=== PATIENT | male | born 1935 | race Caucasian/White ===

== ENCOUNTER 2022-10-24 09:28 | Outpatient (CLI) | payer MEDICARE, BC, SELFPAY | END 2022-10-24 09:29 | disposition home or self-care (01) | PROVIDERS: Visit Provider Family Medicine | DX: I10 Essential (primary) hypertension (principal); I48.91 Unspecified atrial fibrillation | CPT/HCPCS: 80053; 85651 ==

== ENCOUNTER 2023-06-25 10:58 | Outpatient (CLI) | payer MEDICARE, BC, SELFPAY | END 2023-06-25 10:59 | disposition home or self-care (01) | PROVIDERS: PCP Family Medicine; Visit Provider Family Medicine | DX: Z01.818 Encounter for other preprocedural examination (principal); I10 Essential (primary) hypertension | CPT/HCPCS: 80048; 85025 ==

== ENCOUNTER 2023-07-11 11:22 | Inpatient (IN) | payer MEDICARE, BC, SELFPAY ==
[2023-07-10] VITALS (25 sets, daily range): BP systolic 86–116; BP diastolic 55–78; PULSE 84–121; RESP 14–18; TEMP 35.6–36.9; O2SAT 90–100; BMI 31.1
[2023-07-10] MEDS: fentaNYL 100 MCG/2 ML inj IVP (06:32)
[2023-07-10] MEDS: OXYCODONE (CR) 10 MG TAB.ER.12H PO (06:32)
[2023-07-10] MEDS: MIDAZOLAM HCL 1 MG/ML inj IVP (06:32)
[2023-07-10] MEDS: ACETAMINOPHEN 500 MG TABLET 1000 MG PO ×3 (06:32→20:22)
[2023-07-10] MEDS: LACTATED RINGERS 1000 ML 1,000 ML 100 ML IV (06:35)
--- OUTSIDE RECORDS SUMMARY | 2023-07-10 06:47 | XMS_ITS | Encounter Summary ---
Author Name [facility] Organization [facility] Address [address] [place] [address] Support Name Relationship Address Phone DANIEL CUEVAS Next of Kin [phone] [place] [address] DANIEL CUEVAS Emergency Contact [address], [place] [address] Insurance Providers: All historical and current Section Date Range: From patient's date of to the date document was created. This section includes the names of all active insurance providers for the patient. Insurance Provider Type of Coverage Plan Name Start of Policy Coverage End of Policy Coverage Group Number Member ID Insurance Provider's Telephone Number Policy Mathur's Name Patient's Relationship to Policy Mathur BCBS FERCHO VENTURA (WNR) MEDICARE ADVANTAGE DEBBIE REED IDU Apr 02, 2016 [id number] [phone] SARA CUEVAS PATIENT Selected Encounter This section includes the information on record at [place] for the Encounter. Date/Time Encounter Type Encounter Description Reason Pro vider Source IHE Encounter Template Text not used by [place]
--- OUTSIDE RECORDS SUMMARY | 2023-07-10 06:47 | XMS_ITS | Clinical Summary ---
Author Name Unknown Organization [place] Address [facility] [place] [address] Care Team Providers Care Varnish Mixer Name Role Phone Tony Ramos Primary Care Provider Sin Jones MD Unavailable [phone] Allergies Active Allergy Reactions Criticality Noted Date Comments Furosemide Rash Low 11/14/2022 Rash, Itching Ibuprofen Swelling Medium 03/07/2016 Swelling of Lips and numbness Medications Medication Sig Dispensed Refills Start Date End Date Status dutasteride (AVODART) 0.5 MG capsule Take 0.5 mg by mouth daily 0 Active amLODIPine (NORVASC) 5 MG tabletIndications:Hyp ertension Take 5 mg by mouth daily 0 Active apixaban ANTICOAGULANT (ELIQUIS) 5 MG tablet Take 5 mg by mouth 2 times daily 0 Active Calcium Carbonate-Vitamin D 500-5 MG-MCG TABS Take 0.5 tablets by mouth every other day 0 Active diltiazem (CARDIZEM) 120 MG tablet Take 120 mg by mouth 4 times daily 0 Active furosemide (LASIX) 40 MG tablet Take 40 mg by mouth daily 0 Active hydrOXYzine (ATARAX) 10 MG tablet Take 10-20 mg by mouth every 6 hours as needed for itching 0 Active multivitamin w/minerals (THERA-VIT-M) tablet Take 1 tablet by mouth daily 0 Active spironolactone (ALDACTONE) 25 MG tablet Take 25 mg by mouth daily 0 Active Multiple Vitamins-Minerals (PRESERVISION AREDS PO) Take 1 tablet by mouth daily 0 Active pyridOXINE (VITAMIN B-6) 50 MG tablet Take 50 mg by mouth daily 0 Active tamsulosin (FLOMAX) 0.4 MG capsuleIndications:Ri ght inguinal hernia Take 1 capsule (0.4 mg) by mouth daily Begin 4 days before surgery, including morning of surgery. 7 capsule 0 11/14/2022 Active Social History Tobacco Use Types Packs/Day Years Used Date Smoking Tobacco: Former Alcohol Use Standard Drinks/Week Comments No 0 (1 standard drink = 0.6 oz pur e alcohol) 1Xweek Adolescent Education Answer Date Record ed Getting School Help Needed Not on file 12/23 Sex and Gender Information Value Date Recorded Sex Assigned at Not on file Gender Identity Not on file Sexual Orientation Not on file Last Filed Vital Signs Vital Sign Reading Time Taken Comments Blood Pressure 121/69 11/14/2022 12:30 PM CDT Pulse 79 11/14/2022 12:30 PM CDT Temperature - - Respiratory Rate 14 03/07/2016 10:2 0 AM CLOUD DEVELOPER Oxygen Saturation 97% 11/14/2022 12: 30 PM CDT Inhaled Oxygen Concentration - - Weight 93 kg (205 lb 2 oz) 11/14/2022 1 2:30 PM CDT patient reported Height 171.5 cm (5' 7.5) 11/14/2022 12 :30 PM CDT patient reported Body Mass Index 31.65 11/14/2022 12:30 PM CDT Plan of Treatment Health Maintenance Due Date Last Done Comments ADVANCE CARE PLANNING 1935 ANNUAL REVIEW OF HM ORDERS 1935 ZOSTER IMMUNIZATION (1 of 2) 1985 RSV VACCINE ( & 60+) (1 - 1-dose 60+ series) 1995 FALL RISK ASSESSMENT 01/18/2000 MEDICARE ANNUAL WELLNESS VISIT 01/18/2000 Pneumococcal Vaccine: 65+ Years (2 of 2 - PPSV23 or PCV20) 01/12/2015 01/12/2014 COVID-19 Vaccine ( season) 2022 03/18/2021, 03/18/2021, 06/03/2020, Additional history exists INFLUENZA VACCINE (#1) 2022 02/03/2021, 2016 PHQ-2 (once per calendar year) 2023 DTAP/TDAP/TD IMMUNIZATION (3 - Td or Tdap) 08/05/2029 08/06/2019, 04/24/2015 HPV IMMUNIZATION Aged Out No longer e ligible based on patient's age to complete this topic IPV IMMUNIZATION Aged Out No longer e ligible based on patient's age to complete this topic MENINGITIS IMMUNIZATION Aged Out No l onger eligible based on patient's age to complete this topic RSV MONOCLONAL ANTIBODY Aged Out No l onger eligible based on patient's age to complete this topic Care Teams Varnish Mixer Relationship Specialty Start Date End Date Tony Ramos [facility] [address] [place] [address] PCP - General Family Practice 03/06/16 Sin Jones MD [address] [facility] [address] [place] [address] Assigned Surgical Provider 11/18/22
--- OUTSIDE RECORDS SUMMARY | 2023-07-10 06:47 | XMS_ITS ---
Author Name Unknown Organization [facility] Address [address] [place] [address] Care Team Providers Care Firing Pin Gauger Name Role Phone Unavailable Unavailable Unavailable Surgery Details Not on file Complications Check Surgery Details section. Procedure Estimated Blood Loss Check Surgery Details section. Procedure Findings Check Surgery Details section. Procedure Specimens Taken Check Surgery Details section.
--- OUTSIDE RECORDS SUMMARY | 2023-07-10 06:47 | XMS_ITS | Referral Summary ---
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
--- OUTSIDE RECORDS SUMMARY | 2023-07-10 06:47 | XMS_ITS | Encounter Summary ---
Author Name [facility] Organization [facility] Address [address] [place] [address] Support Name Relationship Address Phone FAITH DANIEL Asher Next of Kin [address] [place] [address] IFEOMA CUEVASAARON Asher Emergency Contact [phone] [place] [address] Insurance Providers: All historical and current [...] Mathur's Name Patient's Relationship to Policy Mathur BC FERCHO VENTURA (WNR) MEDICARE ADVANTAGE DEBBIE REED IDU Apr 02, 2016 [id number] [phone] SARA CUEVAS PATIENT Selected Encounter This section includes the information on record at [place] for the Encounter. Date/Time Encounter Type Encounter Description Reason Pro vider Source August 14, 2022 03:32 PM Outpatient Encounter COMMUNITY CARE CONSULT IHE Encounter Template Text not used by [place] Plan of Treatment: Future Appointments (+ 6 months) and Future Tests (+/- 45 days) The Plan of Treatment section includes future care activities for the patient from all [place] treatmentfacilities. This section includes future appointments and future orders which are active, pending or scheduled. Future Appointments This section includes appointments that were scheduled to occur 6 months from the date of the Encounter, up to a maximum of 20 appointments. The data comes from all [place] treatment facilities. Appointment Date/Time Appointment Type Appointme nt Facility Name Sep 20, 2022 10:00 AM [facility] Oct 11, 2022 09:00 AM AMBULATORY - MEDICINE [facility] Nov 22, 2022 08:00 AM AMBULATORY - MEDICINE [facility] Encounter Notes: All associated encounter notes This section contains the clinical notes associated to the Encounter. Date/Time Encounter Note(s) Provider Source August 14, 2022 03:33 PM PHARMACY NOTE: LOCAL TITLE: PHARMACY NON [facility] CARE MEDICATIONS STANDARD TITLE: PHARMACY NOTE DATE OF NOTE: AUGUST 14, 2022@15:33 ENTRY DATE: AUGUST 14, 2022@15:33:15 AUTHOR: JESSICA WATTERS COSIGNER: URGENCY: STATUS: COMPLETED [facility] RECEIVED electronic prescription(s) (eRX(s)) from NON-VA Provider: Date eRX received: July not eligible to receive non-VA prescription(s) at this time. Prescription(s) REDIRECTED via FAX to [facility] (Dual[facility] eRx Reference #: [id number] eRx Prescription Information: eRx Drug: apixaban 5 mg tablet (ELIQUIS) eRx Qty: 28 eRx Refills: 0 eRx Days Supply: eRx Written Date: AUGUST 14, 2022 eRx Issue Date: Prohibit Renewals: No eRx Sig: Take 1 tablet (5 mg total) by mouth 2 (two) times a day for 14 days. /cheko/ MIRANDA YORK Pharmacist Signed: 08/14/2022 15:[address] [facility]
--- OUTSIDE RECORDS SUMMARY | 2023-07-10 06:47 | XMS_ITS | Referral Summary ---
Author Name Unknown Organization [facility] Address [address] [place] [address] Care Team Providers Care Tow Mate Name Role Phone Elsewhere, Pcp Primary Care Provider Unavailabl e Source Comments Patient records contain information from all sites at [facility]. For routine questions regarding patient records, call [phone] during business hours, M-F 8:00 AM - 5:00 PM Central Time. Record requests for emergency care only can be directed to [phone] at any time.[facility] Allergies Active Allergy Reactions Criticality Noted Date Comments Ibuprofen Angioedema (Reselect Reaction) 01/07 Medications Medication Sig Dispensed Refills Start Date End Date Status amLODIPine (NORVASC) 5 mg tablet Take 1 tablet by mouth daily. 0 02/22/2022 Active aspirin 325 mg tablet Take 1 tablet by mouth daily. 0 02/22/2022 Active cyanocobalamin (VITAMIN B12) 100 mcg tablet Take 1 tablet by mouth daily. 0 02/22/2022 Active pyridoxine, vitamin B6, (VITAMIN B6) 50 mg tablet Take 1 tablet by mouth daily. 0 02/22/2022 Active MULTIVITAMIN ORAL Take 1 tablet by mouth daily. 0 02/22/2022 Active calcium carbonate/vitamin D3 (CALCIUM 500 + D ORAL) Take by mouth. 0.5 a capsul every other day 0 Active vitamins A,C,U-gtmd-ifkdxi (PRESERVISION AREDS) 7,160 Units-113 mg-100 Units per tablet Take 1 tablet by mouth daily. 0 Active dilTIAZem CD (CARDIZEM CD/CARTIA XT) 120 mg 24 hr capsule Take 1 capsule (120 mg total) by mouth daily. 30 capsule 1 07/25/2022 Active Eliquis 5 mg tablet TAKE 1 TABLET (5 MG TOTAL) BY MOUTH 2 (TWO) TIMES A DAY FOR 14 DAYS. 60 tablet 11 08/25/2022 Active furosemide (LASIX) 40 mg tablet Take 1 tablet (40 mg total) by mouth daily. 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 10/20/2017 Resolved Problems Problem Noted Date Diagnosed Date Resolved Date Fracture Hip Closed Initial Left 10/21/2017 07/25/2022 Fracture Hip Closed Initial Left 10/20/2017 10/20/2017 Fracture Femur Intertrochant alex Displaced Closed Subsequent With Routine Healing Left 10/20/2017 07/25/2022 Immunizations Name Administration Dates Next Due Influenza high dose QV(65 years or older) (PF) 1 04/05/2020 PCV13 01/12/2014 SARS-COV-2 (COVID-19) - PFIZ ER (Discontinued)(12 years or older) 06/03/2020,04/30/2020 SARS-COV-2 (COVID-19) - PFIZ ER TS(Discontinued)(12 years or older) 03/18/2021 Tdap 08/06/2019,04/24/2015 influenza high dose (65 years or older) (PF) Social History Tobacco Use Types Packs/Day Years Used Date Smoking Tobacco: Former Cigars Passive Smoke Exposure: Never Smokeless Tobacco: Former Tobacco Cessation:Counseling Given: Not Answered Alcohol Use Standard Drinks/Week Comments No 0 (1 standard drink = 0.6 oz pur e alcohol) PHQ-2 Answer Date Recorded PHQ-2 Score 0 08/10/2022 Nutrition Answer Date Recorded Nutrition: EVOO Fat Source Unknown 06/04 Nutrition: Servings of Fruits/Vegetables per Day Not on file 06/04/2020 Dental Answer Date Recorded Dental: Regular Dentist Unknown 06/05/19 Sex and Gender Information Value Date Recorded Sex Assigned at Male 11/09/2017 9:35 AM CDT Gender Identity Male 11/09/2017 9:35 AM CDT Sexual Orientation Straight 11/09/2017 9: 35 AM CDT Last Filed Vital Signs Vital Sign Reading Time Taken Comments Blood Pressure 120/70 09/14/2022 11:20 AM CDT Pulse 112 09/14/2022 11:20 AM CDT Temperature 36.2 ??C (97.2 ??F) 09/14/2022 11:20 AM C DT Respiratory Rate 16 09/14/2022 11:20 AM CDT Oxygen Saturation 98% 08/15/2022 1:42 PM CDT Inhaled Oxygen Concentration - - Weight 90.7 kg (200 lb) 09/14/2022 11:20 AM CDT Height 172.7 cm (5' 7.99) 08/10/2022 1:56 PM CD T Body Mass Index 30.42 08/10/2022 1:56 PM CDT Plan of Treatment Not on file Medical Devices Implanted Type Area Commercial Roofer Device Identifier Shelf Expiration Date Model / Serial / Lot 125 Left Trigen Intertan 10s Nail Tl-6al-4v Implanted:Qty : 1 on 10/21/2017 at [facility] Other Left: Hip [employer] [id number] 04/02/2023 [id number] / / [id number] Trigen Intertan Subtroch Lag Screw Tl-6al-4v Implanted:Qty : 1 on 10/21/2017 at [facility] Other Left: Hip [employer] 08/29/2025 [id number] / / [id number] Advance Directives For more information, please contact: [phone] * Full Code (Latest Code Status on File) Date Activated Date Inactivated Comments 10/25/2017 12:02 AM 11/02/2017 3:56 PM Question Answer Comments Full Code: Not Discussed Due to: Not medically appropriate * Full Code Date Activated Date Inactivated Comments 10/21/2017 12:22 AM 10/24/2017 11:59 PM Question Answer Comments Full Code: Not Discussed Due to: Not medically appropriate Care Teams Tow Mate Relationship Specialty Start Date End Date Elsewhere, Pcp PCP - General Petrophysical Engineer 04/11/19
--- OUTSIDE RECORDS SUMMARY | 2023-07-10 06:47 | XMS_ITS | Encounter Summary ---
Author Name Department of [facility] Organization [facility] of [facility] Address [address] [place] [address] Support Name Relationship Address Phone DANIEL CUEVAS Next of Kin [address] [place] [address] FAITHDANIEL Emergency Contact [phone] [place] [address] Insurance Providers: All historical and current [...] Mathur's Name Patient's Relationship to Policy Mathur [facility] (WNR) MEDICARE ADVANTAGE DEBBIE SOTOU Apr 02, 2016 [id number] [phone] SARA CUEVAS PATIENT Selected Encounter This section includes the information on record at [place] for the Encounter. Date/Time Encounter Type Encounter Description Reason Provider Source August 18, 2022 10:37 AM QNHP OL DIG ASSMT&MGMT 21+ CLINICAL PHARMACY ICD-10-CM Z79.01 jail (current) use of anticoagulants JAKE MCKEON [facility] Encounter Template Text not used by [place] Assessments - Encounter Diagnoses This section includes the primary and secondary diagnoses documented for the Encounter. 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 This section includes future appointments and future orders which are active, pending or scheduled. Future Appointments This section includes appointments that were scheduled to occur 6 months from the date of the Encounter, up to a maximum of 20 appointments. The data comes from all [place] treatment facilities. Appointment Date/Time Appointment Type Appointme nt Facility Name Sep 20, 2022 10:00 AM AMBULATORY - MEDICINE GANESH ORELL[facility] Oct 11, 2022 09:00 AM AMBULATORY - MEDICINE KATHY ROSARIO [facility] Nov 22, 2022 08:00 AM AMBULATORY - MEDICINE GANESH ORELLANA [facility] Encounter Notes: All associated encounter notes This section contains the clinical notes associated to the Encounter. Date/Time Encounter Note(s) Provider Source August 18, 2022 10:37 AM MEDICATION MGT CON SULT: LOCAL TITLE: ANTICOAGULATION CLINIC CONSULT STANDARD TITLE: MEDICATION MGT CONSULT DATE OF NOTE: AUGUST 18, 2022@10:37 ENTRY DATE: AUGUST 18, 2022@10:37:17 AUTHOR: JAKE MCKEON EXP COSIGNER: URGENCY: STATUS: COMPLETED ANTICOAGULATION CLINIC CONSULT Has ADDENDA DOAC INITIATION - Anticoagulant: Apixaban 5mg q12h Indication(s): Afib - Relevant PMH: -CKD3 - Prior major bleeds: -Prone to epistaxis, rt nostril only; nothing major thus far. Uses vaseline prn. - Prior anticoagulants: Pt was on apixaban 2.5mg q12h in 2018; perhaps DVT ppx post-ROBSON/fall - Start date: 07/12/22 per [place] records - Anticipated duration: Indefinite - CHADS2-VASC = age+2, htn = 3: Low risk - HAS-BLED = age =1: Moderate risk Care Coordination: [facility] [place] [facility] SUBJECTIVE/OBJECTIVE Obtained from chart review, [facility]/outside records, and patient. No Active bleeding/increased bleeding risk: - Occ nosebleed, rt nostril, since starting OAC; gently putting vaseline in nostril. No Active endocarditis: No Falls risk: Nothing recent, but did sustain hip fx after a fall. Now legs are not same length, has special shoes. No Abnormal mental status\compliance concerns: YES Significant drug interactions: - Pt self d/c ASA d/t epistaxis - Diltiazem: Minor DDI unless other meds that are inhibitors of both CY and P-glycoprotein are added. - Denied aspirin/NSAID use; counseled to avoid d/t bleed risk o He is aware to use APAP YES Alcohol use: Occ beer, never more than one - Advised etoh intake >2/24hrs and/or >= 8/week increases bleed risk Yes Renal or hepatic dysfunction: CKD3 No Valvular disease (mitral stenosis) or mechanical valve replacement: -ECHO, Pending 08/29 at [facility] No Active cancer/hypercoagulability: No History of bariatric or bowel resection surgery: No Weight >150kg/BMI >50. - Comanaged patients YES Agrees to management by our AC clinic; comanagement is not allowed. YES Agrees to contact us if DOAC stopped/dose changed by other providers. YES Agreeable to routine [facility] labs when requested. YES Agreeable to contacting us with major changes(health/medications) at OSH. - ELEN or already been on 2-4weeks No Recent health changes: No Upcoming procedures requiring interruption: No Bleeding or thromboembolic complications: -Occ nosebleed, rt nostril, since starting OAC No Falls or injuries: Identified by dashboard to review the following: Dosing Issue: Choice of anticoagulant and dose were evaluated for appropriateness Details: Other: tx as Afib Active and Recently Outpatient Medications (excluding Supplies): Active Outpatient Medications Status 1) AMLODIPINE BESYLATE 5MG TAB TAKE ONE TABLET BY MOUTH ACTIVE EVERY DAY FOR BLOOD PRESSURE 2) APIXABAN 5MG TAB TAKE ONE TABLET BY MOUTH EVERY 12 ACTIVE HOURS TO PREVENT STROKES 3) MULTIVIT/OPHTH AREDS2/LUTE/ZEAX CAP/TAB TAKE 1 TABLET ACTIVE BY MOUTH TWICE A DAY Active Non-VA Medications Status 1) Non-VA ASPIRIN 325MG TAB 325MG MOUTH EVERY DAY ACTIVE D/C 2) Non-VA CYANOCOBALAMIN 100MCG TAB 100MCG MOUTH EVERY DAY 3) Non-VA MULTIVITAMIN CAP/TAB 1 TABLET MOUTH EVERY DAY ACTIVE 4) Non-VA PYRIDOXINE HCL 50MG TAB 50MG MOUTH EVERY DAY ACTIVE 5) Non-VA SAW PALMETTO 1 CAPSULE MOUTH EVERY DAY ACTIVE DILTIAZEM CD 120MG Q24HR 8 Total Medications Labs ---- Age: 87 Height: 69.75 in [177.2 cm] (02/22/2022 14:39) Weight: 203.6 lb [92.35 kg] (02/22/2022 14:39) BMI: 29.5 Collection DT Specimen Test Name Result Units Ref Range 08/15/22 [place] Creat 1.5 08/10/22 [place] Creat 1.4 07/12/22 [place] Creat 1.3 02/22/2022 15:44 PLASMA CREATININE 1.6 H mg/dL 0.7 - 1.2 Cockcroft & Gault (Actual body weight) = ~45 mL/min Outside hemoglobin Lab result: 11.9 L Date: July 12, 2022 Location: [facility] Outside platelet count Lab result: 288 Date: July 12, 2022 Collection DT Spec WBC HGB HCT PLT MCV 02/22/2022 15:44 BLOOD 8.12 13.0 L 38.7 L 209 96.0 Collection DT Specimen Test Name Result Units Ref Range 02/22/2022 15:44 PLASMA BILIRUBIN, TOTAL 0.8 mg/dL 0.2 - 1.2 02/22/2022 15:44 PLASMA ALKALINE PHOSPHAT 64 U/L 40 - 150 02/22/2022 15:44 PLASMA AST/SGOT 72 H U/L Ref: <=34 02/22/2022 15:44 PLASMA ALT/SGPT 47 U/L Ref: <=55 ASSESSMENT/PLAN - Appropriate for DOAC use. - Baseline labs within the past ~30 days: o partially missing -LFTs, updated remaining labs will be checked with a creat f/u lab as below - MEETS/Does NOT meet 2 out of 3 criteria (age >/= 80 years, creatinine >/= 1.5,weight </= 60 kg) for apixaban dose reduction in A.fib. - Difficult to tell at this point if dose reduction is actually needed. Recent diuretic changes; unclear if Creat runs 1.5 or greater or not. Monitor- upward trend. 09/20/22 @1000 LCP Creat CC: 09/21 for creat results and check [facility] for ECHO results [08/29]. Pt is willing to cut tabs if his apixaban dose does need a decrease. - Approve DOAC use: Apixaban 5mg q12h - jail use of anticoagulants added to problem list. - Education attempt(s) below. Will mail DOAC/Rx education materials. - Appropriate review planned: periodic - Lab monitoring frequency defined by dashboard or as clinically indicated. - Monitor dashboard for labs, drug interactions, and compliance. Time spent: 50 minutes Anticoagulation Educational Assessment Part One Barriers/Special Needs No barriers identified Part Two Readiness to learn No barriers identified PARTICIPANTS: Patient TEACHING STRATEGY: 1:1, Written/print materials Apixaban Content Reviewed: o Recognize medication by names (apixaban (Eliquis)) & proper tablet identification (on prescription bottle) o Indication, expected duration for therapy o Daily dosage, importance of medication adherence, management of missed/extra doses o Monitoring requirements, importance of compliance with follow-up lab monitoring requirements o Risks and benefits of therapy to include possible adverse reactions or medication failure and what to do if these occur; fall-associated risks & importance of seeking urgent care if falls occur o Interactions (drug, alcohol, and disease states) o Importance of informing your anticoagulation provider as soon as possible when major changes in medications/health occur, upcoming procedures are expected that require interruption, or for evidence of new bleeds or thromboses Patient received a written, detailed copy of the educational handout to include contact information for anticoagulation clinic and instructions for how to obtain supply of medication. PATIENT/FAMILY RESPONSE (OUTCOME): Verbalizes critical information and understanding about the topic FOLLOW-UP RECOMMENDED: None needed /cheko/ JAKE MCKEON [facility] Clinical Data Processing Systems Project Planner Signed: 08/18/2022 15:55 08/18/2022 ADDENDUM STATUS: COMPLETED PCP- - [facility]: DILTIAZEM CD 120MG Q24HR -[place] provider aware pt also on amlodipine -Not sure why this RX was not sent with DOAC RX, but this was added when Afib diagnosed. Thanks /cheko/ JAKE MCKEON [facility] Clinical Data Processing Systems Project Planner Signed: 08/18/2022 15:58 Receipt Acknowledged By: 08/18/2022 16:31 /cheko/ KINGSTON TOSCANO CNP NP [place] 08/21/2022 09:23 /cheko/ DARELL [facility] 08/31/2022 ADDENDUM STATUS: COMPLETED Incorrect Darell Wayne tagged on addendum. This sign writer hand is [facility] care management coordinator and has reviewed above information. /cheko/ DARELL WAYNE Signed: 08/31/2022 10:24 JAKE MCKEON [facility]
--- OUTSIDE RECORDS SUMMARY | 2023-07-10 06:47 | XMS_ITS | Encounter Summary ---
Author Name [facility] Organization Department of [facility] Address [address] [place] [address] Support Name Relationship Address Phone FAITH DANIEL Asher Next of Kin [address] [place] [address] IFEOMA CUEVASAARON Asher Emergency Contact [phone] [place] [address] Insurance Providers: All historical and current [...] Mathur's Name Patient's Relationship to Policy Mathur [facility] (WNR) MEDICARE ADVANTAGE DEBBIE REED IDU Apr 02, 2016 [id number] [phone] SARA CUEVAS PATIENT Selected Encounter This section includes the information on record at [place] for the Encounter. Date/Time Encounter Type Encounter Description Reason Provider Source May 07, 2023 12:04 PM MTMS BY SIRENA SCOTT 15 MIN TELEPHONE/ELIO HALE ICD-10-CM Z79.01 [facility] (current) use of anticoagulants JUMANA DE LA CRUZ Encounter Template Text not used by [place] Assessments - Encounter Diagnoses This section includes the primary and secondary diagnoses documented for the Encounter. Date/Time Primary/Secondary Diagnosis Diagnosis Name Provider Source May 07, 2023 12:04 PM PRIMARY [facility] (current) use of anticoagulants [facility] May 07, 2023 12:04 PM SECONDARY Encounter for therapeutic drug level monitoring [facility] May 07, 2023 12:04 PM SECONDARY Unspecified atrial fibrillation [facility] Encounter Notes: All associated encounter notes This section contains the clinical notes associated to the Encounter. Date/Time Encounter Note(s) Provider Source May 07, 2023 12:04 PM PHARMACY OUTPATIEN T MEDICATION MGT NOTE: LOCAL TITLE: PHARMACY ANTICOAGULATION CLINIC F/U STANDARD TITLE: PHARMACY OUTPATIENT MEDICATION MGT NOTE DATE OF NOTE: MAY 07, 2023@12:04 ENTRY DATE: MAY 07, 2023@12:04:14 AUTHOR: VINOD RODRIGUEZ COSIGNER: URGENCY: STATUS: COMPLETED INITIAL DOAC FOLLOW-UP - Anticoagulant: Rivaroxaban 15mg tab with breakfast Indication(s): Afib - Relevant PMH: - CKD3 - Prior major bleeds: o Prone to epistaxis (R nostril only), uses Vaseline PRN - Prior anticoagulants: o Apixaban 2.5mg q12h (2017, perhaps DVT ppx post-ROBSON/fall); 07/2022-03/2023 (unclear why LMD recommended change, pcp notes indicate itching, do not have local records to review) - Start date: switched to [place] 03/2023 - Anticipated duration: Indefinite - CHADS2-VASC = age +2, HTN = 3: low risk - HAS-BLED = age = 1: moderate risk Care Coordination: - [facility] notes in [facility] - Son (Chad) assists with medical care. His cell number is listed as home phone ([phone]). SUBJECTIVE/OBJECTIVE: Left Voice message for patient's son Chad at [phone] History obtained from chart review and patient at [phone] . No Recent health changes: No Upcoming procedures requiring interruption: No Bleeding or thromboembolic complications: No Falls or injuries: - No falls but uses a cane when he goes outside. Yes Significant medication changes/new DDIs: - Continues: - Diltiazem: Minor DDI unless other meds that are inhibitors of both CY and P-glycoprotein are added. - Denies aspirin/NSAID use; counseled to avoid d/t bleed risk Yes Aalcohol use: - Baseline: Just a occasional half can beer with his son. No Compliance concerns/frequently missed doses: - PT stated the correct dose and DOAC as prescribed. YES Taking rivaroxaban 15/20mg tablets with food: breakfast. YES Stopped prior anticoagulant upon starting new agent: Dashboard flags: none Lab: ---- Age: 88 Weight: 203.6 lb [92.35 kg] (03/29/2023 11:30) Height: 69.75 in [177.2 cm] (03/29/2023 11:30) CREATININE 1.4 H PLASMA (03/29/23 12:26) 1.8 H PLASMA (11/22/22 07:44) 1.5 H PLASMA (09/20/22 09:31) Cockcroft & Gault (Actual body weight) = 47.6 mL/min Collection DT Spec WBC HGB HCT PLT MCV 03/29/2023 12:26 BLOOD 8.11 12.3 L 38.6 L 216 93.7 09/20/2022 09:31 BLOOD 7.11 12.1 L 37.5 L 237 94.9 Collection DT Specimen Test Name Result Units Ref Range 03/29/2023 12:26 PLASMA BILIRUBIN, TOTAL 0.4 mg/dL 0.2 - 1.2 03/29/2023 12:26 PLASMA ALKALINE PHOSPHAT 99 U/L 40 - 150 03/29/2023 12:26 PLASMA AST/SGOT 42 H U/L Ref: <=34 03/29/2023 12:26 PLASMA ALT/SGPT 16 U/L Ref: <=55 ASSESSMENT/PLAN: - Taking DOAC correctly, with compliance, and without adverse effects attributable to the use of the drug. - Continue anticoagulation at current dose. - No questions about written education previously sent. - Monitor dashboard for labs, drug interactions, and compliance. - Lab monitoring frequency defined by dashboard or as clinically indicated. - 90-day supply Rx needed by pharmacist; Flagged pharmacist. Time spent: 20 minutes Patient education of treatment plan: Patient indicates readiness to learn, verbalizes understanding, agreement and satisfaction with the treatment plan. Denies further questions. /cheko/ Cert. Reuben Home Theatre Technician Cert. Home Theatre Technician Signed: 05/07/2023 12:13 Receipt Acknowledged By: 05/07/2023 12:23 /es/ Steff De La Cruz, SirenaD Clinical Pharmacist - [facility] VINOD RODRIGUEZ [facility]
--- OUTSIDE RECORDS SUMMARY | 2023-07-10 06:47 | XMS_ITS | Continuity of Care Document ---
Author Name [facility] Organization [facility] Care Team Providers Care Steam Meter Reader Name Role Phone [facility] Unavailable Unavailable Problems Combined list of problems from [facility] and [facility] facilities. It does not include entries that were removed or entered in error. Problem Status Onset Date Problem Type Date of Resolution Comments Source Atrial fibrillation Active Condition [facility] Bilateral hearing loss Active Condition [facility] Hypertension Active Condition [facility] Inguinal hernia Active Condition Mar 29, 2023 Entered By: GILSON TOSCANO Comment: right [facility] Joint pain Active Condition [facility] Long-term current use of anticoagulant Active Condition [facility] Pain of left hip joint Active Condition [facility] Diagnosis: ICD-10-CM Z79.01 [facility] (current) use of anticoagulants Active Diagnosis [facility] Diagnosis: ICD-10-CM I48.91 Unspecified atrial fibrillation Active Diagnosis [facility] Diagnosis: ICD-10-CM Z51.81 Encounter for therapeutic drug level monitoring Active Diagnosis [facility] Diagnosis: ICD-10-CM I10 Essential (primary) hypertension Active Diagnosis [facility] Medications Combined list of outpatient medications from [facility] and [facility] facilities.Medications provided include 1) outpatient medications from the last 15 months, and 2) patient-reported medications. Medication Details Route Status Patient Instructions Prescription Expires Prescription Number Last Dispense Date Ordering Provider Order Date Source AMLODIPINE BESYLATE 5MG TAB TAKE ONE TABLET BY MOUTH EVERY DAY FOR BLOOD PRESSURE ORALLY ACTIVE 03/27/2024 [id number] Tanna TOSCANOISTINE N 2022 [facility] AMLODIPINE BESYLATE 5MG TAB TAKE ONE TABLET BY MOUTH EVERY DAY FOR BLOOD PRESSURE ORALLY DISCONT INUED 02/23/2023 [id number] Tanna TOSCANOISTINE N 2021 [facility] APIXABAN 2.5MG TAB TAKE ONE TABLET BY MOUTH EVERY 12 HOURS ORALLY DISCONT INUED 11/24/2023 [id number] CONSTANCE RUIZ 2022 [facility] APIXABAN 5MG TAB TAKE ONE TABLET BY MOUTH EVERY 12 HOURS TO PREVENT STROKES ORALLY DISCONT INUED (EDIT) 08/19/2023 [id number] Ghazala MCKEON INAH 2022 [facility] APIXABAN 5MG TAB TAKE ONE TABLET BY MOUTH EVERY 12 HOURS TO PREVENT STROKES ORALLY DISCONT INUED 09/15/2022 [id number] Tanna TOSCANO HRISTINE N 2022 [facility] CALCIUM 250MG/VITAM IN D 125UNT TAB TAKE ONE TABLET BY MOUTH EVERY DAY ORALLY ACTIVE Tanna TOSCANO HRISTINE N 2022 [facility] CYANOCOBALA MIN 500MCG TAB TAKE ONE TABLET BY MOUTH EVERY DAY ORALLY ACTIVE Tanna TOSCANO HRISTINE N 2022 [facility] DILTIAZEM (EQV-TIAZAC AB4) 120MG 24HR CAP TAKE ONE CAPSULE BY MOUTH EVERY DAY FOR HEART RHYTHM ORALLY ACTIVE 08/19/2023 [id number] 4 Tanna TOSCANO HRISTINE N 2022 [facility] MULTIVIT/OP HTH AREDS2/LUTE IN/ZEAXANTH IN CAP/TAB TAKE 1 TABLET BY MOUTH TWICE A DAY ORALLY 06/07/2023 [id number] ZAIRA CHAPMAN 2022 [facility] MULTIVITAMI NS CAP/TAB TAKE ONE TABLET BY MOUTH EVERY DAY ORALLY ACTIVE NSTanna TREJO HRISTINE N 2021 [facility] PYRIDOXINE HCL 50MG TAB TAKE TWO TABLETS BY MOUTH EVERY DAY ORALLY ACTIVE [facility] HRISTINE N 2022 [facility] RIVAROXABAN 15MG TAB TAKE ONE TABLET BY MOUTH EVERY DAY TO PREVENT STROKES WITH LARGEST MEAL OF THE DAY ORALLY ACTIVE 05/07/2024 [id number] LEONOR DE LA CRUZ 2023 [facility] RIVAROXABAN 15MG TAB TAKE ONE TABLET BY MOUTH EVERY DAY TO PREVENT STROKES WITH LARGEST MEAL OF THE DAY ORALLY DISCONT INUED (EDIT) 03/30/2024 [id number] 4 ERIKA LAMBERT 2022 [facility] SAW [place] CAP/TAB TAKE 1 CAPSULE BY MOUTH EVERY DAY ORALLY ACTIVE Tanna TOSCANO 2021 [facility] Allergies, Adverse Reactions, Alerts Combined list of allergies from [facility] [place] [facility] facilities. It does not include entries that were removed or entered in error. Substance Category Reaction Severity Reaction type Status Date Reported Comments Source IBUPROFEN Propensity to adverse reactions to drug (finding) Pharyngeal swelling active [facility] Immunizations Combined list of available immunizations from the Department of [facility] and [facility] facilities. 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 Comments Source INFLUENZA, HIGH-DOSE, QUADRIVALENT 2022 JACQUES ULLOA RIGHT DELTO ID [id number] 197 complet ed [facility] COVID-19 (MODERNA), MRNA, LNP-S, PF, 100 MCG/0.5ML DOSE OR 50 MCG/0.25ML DOSE 2020 207 complet ed [facility] COVID-19 (PFIZER), MRNA, LNP-S, PF, 30 MCG/0.3 ML DOSE, ARASH-SUCROSE (AGES 12+ YEARS) 3 2020 217 complet ed [facility] INFLUENZA, HIGH-DOSE, QUADRIVALENT 2020 197 complet ed [facility] COVID-19 (MODERNA), MRNA, LNP-S, PF, 100 MCG/0.5ML DOSE OR 50 MCG/0.25ML DOSE 2020 207 complet ed [facility] COVID-19 (PFIZER), MRNA, LNP-S, PF, 30 MCG/0.3 ML DOSE 2 2020 208 complet ed [facility] COVID-19 (MODERNA), MRNA, LNP-S, PF, 100 MCG/0.5ML DOSE OR 50 MCG/0.25ML DOSE 2020 207 complet ed [facility] COVID-19 (PFIZER), MRNA, LNP-S, PF, 30 MCG/0.3 ML DOSE 1 2020 208 complet ed [facility] TDAP 2019 115 complet ed [facility] INFLUENZA, HIGH DOSE SEASONAL 2016 135 complet ed [facility] TDAP 2015 115 complet ed [facility] PNEUMOCOCCAL CONJUGATE PCV 13 2013 133 complet ed [facility] Results Combined list of recent chemistry, hematology and other laboratory results from [facility] of Defense and [facility], ranging from 15 months to all on record, depending upon the facility. Order Name Results Value Reference Range Date Interpretation Specimen Comments Source COMPREHE NSIVE METABOLI C PANEL+MG CREATININE [MASS/VOLU ME] IN SERUM OR PLASMA 1.4 0.7 - 1.2 03/29 H Specimen Type: PLASMA No comment entered. Ordering Provider: GILSON TOSCANO Report Released Date/Time: Mar 29, 2023 11:34 AM Reporting Lab: [facility] [place] [address] Performing Lab: [facility] [place] [address] [facility] COMPREHE NSIVE METABOLI C PANEL+MG UREA NITROGEN [MASS/VOLU ME] IN SERUM OR PLASMA 31 8 - 26 03/29 H Specimen Type: PLASMA No comment entered. Ordering Provider: GILSON TOSCANO Report Released Date/Time: Mar 29, 2023 11:34 AM Reporting Lab: [facility] [place] [address] Performing Lab: [facility] [place] [address] [facility] COMPREHE NSIVE METABOLI C PANEL+MG GLUCOSE [MASS/VOLU ME] IN SERUM OR PLASMA 94 70 - 100 03/29 Specimen Type: PLASMA No comment entered. Ordering Provider: GILSON TOSCANO Report Released Date/Time: Mar 29, 2023 11:34 AM Reporting Lab: [facility] [place] [address] Performing Lab: [facility] [place] [address] [facility] COMPREHE NSIVE METABOLI C PANEL+MG SODIUM [MOLES/VOL UME] IN SERUM OR PLASMA 138 136 - 145 03/29 Specimen Type: PLASMA No comment entered. Ordering Provider: GILSON TOSCANO Report Released Date/Time: Mar 29, 2023 11:34 AM Reporting Lab: [facility] [place] [address] Performing Lab: [facility] [place] [address] [facility] COMPREHE NSIVE METABOLI C PANEL+MG POTASSIUM [MOLES/VOL UME] IN SERUM OR PLASMA 4.3 3.5 - 5.1 03/29 Specimen Type: PLASMA No comment entered. Ordering Provider: GILSON TOSCANO Report Released Date/Time: Mar 29, 2023 11:34 AM Reporting Lab: [facility] [place] [address] Performing Lab: [facility] [place] [address] [facility] COMPREHE NSIVE METABOLI C PANEL+MG CHLORIDE [MOLES/VOL UME] IN SERUM OR PLASMA 105 98 - 107 03/29 Specimen Type: PLASMA No comment entered. Ordering Provider: GILSON TOSCANO Report Released Date/Time: Mar 29, 2023 11:34 AM Reporting Lab: [facility] [place] [address] Performing Lab: [facility] [place] [address] [facility] COMPREHE NSIVE METABOLI C PANEL+MG CARBON DIOXIDE, TOTAL [MOLES/VOL UME] IN SERUM OR PLASMA 23 - 29 03/29 Specimen Type: PLASMA No comment entered. Ordering Provider: GILSON TOSCANO Report Released Date/Time: Mar 29, 2023 11:34 AM Reporting Lab: [facility] [place] [address] Performing Lab: [facility] [place] [address] [facility] COMPREHE NSIVE METABOLI C PANEL+MG CALCIUM [MASS/VOLU ME] IN SERUM OR PLASMA 9.3 8.4 - 10.2 03/29 Specimen Type: PLASMA No comment entered. Ordering Provider: GILSON TOSCANO Report Released Date/Time: Mar 29, 2023 11:34 AM Reporting Lab: [facility] [place] [address] Performing Lab: [facility] [place] [address] [facility] COMPREHE NSIVE METABOLI C PANEL+MG PROTEIN [MASS/VOLU ME] IN SERUM OR PLASMA 7.1 6.0 - 8.3 03/29 Specimen Type: PLASMA No comment entered. Ordering Provider: GILSON TOSCANO Report Released Date/Time: Mar 29, 2023 11:34 AM Reporting Lab: [facility] [place] [address] Performing Lab: [facility] [place] [address] [facility] COMPREHE NSIVE METABOLI C PANEL+MG ALBUMIN [MASS/VOLU ME] IN SERUM OR PLASMA 3.9 3.5 - 5.2 03/29 Specimen Type: PLASMA No comment entered. Ordering Provider: GILSON TOSCANO Report Released Date/Time: Mar 29, 2023 11:34 AM Reporting Lab: [facility] [place] [address] Performing Lab: [facility] [place] [address] [facility] COMPREHE NSIVE METABOLI C PANEL+MG BILIRUBIN. TOTAL [MASS/VOLU ME] IN SERUM OR PLASMA 0.4 0.2 - 1.2 03/29 Specimen Type: PLASMA No comment entered. Ordering Provider: GILSON TOSCANO Report Released Date/Time: Mar 29, 2023 11:34 AM Reporting Lab: [facility] [place] [address] Performing Lab: [facility] [place] [address] [facility] COMPREHE NSIVE METABOLI C PANEL+MG MAGNESIUM [MASS/VOLU ME] IN SERUM OR PLASMA 2.1 1.6 - 2.6 03/29 Specimen Type: PLASMA No comment entered. Ordering Provider: GILSON TOSCANO Report Released Date/Time: Mar 29, 2023 11:34 AM Reporting Lab: [facility] [place] [address] Performing Lab: [facility] [place] [address] [facility] COMPREHE NSIVE METABOLI C PANEL+MG ANION GAP IN SERUM OR PLASMA 10 5 - 15 03/29 Specimen Type: PLASMA No comment entered. Ordering Provider: GILSON TOSCANO Report Released Date/Time: Mar 29, 2023 11:34 AM Reporting Lab: [facility] [place] [address] Performing Lab: [facility] [place] [address] [facility] COMPREHE NSIVE METABOLI C PANEL+MG ALKALINE PHOSPHATAS E [ENZYMATIC ACTIVITY/V OLUME] IN SERUM OR PLASMA 99 40 - 150 03/29 Specimen Type: PLASMA No comment entered. Ordering Provider: GILSON TOSCANO Report Released Date/Time: Mar 29, 2023 11:34 AM Reporting Lab: [facility] [place] [address] Performing Lab: [facility] [place] [address] [facility] COMPREHE NSIVE METABOLI C PANEL+MG ALANINE AMINOTRANS FERASE [ENZYMATIC ACTIVITY/V OLUME] IN SERUM OR PLASMA 16 <55 - 55 03/29 Specimen Type: PLASMA No comment entered. Ordering Provider: GILSON TOSCANO Report Released Date/Time: Mar 29, 2023 11:34 AM Reporting Lab: [facility] [place] [address] Performing Lab: [facility] [place] [address] [facility] COMPREHE NSIVE METABOLI C PANEL+MG ASPARTATE AMINOTRANS FERASE [ENZYMATIC ACTIVITY/V OLUME] IN SERUM OR PLASMA 42 <34 - 34 03/29 H Specimen Type: PLASMA No comment entered. Ordering Provider: GILSON TOSCANO N Report Released Date/Time: Mar 29, 2023 11:34 AM Reporting Lab: [facility] [place] [address] Performing Lab: [facility] [place] [address] [facility] COMPREHE NSIVE METABOLI C PANEL+MG GLOMERULAR FILTRATION RATE/1.73 SQ M.PREDICTE D [VOLUME RATE/AREA] IN SERUM, PLASMA OR BLOOD BY CREATININE -BASED FORMULA (CKD-EPI 2020) 48 60 03/29 L Specimen Type: PLASMA No comment entered. Ordering Provider: GILSON TOSCANO Report Released Date/Time: Mar 29, 2023 11:34 AM Reporting Lab: [facility] [place] [address] Performing Lab: [facility] [place] [address] [facility] CBC LEUKOCYTES [#/VOLUME] IN BLOOD BY AUTOMATED COUNT 8.11 4.0 - 11.0 03/29 Specimen Type: BLOOD No comment entered. Ordering Provider: GILSON TOSCANO Report Released Date/Time: Mar 29, 2023 11:34 AM Reporting Lab: [facility] [place] [address] Performing Lab: [facility] [place] [address] [facility] CBC ERYTHROCYT ES [#/VOLUME] IN BLOOD BY AUTOMATED COUNT 4.12 4.6 - 6.2 03/29 L Specimen Type: BLOOD No comment entered. Ordering Provider: GILSON TOSCANO Report Released Date/Time: Mar 29, 2023 11:34 AM Reporting Lab: [facility] [place] [address] Performing Lab: [facility] [place] [address] [facility] CBC HEMOGLOBIN [MASS/VOLU ME] IN BLOOD 12.3 13.5 - 17.9 03/29 L Specimen Type: BLOOD No comment entered. Ordering Provider: GILSON TOSCANO Report Released Date/Time: Mar 29, 2023 11:34 AM Reporting Lab: [facility] [place] [address] Performing Lab: [facility] [place] [address] [facility] CBC HEMATOCRIT [VOLUME FRACTION] OF BLOOD BY AUTOMATED COUNT 38.6 41 - 54 03/29 L Specimen Type: BLOOD No comment entered. Ordering Provider: GILSON TOSCANO Report Released Date/Time: Mar 29, 2023 11:34 AM Reporting Lab: [facility] [place] [address] Performing Lab: [facility] [place] [address] [facility] CBC MCV [ENTITIC VOLUME] BY AUTOMATED COUNT 93.7 80 - 100 03/29 Specimen Type: BLOOD No comment entered. Ordering Provider: GILSON TOSCANO Report Released Date/Time: Mar 29, 2023 11:34 AM Reporting Lab: [facility] [place] [address] Performing Lab: [facility] [place] [address] [facility] CBC MCH [ENTITIC MASS] BY AUTOMATED COUNT 29.9 27 - 33 03/29 Specimen Type: BLOOD No comment entered. Ordering Provider: GILSON TOSCANO Report Released Date/Time: Mar 29, 2023 11:34 AM Reporting Lab: [facility] [place] [address] Performing Lab: [facility] [place] [address] [facility] CBC MCHC [MASS/VOLU ME] BY AUTOMATED COUNT 31.9 32.0 - 37.5 03/29 L Specimen Type: BLOOD No comment entered. Ordering Provider: GILSON TOSCANO Report Released Date/Time: Mar 29, 2023 11:34 AM Reporting Lab: [facility] [place] [address] Performing Lab: [facility] [place] [address] [facility] CBC PLATELETS [#/VOLUME] IN BLOOD BY AUTOMATED COUNT 216 150 - 400 03/29 Specimen Type: BLOOD No comment entered. Ordering Provider: GILSON TOSCANO Report Released Date/Time: Mar 29, 2023 11:34 AM Reporting Lab: [facility] [place] [address] Performing Lab: [facility] [place] [address] [facility] CBC PLATELET MEAN VOLUME [ENTITIC VOLUME] IN BLOOD BY AUTOMATED COUNT 10.1 7.4 - 10.4 03/29 Specimen Type: BLOOD No comment entered. Ordering Provider: GILSON TOSCANO Report Released Date/Time: Mar 29, 2023 11:34 AM Reporting Lab: [facility] [place] [address] Performing Lab: [facility] [place] [address] [facility] CBC ERYTHROCYT E DISTRIBUTI ON WIDTH [RATIO] BY AUTOMATED COUNT 14.6 11.5 - 14.5 03/29 H Specimen Type: BLOOD No comment entered. Ordering Provider: GILSON TOSCNAO Report Released Date/Time: Mar 29, 2023 11:34 AM Reporting Lab: [facility] [place] [address] Performing Lab: [facility] [place] [address] [facility] HEMOGLOB IN A1C HEMOGLOBIN A1C/HEMOGL OBIN.TOTAL IN BLOOD 6.1 4.0 - 6.0 03/29 H Specimen Type: BLOOD Comment: Values obtained from A1C measurement s can vary. For typical A1C assays, a reported value of 7.0 could actually be between 6.7 and 7.3 if measured by a reference method. A reported value of 9.0 could actually be between 8.7 and 9.3. Ref: http://www. ngsp.org/[place] Pdata.asp Ordering Provider: GILSON TOSCANO Report Released Date/Time: Mar 29, 2023 11:58 AM Reporting Lab: [facility] [place] [address] Performing Lab: [facility] [place] [address] [facility] CREATINI NE(INCLU PETAR EGFR) CREATININE [MASS/VOLU ME] IN SERUM OR PLASMA 1.8 0.7 - 1.2 11/22 H Specimen Type: PLASMA No comment entered. Ordering Provider: ISAAK GUZMAN Report Released Date/Time: Sep 27, 2022 10:47 AM Reporting Lab: [facility] [place] [address] Performing Lab: [facility] [place] [address] [facility] CREATINI NE(INCLU PETAR EGFR) GLOMERULAR FILTRATION RATE/1.73 SQ M.PREDICTE D [VOLUME RATE/AREA] IN SERUM, PLASMA OR BLOOD BY CREATININE -BASED FORMULA (CKD-EPI 2020) 36 60 11/22 L Specimen Type: PLASMA No comment entered. Ordering Provider: ISAAK GUZMAN Report Released Date/Time: Sep 27, 2022 10:47 AM Reporting Lab: [facility] [place] [address] Performing Lab: [facility] [place] [address] [facility] CBC LEUKOCYTES [#/VOLUME] IN BLOOD BY AUTOMATED COUNT 7.11 4.0 - 11.0 09/20 Specimen Type: BLOOD No comment entered. Ordering Provider: DEMETRIO MCKEON Report Released Date/Time: August 18, 2022 03:57 PM Reporting Lab: [facility] [place] [address] Performing Lab: [facility] [place] [address] [place] [facility] CBC ERYTHROCYT ES [#/VOLUME] IN BLOOD BY AUTOMATED COUNT 3.95 4.6 - 6.2 09/20 L Specimen Type: BLOOD No comment entered. Ordering Provider: DEMETRIO MCKEON Report Released Date/Time: August 18, 2022 03:57 PM Reporting Lab: [facility] [place] [address] Performing Lab: [facility] [place] [address] [place] [facility] CBC HEMOGLOBIN [MASS/VOLU ME] IN BLOOD 12.1 13.5 - 17.9 09/20 L Specimen Type: BLOOD No comment entered. Ordering Provider: DEMETRIO MCKEON Report Released Date/Time: August 18, 2022 03:57 PM Reporting Lab: [facility] [place] [address] Performing Lab: [facility] [place] [address] [place] [facility] CBC HEMATOCRIT [VOLUME FRACTION] OF BLOOD BY AUTOMATED COUNT 37.5 41 - 54 09/20 L Specimen Type: BLOOD No comment entered. Ordering Provider: DEMETRIO MCKEON Report Released Date/Time: August 18, 2022 03:57 PM Reporting Lab: [facility] [place] [address] Performing Lab: [facility] [place] [address] [place] [facility] CBC MCV [ENTITIC VOLUME] BY AUTOMATED COUNT 94.9 80 - 100 09/20 Specimen Type: BLOOD No comment entered. Ordering Provider: DEMETRIO MCKEON Report Released Date/Time: August 18, 2022 03:57 PM Reporting Lab: [facility] [place] [address] Performing Lab: [facility] [place] [address] [place] [facility] CBC MCH [ENTITIC MASS] BY AUTOMATED COUNT 30.6 27 - 33 09/20 Specimen Type: BLOOD No comment entered. Ordering Provider: DEMETRIO MCKEON Report Released Date/Time: August 18, 2022 03:57 PM Reporting Lab: [facility] [place] [address] Performing Lab: [facility] [place] [address] [place] [facility] CBC MCHC [MASS/VOLU ME] BY AUTOMATED COUNT 32.3 32.0 - 37.5 09/20 Specimen Type: BLOOD No comment entered. Ordering Provider: DEMETRIO MCKEON Report Released Date/Time: August 18, 2022 03:57 PM Reporting Lab: [facility] [place] [address] Performing Lab: [facility] [place] [address] [facility] CBC PLATELETS [#/VOLUME] IN BLOOD BY AUTOMATED COUNT 237 150 - 400 09/20 Specimen Type: BLOOD No comment entered. Ordering Provider: DEMETRIO MCKEON Report Released Date/Time: August 18, 2022 03:57 PM Reporting Lab: [facility] [place] [address] Performing Lab: [facility] [place] [address] [place] [facility] CBC PLATELET MEAN VOLUME [ENTITIC VOLUME] IN BLOOD BY AUTOMATED COUNT 9.4 7.4 - 10.4 09/20 Specimen Type: BLOOD No comment entered. Ordering Provider: DEMETRIO MCKEON Report Released Date/Time: August 18, 2022 03:57 PM Reporting Lab: [facility] [place] [address] Performing Lab: [facility] [place] [address] [place] [facility] CBC ERYTHROCYT E DISTRIBUTI ON WIDTH [RATIO] BY AUTOMATED COUNT 13.9 11.5 - 14.5 09/20 Specimen Type: BLOOD No comment entered. Ordering Provider: DEMETRIO MCKEON Report Released Date/Time: August 18, 2022 03:57 PM Reporting Lab: [facility] [place] [address] Performing Lab: [facility] [place] [address] [place] [facility] CREATINI NE(INCLU PETAR EGFR) CREATININE [MASS/VOLU ME] IN SERUM OR PLASMA 1.5 0.7 - 1.2 09/20 H Specimen Type: PLASMA No comment entered. Ordering Provider: DEMETRIO MCKEON Report Released Date/Time: August 18, 2022 03:57 PM Reporting Lab: [facility] [place] [address] Performing Lab: [facility] [place] [address] [place] [facility] CREATINI NE(INCLU PETAR EGFR) GLOMERULAR FILTRATION RATE/1.73 SQ M.PREDICTE D [VOLUME RATE/AREA] IN SERUM, PLASMA OR BLOOD BY CREATININE -BASED FORMULA (CKD-EPI 2020) 45 09/20 L Specimen Type: PLASMA No comment entered. Ordering Provider: DEMETRIO MCKEON Report Released Date/Time: August 18, 2022 03:57 PM Reporting Lab: [facility] [place] [address] Performing Lab: [facility] [place] [address] [place] [facility] AST/SGOT ASPARTATE AMINOTRANS FERASE [ENZYMATIC ACTIVITY/V OLUME] IN SERUM OR PLASMA 48 09/20 H Specimen Type: PLASMA No comment entered. Ordering Provider: DEMETRIO MCKEON Report Released Date/Time: August 18, 2022 03:57 PM Reporting Lab: [facility] [place] [address] Performing Lab: [facility] [place] [address] [place] [facility] ALT/SGPT ALANINE AMINOTRANS FERASE [ENZYMATIC ACTIVITY/V OLUME] IN SERUM OR PLASMA 24 09/20 Specimen Type: PLASMA No comment entered. Ordering Provider: DEMETRIO MCKEON Report Released Date/Time: August 18, 2022 03:57 PM Reporting Lab: [facility] [place] [address] Performing Lab: [facility] [place] [address] [place] [facility] URINALYS IS COLOR OF URINE LIGHT-YE LLOW 02/22 Specimen Type: URINE No comment entered. Ordering Provider: GILSON TOSCANO Report Released Date/Time: Feb 22, 2022 03:18 PM Reporting Lab: [facility] [place] [address] Performing Lab: [facility] [place] [address] [facility] URINALYS IS SPECIFIC GRAVITY OF URINE 1.025 1.003 - 1.035 02/22 Specimen Type: URINE No comment entered. Ordering Provider: GILSON TOSCANO Report Released Date/Time: Feb 22, 2022 03:18 PM Reporting Lab: [facility] [place] [address] Performing Lab: [facility] [place] [address] [facility] URINALYS IS BILIRUBIN. TOTAL [PRESENCE] IN URINE BY TEST STRIP NEGATIVE 02/22 Specimen Type: URINE No comment entered. Ordering Provider: GILSON TOSCANO Report Released Date/Time: Feb 22, 2022 03:18 PM Reporting Lab: [facility] [place] [address] Performing Lab: [facility] [place] [id number] [facility] URINALYS IS KETONES [MASS/VOLU ME] IN URINE BY TEST STRIP NEGATIVE 02/22 Specimen Type: URINE No comment entered. Ordering Provider: GILSON TOSCANO Report Released Date/Time: Feb 22, 2022 03:18 PM Reporting Lab: [facility] [place] [id number] Performing Lab: [facility] [place] [id number] [facility] URINALYS IS GLUCOSE [MASS/VOLU ME] IN URINE BY TEST STRIP NEGATIVE 02/22 Specimen Type: URINE No comment entered. Ordering Provider: GILSON TOSCANO Report Released Date/Time: Feb 22, 2022 03:18 PM Reporting Lab: [facility] [place] [address] Performing Lab: [facility] [place] [address] [facility] URINALYS IS PROTEIN [MASS/VOLU ME] IN URINE BY TEST STRIP 50 02/22 Specimen Type: URINE No comment entered. Ordering Provider: GILSON TOSCANO Report Released Date/Time: Feb 22, 2022 03:18 PM Reporting Lab: [facility] [place] [address] Performing Lab: [facility] [place] [address] [facility] URINALYS IS PH OF URINE BY TEST STRIP 6.5 5.0 - 8.0 11/23 /2022 Specimen Type: URINE No comment entered. Ordering Provider: GILSON TOSCANO Report Released Date/Time: Feb 22, 2022 03:18 PM Reporting Lab: [facility] [place] [address] Performing Lab: [facility] [place] [address] [facility] URINALYS IS LEUKOCYTES [#/AREA] IN URINE SEDIMENT BY MICROSCOPY HIGH POWER FIELD NONE SEEN 0 - 7 02/22 Specimen Type: URINE No comment entered. Ordering Provider: GILSON TOSCANO Report Released Date/Time: Feb 22, 2022 03:18 PM Reporting Lab: [facility] [place] [address] Performing Lab: [facility] [place] [address] [facility] URINALYS IS BACTERIA [PRESENCE] IN URINE SEDIMENT BY LIGHT MICROSCOPY NONE SEEN 02/22 Specimen Type: URINE No comment entered. Ordering Provider: GILSON TOSCANO Report Released Date/Time: Feb 22, 2022 03:18 PM Reporting Lab: [facility] [place] [address] Performing Lab: [facility] [place] [address] [facility] URINALYS IS ERYTHROCYT ES [#/AREA] IN URINE SEDIMENT BY MICROSCOPY HIGH POWER FIELD 2 0 - 3 02/22 Specimen Type: URINE No comment entered. Ordering Provider: GILSON TOSCANO Report Released Date/Time: Feb 22, 2022 03:18 PM Reporting Lab: [facility] [place] [address] Performing Lab: [facility] [place] [address] [facility] URINALYS IS APPEARANCE OF URINE CLEAR 02/22 Specimen Type: URINE No comment entered. Ordering Provider: GILSON TOSCANO Report Released Date/Time: Feb 22, 2022 03:18 PM Reporting Lab: [facility] [place] [address] Performing Lab: [facility] [place] [address] [facility] URINALYS IS EPITHELIAL CELLS.SQUA MOUS [#/AREA] IN URINE SEDIMENT BY MICROSCOPY HIGH POWER FIELD NONE SEEN 02/22 Specimen Type: URINE No comment entered. Ordering Provider: GILSON TOSCANO Report Released Date/Time: Feb 22, 2022 03:18 PM Reporting Lab: [facility] [place] [address] Performing Lab: [facility] [place] [address] [facility] URINALYS IS HEMOGLOBIN [PRESENCE] IN URINE BY TEST STRIP NEGATIVE 02/22 Specimen Type: URINE No comment entered. Ordering Provider: GILSON TOSCANO Report Released Date/Time: Feb 22, 2022 03:18 PM Reporting Lab: [facility] [place] [address] Performing Lab: [facility] [place] [address] [facility] URINALYS IS NITRITE [PRESENCE] IN URINE BY TEST STRIP NEGATIVE 02/22 Specimen Type: URINE No comment entered. Ordering Provider: GILSON TOSCANO Report Released Date/Time: Feb 22, 2022 03:18 PM Reporting Lab: [facility] [place] [address] Performing Lab: [facility] [place] [address] [facility] URINALYS IS LEUKOCYTE ESTERASE [PRESENCE] IN URINE BY TEST STRIP NEGATIVE 02/22 Specimen Type: URINE No comment entered. Ordering Provider: GILSON TOSCANO Report Released Date/Time: Feb 22, 2022 03:18 PM Reporting Lab: [facility] [place] [address] Performing Lab: [facility] [place] [address] [facility] TSH W/REFLEX TO FREE T4 THYROTROPI N [UNITS/VOL UME] IN SERUM OR PLASMA 2.64 0.35 - 4.94 02/22 Specimen Type: PLASMA No comment entered. Ordering Provider: GILSON TOSCANO Report Released Date/Time: Feb 22, 2022 03:18 PM Reporting Lab: [facility] [place] [address] Performing Lab: [facility] [place] [address] [facility] Vital Signs Combined list of inpatient and outpatient Vital Signs from Department of Defense and Veterans Affairs, ranging from 12 months to all on record, depending upon the facility. Vital Sign Value Date Comments Source SYSTOLIC BLOOD PRESSURE 108 03/29/2023 11:30:00 [facility] DIASTOLIC BLOOD PRESSURE 62 03/29/2023 11:30:00 [facility] PULSE OXIMETRY 98% 03/29/2023 11:30:00 L EDNAKatherine Tanna [facility] WEIGHT 203.6 03/29/2023 11:30:00 [facility] BMI 29kg/m2 03/29/2023 11:30:00 [facility] PAIN 0 03/29/2023 11:30:00 [facility] HEIGHT 69.75 03/29/2023 11:30:00 [facility] TEMPERATURE 96.7 03/29/2023 11:30:00 [facility] PULSE 95 03/29/2023 11:30:00 [facility] RESPIRATION 20 03/29/2023 11:30:00 [facility] Encounters Combined list of: 1) [facility] Encounters from the Department of [facility] facilities going back up to 280 months. Location Location Details Encounter Type Encounter Number Reason For Visit Attending Provider ADM Date DC Date Status Disposition Source [facility] Outpatient Encounter [id number] Diagnos is: ICD-10- CM I10 Essenti al (primar y) hyperte nsion<b r/> NSUBUGA,CH RISTINE N 02/22 [facility] [place] [facility] Outpatient Encounter [id number] 02[facility]22 [facility] [place] [facility] Outpatient Encounter [id number] 02/22 [place] [facility] [place] [facility] Out[place] Encounter [id number] 04/06 [place] [facility] [place] [facility] Outpatient Encounter [id number] 06/02 [place] [facility] Outpatient Encounter [id number] 07/12 [facility] [place] [facility] Outpatient Encounter [id number] 07/12 [place] [facility] [place] [facility] Out[place] Encounter [id number] 08/11 [place] [place] [facility] Out[place] Encounter [id number] 08/14 [place] [facility] [place] [facility] Out[place] Encounter [id number] 08/15 [place] [facility] [place] [facility] Out[place] Encounter [id number] 08/16 [place] [facility] [place] [facility] QNHP OL DIG ASSMT&MGMT 21+ [id number] Diagnos is: ICD-10- 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
JAC MCKEON 08[facility]18 [facility] PRO PHONE CALL 11-20 MIN [id number] Diagnos is: ICD-10- CM Z51.81 Encount er for therape utic drug level monitor ing<br/ > JOSH GUZMAN 09/27 [facility] TTE W/DOPPLER COMPLETE [id number] Diagnos is: ICD-10- CM I48.91 Unspeci fied atrial fibrill ation<b r/> DENIZ HUGHES 10/11 [place] [facility] [place] [facility] Outpatient Encounter [id number] ANÍBAL HALL 10/23 [place] [facility] [place] [facility] HC PRO PHONE CALL 11-20 MIN [id number] Diagnos is: ICD-10- CM Z79.01 [facility] (curren t) use of anticoa gulants
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
Lizzie DE LA CRUZ 05/07 [facility] Social History Combined list of available smoking, tobacco, and other social history from Department of Defense and Veterans Affairs facilities. Social History Type Response Date Comment Sourc e Tobacco smoking status NHIS [place]-[facility] FORMER USER 03/29/2023 [facility] History of tobacco use [place]-TOBACCO QUIT 1 5 YRS OR MORE 03/29/2023 [facility] History of tobacco use [place]-TO[place]ACCO FORMER USER 02/22/2022 [facility]
--- OUTSIDE RECORDS SUMMARY | 2023-07-10 06:47 | XMS_ITS | Encounter Summary ---
Author Name [facility] Organization [facility] Address [address] [place] [address] Support Name Relationship Address Phone DANIEL CUEVAS Next of Kin [address] [place] [address] DANIEL CUEVAS Emergency Contact [phone] [address] [address] Insurance Providers: All historical and [...] ADVANTAGE DEBBIE REED IDU Apr 02, 2016 [id number] [phone] SARA CUEVAS PATIENT Selected Encounter This section includes the information on record at [place] for the Encounter. Date/Time Encounter Type Encounter Description Reason Pro vider Source IHE Encounter Template Text not used by [place]
--- OUTSIDE RECORDS SUMMARY | 2023-07-10 06:47 | XMS_ITS | Encounter Summary ---
Author Name [facility] Organization [facility] Address [address] [place] [address] Support Name Relationship Address Phone IFEOMA CUEVASAARON Asher Next of Kin [id number] [place] [address] IFEOMA CUEVASAARON Asher Emergency Contact [phone] [address] Insurance Providers: All historical and [...] Mathur's Name Patient's Relationship to Policy Mathur BCDONNIE VENTURA (WNR) MEDICARE ADVANTAGE ALEXIKIEL Licona LISA REED IDU Apr 02, 2016 [id number] [phone] SARA CUEVAS PATIENT Selected Encounter This section includes the information on record at [place] for the Encounter. Date/Time Encounter Type Encounter Description Reason Provider Source Mar 29, 2023 11:30 AM OFFICE O/P EST HI 40-54 MIN PRIMARY CARE/MEDICINE ICD-10-CM I48.91 Unspecified atrial fibrillation MARY TOSCANO IHE Encounter Template Text not used by [facility] Assessments - Encounter Diagnoses This section includes the primary and secondary diagnoses documented for the Encounter. Date/Time Primary/Secondary Diagnosis Diagnosis Name Provider Source Mar 29, 2023 12:03 PM PRIMARY Unspecified atrial fibrillation [facility] Mar 29, 2023 12:03 PM SECONDARY Encounter for immunization [facility] Mar 29, 2023 12:03 PM SECONDARY Essential (primary) hypertension RUKHSANA TOSCANOLE C [facility] Mar 29, 2023 12:03 PM SECONDARY senior living (current) use of anticoagulants RUKHSANA TOSCANO GANESH Cisse [facility] Mar 29, 2023 12:03 PM SECONDARY Other specified hearing loss, bilateral RUKHSANA TOSCANO GANESH [facility] Mar 29, 2023 12:03 PM SECONDARY Unil inguinal hernia, w/o obst or gangr, not spcf as recur RUKHSANA TOSCANO TAO [facility] Lab Results: +/- 30 days of the encounter This section includes the Chemistry and Hematology Lab Results on record with [place] for the patient. Radiology Reports and Pathology Reports are provided separately, in subsequent sections. Lab Results This section contains the Chemistry/Hematology Results that were resulted 30 days before or 30 daysafter the date of the Encounter. Date/Time Source Result Type Result - Unit Interpretation Reference Range Comment Mar 29, 2023 12:26 PM GANESH [facility] COMPREHENSIVE METABOLIC PANEL+MG Specimen Type: PLASMA No comment entered. Ordering Provider: RUKHSANA TOSCANO Report Released Date/Time: Mar 29, 2023 11:34 AM Reporting Lab: [facility] [id number] Performing Lab: [facility] [id number] CREATININE 1.4 H 0.7-1.2 UREA NITROGEN 31 H 8-26 GLUCOSE 94 70-100 SODIUM 138 136-145 POTASSIUM 4.3 3.5-5.1 CHLORIDE 105 98-107 CO2 23 22-29 CALCIUM 9.3 8.4-10.2 PROTEIN,TOTAL 7.1 6.0-8.3 ALBUMIN 3.9 3.5-5.2 BILIRUBIN, TOTAL 0.4 0.2-1.2 MAGNESIUM 2.1 1.6-2.6 ANION GAP 10 5-15 ALKALINE PHOSPHATASE 99 40-150 ALT/SGPT 16 <55 AST/SGOT 42 H <34 .CREAT EGFR(CKD-EPI) 48 L >60 Mar 29, 2023 12:26 PM GANESH [facility] CBC Specimen Type: BLOOD No comment entered. Ordering Provider: RUKHSANA TOSCANO Report Released Date/Time: Mar 29, 2023 11:34 AM Reporting Lab: [facility] [id number] Performing Lab: [facility] [id number] WBC 8.11 4.0-11.0 RBC 4.12 L 4.6-6.2 HGB 12.3 L 13.5-17.9 HCT 38.6 L 41-54 MCV 93.7 80-100 MCH 29.9 27-33 MCHC 31.9 L 32.0-37.5 PLT 216 150-400 MPV 10.1 7.4-10.4 RDW 14.6 H 11.5-14.5 Mar 29, 2023 12:26 PM [facility] HEMOGLOBIN A1C Specimen Type: BLOOD Comment: Values obtained from A1C measurements can vary. For typical A1C assays, a reported value of 7.0 could actually be between 6.7 and 7.3 if measured by a reference method. A reported value of 9.0 could actually be between 8.7 and 9.3. Ref: http://www.ngs p.org/CAPdata. asp Ordering Provider: RUKHSANA TOSCANO Report Released Date/Time: Mar 29, 2023 11:58 AM Reporting Lab: [facility] [id number] Performing Lab: [facility] [id number] HEMOGLOBIN A1C 6.1 H 4.0-6.0 Vital Signs: All taken on the encounter date This section contains inpatient and outpatient Vital Signs collected on the date of the Encounter. Date/Time Temperature Pulse Blood Pressure Respiratory Rate SP02 Pain Height Weight Body Mass Index Source Mar 29, 2023 11:30 AM 96.7 F 95 /min 108/62 mm[Hg] 20 /min 98 % 0 69.75 in 203.6 lb 29 [facility] Immunizations: All administered on the encounter date This section contains immunizations associated to the Encounter. Immunization Series Date Issued Reaction Comments INFLUENZA, HIGH-DOSE, QUADRIVALENT Mar 29, 2023 Social History: Smoking Status (Most current) and Tobacco Use (All prior to encounter date) This section includes the most current, and the historical, smoking and tobacco- related health factors from the [place] facility where the Encounter took place. Current Smoking Status This section includes the most current smoking, or tobacco-related health factor, from the [place] facility where the Encounter took place. Date/Time Current Smoking Status Comment Dora vora Mar 29, 2023 11:30 AM VA-TOBACCO FORMER USER G[facility]ESH C [facility] ROJAS Tobacco Use History This section includes a history of the smoking, or tobacco-related health factors, that were collected on or before the date of the Encounter. The data comes from the [place] facility where the Encounter took place. Date/Time Smoking Status/Tobacco Use Comment F acility Mar 29, 2023 11:30 AM VA-TOBACCO QUIT 15 YRS OR MORE G[facility]ESH [facility] Feb 22, 2022 02:30 PM VA-TOBACCO FORMER USER [facility] Feb 22, 2022 02:30 PM VA-TOBACCO QUIT 15 YRS OR MORE GANESH Tanna [facility] Encounter Notes: All associated encounter notes This section contains the clinical notes associated to the Encounter. Date/Time Encounter Note(s) Provider Source Mar 29, 2023 12:06 PM ADMINISTRATIVE NOT E: LOCAL TITLE: AFTER VISIT SUMMARY NOTE STANDARD TITLE: ADMINISTRATIVE NOTE DICT DATE: MAR 29, 2023@12:06:30 ENTRY DATE: MAR 29, 2023@12:06:30 DICTATED BY: KINGSTON TOSCANO EXP COSIGNER: URGENCY: STATUS: COMPLETED The patient was provided with a copy of an after-visit summary at the conclusion of the visit. A copy of the after-visit summary provided to the patient is available in [employer]. SCANNED DOCUMENT SIGNATURE NOT REQUIRED Electronically Filed: 03/29/2023 by: KINGSTON TOSCANO CNP [facility] KINGSTON TOSCANO [facility] Mar 29, 2023 12:00 PM PRIMARY CARE NURSI NG NOTE: LOCAL TITLE: [facility] NURSING PROGRESS NOTE STANDARD TITLE: PRIMARY CARE NURSING NOTE DATE OF NOTE: MAR 29, 2023@12:00 ENTRY DATE: MAR 29, 2023@12:01 AUTHOR: JACQUES SALAZAR EXP COSIGNER: URGENCY: STATUS: COMPLETED TYPE OF VISIT: Appointment Check In Type of appointment: In-person appointment REASON FOR VISIT: Rtc 12 months ALLERGIES: IBUPROFEN (Feb 22, 2022) VITAL SIGNS: Blood Pressure: 108/62 (03/29/2023 11:30) Pulse: 95 (03/29/2023 11:30) Respiration: 20 (03/29/2023 11:30) Temperature: 96.7 F [35.9 C] (03/29/2023 11:30) Weight: 203.6 lb [92.35 kg] (03/29/2023 11:30) Height: 69.75 in [177.2 cm] (03/29/2023 11:30) BMI: 29.5 O2 Sat: 98% (03/29/2023 11:30) Pain: 0 (03/29/2023 11:30) PAIN SCREEN: Patient is not having significant pain that they wish to discuss with their provider today. Toxic Exposure Screening: The Mayer/caregiver was asked if they believe the Mayer experienced any toxic exposure(s), such as Airborne Hazards and [place], [place] War related exposures, Agent [place], Radiation, contaminated water at [place] or other such exposures, while serving in the [employer]. Mayer has no concerns about toxic exposure(s) while serving in the [employer]. The Mayer/caregiver was informed that we will continue to ask this screening question every 5 years. They can contact their provider/healthcare team if they have concerns about exposures and would like to be screened sooner. Printed information was offered and provided if desired. COVID-19 Immunization: Refused Pfizer Monovalent COVID-19 vaccine Immunization: COVID-19 (PFIZER), MRNA, LNP-S, PF, ARASH-SUCROSE, 30 MCG/0.3 ML (AGES 12+ YEARS) Refusal Reason: PATIENT DECISION Patient refuses all immunization(s) in the COVID-19 group Date Documented: 03/29/23 12:01 Suicide Screen: C-SSRS Screening [place] Suicide Severity Rating Scale (C-SSRS) screener 1. Over the past month, have you wished you were or wished you could go to sleep and not wake up? No 2. Over the past month, have you had any actual thoughts of killing yourself? No 3. Over the past month, have you been thinking about how you might do this? Response not required due to responses to other questions. 4. Over the past month, have you had these thoughts and had some intention of acting on them? Response not required due to responses to other questions. 5. Over the past month, have you started to work out or worked out the details of how to kill yourself? Response not required due to responses to other questions. 6. If yes, at any time in the past month did you intend to carry out this plan? Response not required due to responses to other questions. 7. In your lifetime, have you ever done anything, started to do anything, or prepared to do anything to end your life (for example, collected pills, obtained a gun, gave away valuables, went to the roof but didn't jump)? No 8. If YES, was this within the past 3 months? Response not required due to responses to other questions. Influenza Immunization: The patient was given the influenza VIS which lists the benefits and side effects of the vaccine and which reviews the risks of not receiving the flu vaccine. The VIS was reviewed with the patient and they were given an opportunity to ask questions. The patient was provided education on how to decrease the risk of influenza infection including social distancing and use of good hand hygiene. The patient denied any prior severe reaction to the flu vaccine or its components. The patient gave verbal consent to receive the vaccine. Influenza, High Dose, Quadrivalent (Fluzone - syringe) Administered: INFLUENZA, HIGH-DOSE, QUADRIVALENT Date Administered: Mar 29, 2023 11:30 Home Day Care Provider: [employer] PASTEUR Lot: [id number] Exp Date: Sep 30, 2023 [facility]: [phone] Admin Route/Site: INTRAMUSCULAR/RIGHT DELTOID Dosage: 0.7mL Vaccine Information Statement(s): INFLUENZA(FLU) VACC(INACTIVATED OR RECOMBINANT)VIS Nov 05, 2020 ([place]) Order By: Policy Administered By: Jacques Salazar Depression Screening: Perform PHQ-2 A PHQ-2 screen was performed. The score was 0 which is a negative screen for depression. Over the past two weeks, how often have you been bothered by the following problems? 1. Little interest or pleasure in doing things Not at all 2. Feeling down, depressed, or hopeless Not at all Alcohol Use Screen (AUDIT-C): Alcohol Screen: SCREEN FOR ALCOHOL (AUDIT-C) An alcohol screening test (AUDIT-C) was negative (score=2). 1. How often did you have a drink containing alcohol in the past year? Two to four times a month 2. How many drinks containing alcohol did you have on a typical day when you were drinking in the past year? One or two drinks 3. How often did you have six or more drinks on one occasion in the past year? Never Nursing Annual Screening: Fall History Screen During the past 12 months, have you had any falls? Patient does not report any falls in the past 12 months. MEDICATIONS: Patient does not have an active prescription for one of the following medications: Antihypertensives, Antidepressants, Antipsychotics, Diuretics, or Opioid Analgesics (Contolled Substance medications used for pain). FALL RISK ADVICE: Fall Risk Advice provided. Handout entitled Fall Prevention At Home reviewed and given to patient and/or significant other. Script Talk Screen Are you able to read your prescription bottles with your glasses, magnifiers or other aids? Yes or patient not taking any prescriptions. Skin Screen Patient reports any current pressure ulcers, a history of pressure ulcers, or a wound from a medical recruiter or Patient is bed-confined or a wheelchair-user or Patient requires assistance to transfer/change position No, Skin Screen is Negative Home Abuse/Violence Screen Is your home free of abuse and violence? Yes MOVE! Program Screen Body Mass Index (BMI)= 29.5 [place]: No data available [place] Hgb A1C: No data available [place] Hgb A1C: No data available Point of Care Hgb A1C: POC HGB A1C____ Outpatient Nutrition Screen Body Mass Index (BMI)= 29.5 [place]: No data available [place] Hgb A1C: No data available [place] Hgb A1C: No data available Point of Care Hgb A1C: POC HGB A1C____ Is patient's BMI less than 18.5? No Does patient have swallowing, coughing, or chewing problems affecting oral intake? No Has patient experienced unplanned weight loss or gain greater than 10 pounds over the last 2 months? No Is patient's Hgb A1C (Glycosylated Hemoglobin) greater than 9.5? Information not available Is patient receiving Total Parenteral Nutrition (TPN) or Tube Feedings? No Patient Health Education Screen BARRIERS/SPECIAL NEEDS: No barriers identified PREFERRED STYLE OF LEARNING: No preference stated Client Assistive Service (PARISA) Screen Does the patient require assistance with outpatient visit? No Tobacco Use Screening: The patient is a former tobacco user. The patient quit fifteen or more years ago. Herpes Zoster (Shingles) Vaccine: The patient declines to receive the recommended dose of zoster (shingles) vaccine. Immunization: ZOSTER RECOMBINANT Refusal Reason: PATIENT DECISION Patient refuses all immunization(s) in the ZOSTER group Date Documented: 03/29/23 12:04 Pneumococcal PPSV23 (Pneumovax): The patient declines to receive the recommended dose of PPSV23 vaccine. Immunization: PNEUMOCOCCAL POLYSACCHARIDE PPV23 Refusal Reason: PATIENT DECISION Patient refuses all immunization(s) in the PneumoPPV group Date Documented: 03/29/23 12:04 Homelessness/Food Insecurity Screen: In the past 2 months, have you been living in stable housing that you own, rent, or stay in as part of a household? Yes - Living in stable housing. Are you worried or concerned that in the next 2 months you may NOT have stable housing that you own, rent, or stay in as part of a household? No - Not worried about housing near future The reports the following: Within the past 12 months, you worried whether your food would run out before you got money to buy more. Never true Within the past 12 months, the food you bought just didn't last and you didn't have money to get more. Never true Food Insecurity Resources /es/ Jacques Salazar LPN Signed: 03/29/2023 12:04 [facility] Mar 29, 2023 11:30 AM PRIMARY CARE NOTE: LOCAL TITLE: [facility]OC PROGRESS NOTE-[facility] STANDARD TITLE: PRIMARY CARE NOTE DATE OF NOTE: MAR 29, 2023@11:30 ENTRY DATE: MAR 29, 2023@11:30:13 AUTHOR: KINGSTON TOSCANO COSIGNER: URGENCY: STATUS: COMPLETED Today's Nurse check-in note reviewed. Chief complaint: Preventive care Co-managed by: PCP in [place]; Dr Dru Cuevas History of Present Illness: The patient is a 88 year old MALE, here for a comprehensive wellness visit He is a who lives with his son. Hx significant for CKD, states he stopped taking Eliquis due to itching(JLV shows other symptoms including med being expensive). Vet states his non VA PCP recommended aspirin 325mg which vet is now taking (pending records). PCP (03/15/2023- non [facility] ) wondering if Xarelto would be a substitute for Eliquis Eliquis was started July 12 ED visit after diagnosis for atrial fibrillation. He was discharged home with Eliquis and Cardizem. He reported feeling dizzy with Eliquis next day, so he cut the Eliquis into daily (JLV notes). States he was seen at the [facility] for an eye exam but has failed to get hold of eye clinic [facility] the [facility] [place] [facility] ROS is negative, pertinent positive are listed above in HPI. Past medical history (list previous surgeries/illnesses/dates) : Hypertension ([facility] [id number]) Joint pain ([facility] [id number]) Bilateral hearing loss ([facility] [id number]) Allergies: IBUPROFEN (Feb 22, 2022) Medication Reconciliation: Education Evaluations *Was medication education provided for NEW medications or CHANGES to medications? (including medication name, dose, route, reason for use, and potential side effects). No new medications or medication changes during this encounter. ======= MEDICATION RECONCILIATION ======= Review Done: The medication list shown below was verified for accuracy and it includes all pending medications/active medications/all medications or discontinued within the last 90 days/all remote medications and non-VA medications. If a given category (i.e. remote meds) is not shown, that means that a patient doesn't have a medication(s) in that category. Allergies listed below were also reviewed/updated for accuracy. Allergies/ADR from [facility] may not display in CPRS. Use JLV MRT5 - Allergies/ADRs FACILITY ALLERGY/ADR -------- No Remote Allergy/ADR Data available for this patient [facility] IBUPROFEN Active and Recently Outpatient Medications (including Supplies): Issue Date Status Last Fill Active Outpatient Medications Refills Expiration 1) AMLODIPINE BESYLATE 5MG TAB Qty: 90 for ACTIVE Issu:03-27-23 90 days Sig: TAKE ONE TABLET BY MOUTH Refills: 3 Last:03-27-23 EVERY DAY FOR BLOOD PRESSURE Expr:03-27-24 2) APIXABAN 2.5MG TAB Qty: 180 for 90 days not taking Issu:11-23-22 Sig: TAKE ONE TABLET BY MOUTH EVERY 12 Refills: 3 Last:11-23-22 HOURS Expr:11-24-23 3) DILTIAZEM (EQV-TIAZAC) 120MG 24HR CAP ACTIVE Issu:08-18-22 Qty: 90 for 90 days Sig: TAKE ONE Refills: 1 Last:03-27-23 CAPSULE BY MOUTH EVERY DAY FOR HEART Expr:08-19-23 RHYTHM 4) MULTIVIT/OPHTH AREDS2/LUTE/ZEAX CAP/TAB ACTIVE Issu:06-06-22 Qty: 240 for 90 days Sig: TAKE 1 Refills: 2 Last:12-27-22 TABLET BY MOUTH TWICE A DAY Expr:06-07-23 Issue Date Status Last Fill Inactive Outpatient Medications Refills Expiration 1) AMLODIPINE BESYLATE 5MG TAB Qty: 90 for DISCONTINUED Issu:02-22-22 90 days Sig: TAKE ONE TABLET BY MOUTH Refills: 0 Last:12-23-22 EVERY DAY FOR BLOOD PRESSURE Expr:02-23-23 2) APIXABAN 5MG TAB Qty: 180 for 90 days DISCONTINUED Issu:08-18-22 Sig: TAKE ONE TABLET BY MOUTH EVERY 12 (EDIT) Last:09-01-22 HOURS TO PREVENT STROKES Refills: 3 Expr:08-19-23 Start Date Active Non-VA Medications Refills Expiration 1) Non-VA CYANOCOBALAMIN 100MCG TAB Sig: ACTIVE 100MCG MOUTH EVERY DAY 2) Non-VA MULTIVITAMIN CAP/TAB Si ACTIVE TABLET MOUTH EVERY DAY 3) Non-VA PYRIDOXINE HCL 50MG TAB Sig: ACTIVE 50MG MOUTH EVERY DAY 4) Non-VA SAW PALMETTO Si CAPSULE ACTIVE MOUTH EVERY DAY 10 Total Medications Physical Exam: Vitals: 03/29/23 11:30 T: 96.7 F (35.9 C) P: 95 R: 20 B/P: 108/62 Hit: 69.75 in (177.17 cm) Wt.: 203.60 lb. (92.35 kg) Body Mass Index: 29* Pulse Oximetry: 98% Pain: 0 - No pain Constitutional: Alert, in no distress & healthy appearing Eyes: The sclera & conjunctiva were normal Ears: Tympanic membranes normal bilaterally Neck/Thyroid: Thyroid not enlarged, posterior and cervical nodes normal, no mass was observed Heart: Heart rate & rhythm irregular Pulmonary: No respiratory distress, clear bilateral breath sounds Abdominal: Normal bowel sounds Musculoskeletal: Gait and station normal Neurological: Alert and oriented x3 Assessment/Plan: 1. Encounter for health maintenance # Chart review- JLV 2. Atrial fibrillation: 3. Hypertension: 4. CKD: States he stopped taking Eliquis due to itching(JLV shows other symptoms including med being expensive). Vet states his non VA PCP recommended aspirin 325mg which vet is now taking (pending records). PCP (03/15/2023- non [facility] ) wondering if Xarelto would be a substitute for Eliquis. (Vet seeking for [place] cardiology care) Eliquis was started July 12 ED visit after diagnosis for atrial fibrillation. He was discharged home with Eliquis and Cardizem. He reported feeling dizzy with Eliquis next day, so he cut the Eliquis into daily (JLV notes). BP well controlled, current regimen is amlodipine & Diltiazem - Refer to [facility] cardiology thea to eval for possible Xarelto as alternative suggested by Dr Christiano Billingsley (PCP) 5. Hearing loss/tinnitus: - Uses hearing aids 6. Arthritis: Tolerable 7. Vision change: States he was seen at the [facility] for an eye exam but has failed to get hold of eye clinic at the [facility] for new glasses - Recommend vet to call [facility], have the staff contact [facility] about his eye glasses - [facility]OC RN to pls F/U in 1 week to reval if vet has received glasses/ prob resolved 8. Hearing loss: bilateral - ongoing Active problems are stable unless otherwise noted At this visit I have reviewed the medication list, updated, and discussed relevant medications with the . verbalizes understanding and agrees with the treatment plan. Denies further questions. RTC with PCP in 1 year /cheko/ KINGSTON TOSCANO CNP NP [facility] Signed: 03/29/2023 15:53 KINGSTON TOSCANO
--- OUTSIDE RECORDS SUMMARY | 2023-07-10 06:47 | XMS_ITS | Encounter Summary ---
Author Name Department of [facility] Organization Department of [facility] Address [address] [place] [address] Support Name Relationship Address Phone FAITHIFEOMAAARON Asher Next of Kin [id number] [place] [address] DANIEL CUEVAS [facility] [address] [place] [id number] Insurance Providers: All historical and current [...] Mathur's Name Patient's Relationship to Policy Mathur [facility] (WNR) MEDICARE ADVANTAGE DEBBIE REED IDU Apr 02, 2016 [id number] [phone] SARA CUEVAS PATIENT Selected Encounter This section includes the information on record at [place] for the Encounter. Date/Time Encounter Type Encounter Description Reason Provider Source Mar 30, 2023 02:15 PM QNHP OL DIG ASSMT&MGMT 21+ CLINICAL PHARMACY ICD-10-CM Z79.01 half-way (current) use of anticoagulants THERESA LAMBERT [facility] Encounter Template Text not used by [place] Assessments - Encounter Diagnoses This section includes the primary and secondary diagnoses documented for the Encounter. Date/Time Primary/Secondary Diagnosis Diagnosis Name Provider Source Mar 30, 2023 02:30 PM PRIMARY half-way (current) use of anticoagulants THERESA LAMBERT [facility] Mar 30, 2023 02:30 PM SECONDARY Unspecified atrial fibrillation THERESA LAMBERT [facility] Lab Results: +/- 30 days of the encounter This section includes the Chemistry and Hematology Lab Results on record with [place] for the patient. Radiology Reports and Pathology [...] Mar 29, 2023 11:34 AM Reporting Lab: [facility] [id number] Performing Lab: [facility] [id number] CREATININE 1.4 H 0.7-1.2 UREA NITROGEN 31 [...] Mar 29, 2023 11:34 AM Reporting Lab: [facility] [id number] Performing Lab: [facility] [id number] WBC 8.11 4.0-11.0 RBC 4.12 L 4.6-6.2 HGB 12.3 L 13.5-17.9 HCT 38.6 L 41-54 MCV 93.7 80-100 MCH 29.9 27-33 MCHC 31.9 L 32.0-37.5 PLT 216 150-400 MPV 10.1 7.4-10.4 RDW 14.6 H 11.5-14.5 Mar 29, 2023 12:26 PM GANESH LUGO HEMOGLOBIN A1C Specimen Type: BLOOD Comment: Values [...] Mar 29, 2023 11:58 AM Reporting Lab: [facility] [id number] Performing Lab: [facility] [id number] HEMOGLOBIN A1C 6.1 H 4.0-6.0 Encounter Notes: All associated encounter notes This section contains the clinical notes associated to the Encounter. Date/Time Encounter Note(s) Provider Source Mar 30, 2023 02:15 PM MEDICATION MGT CON SULT: LOCAL TITLE: ANTICOAGULATION CLINIC CONSULT STANDARD TITLE: MEDICATION MGT CONSULT DATE OF NOTE: MAR 30, 2023@14:15 ENTRY DATE: MAR 30, 2023@14:16:05 AUTHOR: DANNA LAMBERT EXP COSIGNER: URGENCY: STATUS: COMPLETED DOAC INITIATION - Anticoagulant: Apixaban 2.5mg Q12H switching to Rivaroxaban Indication(s): Afib - Relevant PMH: - CKD3 - Prior major bleeds: o Prone to epistaxis (R nostril only), uses Vaseline PRN - Prior anticoagulants: o Apixaban 2.5mg q12h (2018, perhaps DVT ppx post-ROBSON/fall); 07/2022-03/2023 (unclear why LMD recommended change, pcp notes indicate itching, do not have local records to review) - Start date: switched to [place] 03/2023 - Anticipated duration: Indefinite - CHADS2-VASC = age +2, HTN = 3: low risk - HAS-BLED = age = 1: moderate risk Care Coordination: - [facility] [place] [facility] - Son (Chad) assists with medical care. His cell number is listed as home phone ([phone]). SUBJECTIVE/OBJECTIVE Obtained from chart review & pt's son Chad. - Patient has been on apixaban since 07/2022. Received consult requesting possible change to Rivaroxaban. LMD at [facility] recommended switch. Son is not clear on details and records are not available in [facility] for review. Dashboard flags: dosing issue, currently not meeting 2 of 3 criteria for low dose apixaban in afib. Most recent SCr was <1.5. IBUPROFEN (Feb 22, 2022) Active and Recently Outpatient Medications (excluding Supplies): Active Outpatient Medications Status 1) AMLODIPINE BESYLATE 5MG TAB TAKE ONE TABLET BY MOUTH ACTIVE EVERY DAY FOR BLOOD PRESSURE 2) APIXABAN 2.5MG TAB TAKE ONE TABLET BY MOUTH EVERY 12 ACTIVE HOURS 3) DILTIAZEM (EQV-TIAZAC) 120MG 24HR CAP TAKE ONE ACTIVE CAPSULE BY MOUTH EVERY DAY FOR HEART RHYTHM 4) MULTIVIT/OPHTH AREDS2/LUTE/ZEAX CAP/TAB TAKE 1 TABLET ACTIVE BY MOUTH TWICE A DAY Active Non-VA Medications Status 1) Non-VA CALCIUM 250MG/VITAMIN D 125 UNT TAB 1 TABLET ACTIVE MOUTH EVERY DAY 2) Non-VA CYANOCOBALAMIN 500MCG TAB 500MCG MOUTH EVERY ACTIVE DAY 3) Non-VA MULTIVITAMIN CAP/TAB 1 TABLET MOUTH EVERY DAY ACTIVE 4) Non-VA PYRIDOXINE HCL 50MG TAB 100MG MOUTH EVERY DAY ACTIVE 5) Non-VA SAW PALMETTO 1 CAPSULE MOUTH EVERY DAY ACTIVE 9 Total Medications Labs ---- Age: 88 Weight: 203.6 lb [92.35 kg] (03/29/2023 11:30) Height: 69.75 in [177.2 cm] (03/29/2023 11:30) BMI: 29.5 CREATININE 1.4 H PLASMA (03/29/23 12:26) 1.8 [...] 12:26 PLASMA ALT/SGPT 16 U/L Ref: <=55 ASSESSMENT/PLAN - Possibly not tolerating apixaban (itching?). Not getting clear history from son and no local records in [facility] to review but apparently LMD requested change from apixaban to rivaroxaban. Pt meets criteria for rivaroxaban. - Does meet renal criteria (CrCl 30-50ml/min) for rivaroxaban dose reduction in A. fib. - New start baseline labs within the past ~30 days available & acceptable. - Approve DOAC use: Rivaroxaban 15mg qday w/meal - will take with breakfast per son - Education attempt(s) below. Will mail DOAC/Rx education materials. - Appropriate review planned: periodic, initial - Lab monitoring frequency defined by dashboard or as clinically indicated. - Monitor dashboard for labs, drug interactions, and compliance. Time spent: 21 minutes Patient Education of Treatment Plan: Indicates readiness to learn, verbalizes understanding, agreement and satisfaction with the treatment plan. Denies further questions. Anticoagulation Educational Assessment Part One Barriers/Special Needs No barriers identified Part Two Readiness to learn No barriers identified PARTICIPANTS: Family/significant other TEACHING STRATEGY: Written/print materials, Verbal Rivaroxaban Content Reviewed: o Recognize medication by names (rivaroxaban (Xarelto)) & proper tablet identification (on prescription bottle) o Indication, expected duration for therapy o Daily dosage, importance of medication adherence, management of missed/extra doses o Monitoring requirements, importance of compliance with follow-up/lab monitoring requirements o Risks and benefits of [...] anticoagulation clinic and instructions for how to continuous pickling line pickler helper/obtain supply of medication. PATIENT/FAMILY RESPONSE (OUTCOME): Verbalizes critical information and understanding about the topic FOLLOW-UP RECOMMENDED: None needed Time spent on education: 15minutes /es/ Danna Lambert, Pharm.D. Clinical Inclusion Specialist Signed: 03/30/2023 14:30 DANNA LAMBERT [facility]
--- OUTSIDE RECORDS SUMMARY | 2023-07-10 06:47 | XMS_ITS | Clinical Summary ---
Author Name Unknown Organization [facility] Address [address] [place] [address] Care Team Providers Care Youth Agent Name Role Phone Elsewhere, Pcp Primary Care Provider Unavailabl e Source Comments Patient records contain information from all sites at [facility]. For routine questions regarding patient records, call [phone] during business hours, M-F 8:00 AM - 5:00 PM Central Time. Record requests for emergency care only can be directed to [phone] at any time.[facility] Allergies Active Allergy Reactions Criticality Noted Date [...] capsul every other day 0 Active vitamins A,C,Y-bcks-qsktsl (PRESERVISION AREDS) 7,160 Units-113 mg-100 Units per [...] high dose (65 years or older) (PF) Family History Medical History Relation Name Comments Heart attack Mother Anesthesia problems Neg Hx Bleeding Disorder Neg Hx Blood clot Neg Hx Relation Name Status Comments Mother Social History Tobacco Use Types Packs/Day Years [...] 08/10/2022 1:56 PM CDT Plan of Treatment Health Maintenance Due Date Last Done Comments Zoster Vaccines (1 of 2) 1985 COVID-19 Vaccine ( season) 2022 03/18/2021, 06/03/2020, 06/03/2020, Additional history exists Depression Screening (Annual PHQ-2) 04/02/2023 Fall Risk Screen (Annual) 04/02/2023 Pneumococcal vaccine (65+ years) (2 of 2 - PPSV23 or PCV20) 08/11/2023 01/12/2014 Postponed from 01/12/2015 (Patient Refused) Creatinine Level (Kidney Function Test) 08/16/2023 08/15/2022, 08/10/2022, 07/12/2022, Additional history exists Potassium Level 08/16/2023 08/15/2022, 07/31, 07/12/2022, Additional history exists Sodium Level 08/16/2023 08/15/2022, 07/31, 07/12/2022, Additional history exists DTaP,Tdap,and Td Vaccines (3 - Td or Tdap) 08/05/2029 08/06/2019, 04/24/2015 Influenza Vaccine Completed 03/29/2023, , 01/29/2017 Medical Devices Implanted Type Area Teacher Lip Reading Device Identifier Shelf Expiration Date Model / Serial / Lot 125 Left Trigen Intertan 10s Nail Tl-6al-4v Implanted:Qty : 1 on 10/21/2017 at [facility] Other Left: Hip Delaney [employer] Nephew [id number] 04/02/2023 [id number] / / [id number] Trigen Intertan Subtroch Lag Screw Tl-6al-4v Implanted:Qty : 1 on 10/21/2017 at [facility] Other Left: Hip [employer]aney [employer] Nephew 08/29/2025 [id number] / / [id number] Advance Directives For more information, please contact: [phone] * Full Code (Latest Code Status on File) Date Activated Date Inactivated Comments 10/25/2017 12:02 AM 11/02/2017 3:56 PM Question Answer Comments Full Code: Not Discussed Due to: Not medically appropriate * Full Code Date Activated Date Inactivated Comments 10/21/2017 12:22 AM 10/24/2017 11:59 PM Question Answer Comments Full Code: Not Discussed Due to: Not medically appropriate Care Teams Youth Agent Relationship Specialty Start Date End Date Elsewhere, Pcp PCP - General Medical Administrator 04/11/19
[2023-07-10] MEDS: SODIUM CHLORIDE 0.9 % (FLUSH) 10 ML SYRINGE IVF (07:54)
--- NOTE | 2023-07-10 08:15 | XR_ITS ---
Patient: CLIVE CUEVAS Facility:?[facility] Patient ID:?[id number] Site Patient ID:?[id number]. Site :?[id number] Study:?XRay-Hip Right TOTAL HIP, AA-07/10/2023 11:10:34 AM Ordering Physician:NANDO Final Report: Indication: Hip replacement surgery Technique: AP hip fluoroscopic image. Fluoroscopy time 77 seconds. Findings/Impression: Hardware from a right total hip arthroplasty is in satisfactory position. Dictated by Braulio Olsen MD @ 07/12/2023 9:00:03 AM Signed by:?Braulio Olsen MD @07/12/2023 9:00:03 AM (Electronic Signature)
--- NOTE | 2023-07-10 08:24 | SUR.PREOP ---
TIME?OUT:?0820 PT/RN/MDA?VERIFICATION?OF?SURGICAL?SITE,?PROCEDURE,?AND?CONSENT OBTAINED?PRIOR?TO?INVASIVE?PROCEDURE.right hip lisa oneal rn
[2023-07-10] MEDS: CEFAZOLIN 2 GM INJ IVP (08:50)
--- NOTE | 2023-07-10 09:19 | P.NB_ITS ---
Nerve Block Nerve Block Time Seen by Provider: 08:23 Date Seen: 07/10/23 Type of block requested by surgeon for post-operative analgesia: GHAZAL/LFCN Side: right Time out performed: Yes Verification of patient name: Yes Verification of date of : Yes Site marking: site marked Name of person performing procedure: Fadi Continuous monitoring Was continuous monitoring of O2 sat, B/P, net solutions architect, recorded every 15 minutes?: Yes Procedure Checklist: sterile prep, needles and gloves Ultrasound guided. Images saved: Yes Medications given in 5ml increments after negative aspiration: Ropivicaine %: 0.5 mL: 30 Needle gauge: 20 Decadron (mg): 10 Precedex (mcg): 25 Patient tolerated procedure well: Yes Additional comments: Needle noted below psoas tendon needle noted adjacent to LFCN Block Charges Block Charge (with Pro Fee): Other Periph Nerve Block Use of Ultrasound Machine for Block: Yes- US Guidance/pain block
--- NOTE | 2023-07-10 09:20 | W.ANESCHARGE ---
Anesthesia Charges Start Date/Time Anesthesia Start Date: 07/10/23 Anesthesia Start Time: 08:35 Stop Date/Time Anesthesia Stop Date: 07/10/23 Anesthesia Stop Time: 11:45 Summary Extremes of Age - Over 70 or under 1: MDA
--- NOTE | 2023-07-10 09:27 | SUR.PREOP ---
noting scratches and scabs redness and swelling on pts lower right leg Pt stated he had a allergic reation, had itching and scratched site Dr. Ford notified and came and took a a look at the right lower extremity decided it would be ok to continue with surgery
--- NOTE | 2023-07-10 10:54 | XR_ITS ---
Patient: CLIVE CUEVAS Facility:?[facility] Patient ID:?[id number] Site Patient ID:?[id number]. Site :?[id number] Study:?XRay-Hip Right Post op-07/10/2023 12:22:31 PM Ordering Physician:?Remington Ford Final Report: Indication: Postop Technique: AP hip centered pelvis and lateral view right hip Findings/Impression: Hardware from a right total hip arthroplasty is in satisfactory position. Bone alignment is normal. No sign of acute fracture. Postop changes are within normal limits. Dictated by Braulio Olsen MD @ 07/12/2023 9:04:49 AM Signed by:?Braulio Olsen MD @07/12/2023 9:04:49 AM (Electronic Signature)
--- NOTE | 2023-07-10 10:56 | PM.ORPRC ---
Procedure Note Date of procedure: 07/10/23 Procedure: PREOPERATIVE DIAGNOSIS: Right hip osteoarthritis POSTOPERATIVE DIAGNOSIS: Right hip osteoarthritis NAME OF OPERATION: Right total hip arthroplasty SURGEON: Remington Ford MD FILLER SHREDDER: Erin Barth PA-C, FAISAL Saez IMPLANTS: 1. [employer] Paradis # 58 sector ingrowth cup 2. 36 x 58 +4 neutral polyethylene 3. [place] # 8 standard collared cemented stem 4. 36 + 1.5 cobalt chrome femoral head ANESTHESIA: General ESTIMATED BLOOD LOSS: 800 cc COMPLICATIONS: None SPECIMENS: None DRAINS: None PREOPERATIVE ANTIBIOTICS: Ancef 2 grams, antibiotic impregnated cement INDICATIONS: The patient is a 88-year-old with a longstanding history of severe, unrelenting right hip pain secondary to end-stage right hip osteoarthritis. Despite appropriate nonoperative management, including activity modification, use of an assist device, anti-inflammatories, geko-dgb-oosruwe pain medication, physical therapy and injections, they continue to have pain and disability. Operative intervention was offered. The risks, benefits and expected outcomes were discussed in detail. These included but were not limited to: Infection, bleeding, injury to blood vessel or nerve, venous thromboembolism. All questions were answered to their satisfaction. Use of an client account assistant was necessary throughout the case for patient positioning and safety, soft tissue retraction and closure. PROCEDURE: The patient was placed supine on the [place] table. General anesthesia was administered. The client account assistant made sure the patient was properly positioned. The right hip was prepped and draped in the usual sterile fashion. The image intensifier was brought in for a perfect AP pelvis and a perfect double tear drop AP view of each hip which were used for intraoperative templating with our fluoroscopic guide. An oblique incision was made 3 cm distal and 3 cm lateral to the anterior superior iliac spine. The client account assistant retracted the soft tissues to protect them. Subcutaneous dissection was taken with electrocautery to the superficial fascia. The fascia was divided in line with the incision. Blunt dissection was carried medially to the tensor fascia jack and sartorius interval. Deep dissection was carried with electrocautery. The circumflex vessels were cauterized and divided. The capsule was exposed and then divided in a T-fashion, tagged with #1 Ethibond sutures. Retractors were placed in the joint, held by the client account assistant. The corkscrew was placed in the femoral head. The neck cut was made in the subcapital region. We made a second neck cut more distal. The napkin ring of bone was removed. The femoral head was removed intact. Acetabular retractors were placed, held by the client account assistant. The labrum was sharply debrided. The capsule was released. The 43 mm reamer was used to the true medial wall. We then enlarged in 2 mm increments using the image intensifier for our reamer placement. We impacted the cup which had excellent purchase. We placed the polyethylene. Attention was then turned to the proximal femur. The limb was placed in 140 degrees of external rotation, maximum extension and adduction. A significant amount of time was spent releasing the capsule to allow us to deliver the femur into the wound and complete the femoral side safely. Retractors were held by the client account assistant throughout the femoral preparation. The box spring maker and canal finder were used. Broaches were used to a stable size. The calcar reamer was used. Trial components were placed. The hip was reduced and was found to be stable with appropriate soft tissue tension. Length and offset had been nicely restored using the image intensifier and our fluoroscopic guide. Trial components were removed. The cement restrictor was placed. The canal was irrigated with pulse lavage and thoroughly dried. Cement was placed with the gun and then hand pressurized. The stem was placed in the cement mantle with appropriate version. It was held in place while the cement hardened. We placed the femoral head. Again, the hip was reduced and was found to be stable with appropriate soft tissue tension. Length and offset had been nicely restored. The client account assistant did a three minute dilute Betadine solution soak. The client account assistant irrigated the wound with 3 liters of normal saline via pulse lavage. The client account assistant repaired the anterior capsule with a #1 Vicryl and our previously placed Ethibond sutures. The client account assistant closed the fascia over the tensor fascia jack with a #1 PDO Stratafix, subcutaneous tissues with 2-0 Vicryl, skin with a running 3-0 Stratafix and glue. A dry dressing was applied by the client account assistant. Sponge and needle counts were correct x 2. The patient tolerated the procedure well; there were no apparent complications. They were awakened and extubated in the operating room, sent to the Post-Anesthesia Care Unit in satisfactory condition. PLAN: 1. The patient will be mobilized with physical therapy, weight-bearing as tolerates 2. His usual dose of Xarelto can be restarted tomorrow 3. The patient will be discharged once medically appropriate
[2023-07-10] MEDS: fentaNYL 100 MCG/2 ML inj 50 MCG IVP ×2 (11:56→12:16)
[2023-07-10] MEDS: HYDROmorphone 0.5 mg/0.5 ml inj IVP ×2 (12:03→13:58)
[2023-07-10] MEDS: hydrOXYzine pamoate 25 MG CAPSULE PO (12:34)
--- NOTE | 2023-07-10 14:48 | P.IMCN_ITS ---
Date of Consult Consult date: 07/10/23 Primary Care Provider: Braulio Gonsales MD Consult Narrative Narrative: HOSPITALIST CONSULT Procedure: NAME OF OPERATION: Right total hip arthroplasty SURGEON: Remington Ford MD ANESTHESIA: General ESTIMATED BLOOD LOSS: 800 cc COMPLICATIONS: None The hospital medicine team was asked by the orthopedic surgery team to manage the patient's hypertension, atrial fibrillation There have been no perioperative complications. Updated and reviewed the active medical problems, past medical history, past surgical history, social history, allergies and medications in our electronic EMR. Sleep apnea: No Prior surgical complications/problem: No Bleeding problems: No Anesthesia complications/problems: No History of MRSA/VRE: No History of PE/DVT: No Family history of surgical problems/complications: No Family history of anesthesia problems/complications: No PHYSICAL EXAM: CODE STATUS: FULL CODE CONSTITUTIONAL: Conversive, good historian. A/O. Knows setting and context. VITAL SIGNS: see record. HEENT: Normocephalic, atraumatic. PERRL, EOMI, conjunctivae pink, no scleral icterus. Ears and nose externally normal. Pharynx normal. NECK: No JVD. No carotid bruit, no thyromegaly, no adenopathy. CHEST: Clear to auscultation bilaterally HEART: S1 and S2 normal. ABDOMEN: Flat, soft, nontender. Normal bowel sounds. Moderately obese. EXTREMITIES: No edema. MUSCULOSKELETAL: NEURO: Cranial nerves intact. Mentation normal. Normal affect. SKIN: No rashes, petechiae, concerning changes PSYCHIATRIC: Mentation normal. INVESTIGATIONS: EMR Reviewed; Pre-OP Reviewed DISPOSITION: DVT: Recommend restarting Xarelto, 15 mg (home dose) if hemoglobin is stable, consider 10 mg for 4 days as an alternative GI: PO intake PFSH PFS Medical History (Updated 07/10/23 @ 15:21 by Ale Contreras MD) BPH (benign prostatic hyperplasia) ?N40.0 - Benign prostatic hyperplasia without lower urinary tract symptoms (ICD-10) Primary hypertension ?I10 - Essential (primary) hypertension (ICD-10) Lichen simplex chronicus ?L28.0 - Lichen simplex chronicus (ICD-10) Osteoarthritis of right hip ?M16.11 - Unilateral primary osteoarthritis, right hip (ICD-10) History of temporal arteritis ?Z87.39 - Personal history of other diseases of the musculoskeletal system and connective tissue (ICD-10) Atrial fibrillation ?I48.91 - Unspecified atrial fibrillation (ICD-10) Right inguinal hernia ?K40.90 - Unilateral inguinal hernia, without obstruction or gangrene, not specified as recurrent (ICD-10) Surgical History (Updated 07/10/23 @ 15:21 by Ale Contreras MD) Status post cataract extraction ?Z98.49 - Cataract extraction status, unspecified eye (ICD-10) Status post left inguinal hernia repair ?Z98.890 - Other specified postprocedural states (ICD-10) ?Z87.19 - Personal history of other diseases of the digestive system (ICD-10) Status post open reduction and internal fixation (ORIF) of fracture ?Z98.890 - Other specified postprocedural states (ICD-10) ?Z87.81 - Personal history of (healed) traumatic fracture (ICD-10) Status post shoulder surgery ?Z98.890 - Other specified postprocedural states (ICD-10) Social History (Updated 06/25/23 @ 20:46 by Braulio Gonsales MD) Narrative: Lives alone, nonsmoker, retired What is your current living situation?: I presently have a place to live Problems where you live: no known problems In the past 12 months, utilities in danger of being shut off: no In past 12 months, lack of transportation kept you from medical appts, meetings, work, or getting things needed for daily living: no In the past 12 mos, have been you worried that your food would run out before you had money to buy more?: never true In the past 12 mos, the food you bought just didn't last and you didn't have money to buy more?: never true Highest level of school completed/degree received: 12th grade, no diploma Smoking Status: Former smoker What tobacco products do you use: cigarettes Smoking quit date/years: >15 years ago Do you use any of these nicotine containing products: None Second hand tobacco smoke exposure: No How often do you have a drink containing alcohol: monthly or less Alcohol type: beer How many standard drinks containing alcohol do you have on a typical day: 1 or 2 How often do you have six or more drinks on one occasion: Never AUDIT-C Alcohol total score: 1 Non-prescribed substance use: denies use Caffeine: Yes (coffee) How often does anyone, including family, friends and others, physically hurt you : never How often does anyone, including family, friends and others, insult or talk down to you: never How often does anyone, including family, friends and others, threaten you with harm: never How often does anyone, including family, friends and others, scream or curse at you: never Little interest or pleasure in doing things: not at all Feeling down, depressed, or hopeless: not at all service: Yes Meds Home Medications and Allergies Home Medications Medication Instructions Recorded Confirmed Type amlodipine 5 mg tablet 5 mg PO DAILY 10/24/22 07/10/23 History calcium carbonate 500 mg-vitamin 0.5 tab PO DAILY 10/24/22 07/10/23 History D3 10 mcg (400 unit) tablet (Calcium 500 + D) diltiazem HCl 120 mg 120 mg PO DAILY 10/24/22 07/10/23 History capsule,extended release 24 hr vit C 250 mg-vit E 90 mg-zinc 40 1 tab PO BID 10/24/22 07/10/23 History mg-copper 1 [id number] capsule (PreserVision AREDS-2) pyridoxine (vitamin B6) 500 mg 500 mg PO DAILY 06/25/23 07/10/23 History tablet cyanocobalamin (vitamin B-12) 500 500 mcg PO DAILY 07/10/23 07/10/23 History mcg tablet rivaroxaban 15 mg tablet (Xarelto) 15 mg PO DAILY 07/10/23 07/10/23 History spironolactone 25 mg tablet 25 mg PO DAILY 07/10/23 07/10/23 History tamsulosin 0.4 mg capsule 0.4 mg PO DAILY 07/10/23 07/10/23 History Allergies Allergy/AdvReac Type Severity Reaction Status Date / Time ibuprofen Allergy Severe lip Verified 07/10/23 07:55 swelling, numbness Exam Const: Vital Signs, click to edit/add: Vital Signs - 24 hr 07/10/23 07:41 07/10/23 08:30 07/10/23 11:41 Temperature 97.7 F 97.4 F L Pulse Rate 104 H 84 109 H Respiratory Rate 18 18 14 Blood Pressure 111/73 116/69 107/75 Pulse Oximetry 99 96 96 Oxygen Delivery Me thod Room Air Nasal Cannula Nasal Cannula Oxygen Flow Rate 3 4 07/10/23 11:46 07/10/23 11:51 07/10/23 11:56 Temperature Pulse Rate 100 100 100 Respiratory Rate 14 14 14 Blood Pressure 104/76 114/74 104/73 Pulse Oximetry 96 96 96 Oxygen Delivery Me thod Nasal Cannula Nasal Cannula Nasal Cannula Oxygen Flow Rate 4 4 4 07/10/23 12:03 07/10/23 12:08 07/10/23 12:13 Temperature Pulse Rate 100 100 100 Respiratory Rate 14 14 14 Blood Pressure 99/69 107/59 L 112/72 Pulse Oximetry 100 100 100 Oxygen Delivery Me thod Nasal Cannula Nasal Cannula Nasal Cannula Oxygen Flow Rate 4 4 2 07/10/23 12:18 07/10/23 12:23 07/10/23 12:28 Temperature Pulse Rate 100 100 100 Respiratory Rate 14 14 14 Blood Pressure 110/78 99/70 102/62 Pulse Oximetry 100 97 97 Oxygen Delivery Me thod Nasal Cannula Nasal Cannula Nasal Cannula Oxygen Flow Rate 2 2 2 07/10/23 12:34 07/10/23 12:39 07/10/23 13:00 Temperature 97.2 F L 96.0 F L Pulse Rate 100 100 100 Respiratory Rate 14 14 14 Blood Pressure 106/63 109/73 100/58 L Pulse Oximetry 97 97 91 Oxygen Delivery Me thod Room Air Room Air Nasal Cannula Oxygen Flow Rate 3 07/10/23 13:30 07/10/23 13:46 07/10/23 14:00 Temperature 96.5 F L 96.0 F L 96.5 F L Pulse Rate 100 110 H 111 H Respiratory Rate 14 14 14 Blood Pressure 108/69 100/63 101/75 Pulse Oximetry 95 91 95 Oxygen Delivery Me thod Nasal Cannula Nasal Cannula Nasal Cannula Oxygen Flow Rate 2 3 2 Assessment and Plan Assessment and plan (1) Status post right hip replacement: Problem comment: 07/09 [facility]. [facility] medicine team is happy to follow this patient through to discharge. I note tachycardia and soft blood pressures upon arrival to the floor. I am ordering EKG, cardiac monitoring and a stat hemoglobin. He palpates as AFib and has not had his diltiazem this morning. -we can treat this AFib RVR with IV Dilt or IV Lopressor depending on his blood pressure - could consider digoxin as well if MAP is too low for continued rate control with dilt or lopressor -we can restart his oral anticoagulation, in the a.m., presuming stability from a bleeding standpoint Status: Acute (2) Atrial fibrillation: Problem comment: Rate controlled (maybe suboptimal? clinic visit was 104-120 bpm), anticoagulated at baseline -continue diltiazem 120 mg q.a.m. Maybe he needs dig? -p.r.n. IV Lopressor for heart rate greater than 110 -restart anticoagulation - patient currently takes 15 mg of Xarelto. we will schedule 10 mg for 07/10, pending hemoglobin (given reported 800 mL blood loss) Status: Acute (3) Primary hypertension: Status: Acute (4) CKD (chronic kidney disease) stage 3, GFR 30-59 ml/min: Status: Acute
[2023-07-10] MEDS: CEFAZOLIN 2 GM in 0.9 % SODIUM CHLORIDE Mini-bag 100 ML IVPB ×2 (15:12→23:39)
[2023-07-10] MEDS: METOPROLOL TARTRATE 1 MG/ML inj 5 MG IVP (15:36)
[2023-07-10] MEDS: ERYTHROMYCIN OPHTH OINT 3.5 GM 1 APPLIC EYE-RIGHT ×2 (15:37→20:54)
[2023-07-10 15:41] LABS: Hemoglobin* 9.8 gm/dL (13.5-17.5)
--- NOTE | 2023-07-10 15:52 | PC.NURSE ---
The patient arrived to the unit @ 1245 drowsy and tired. The patient was noted to have 800cc of Blood loss. Pressures are soft around 100/60's. HR was noted to be tachycardic.... MD aware order for tele and EKG were obtained. IV 5mg of metoprolol was given per parameters. Audible upper wheeze noted upon assessment R hip dressing is CDI.. pedal pulse present 3+ edema noted in bilateral feet. Ice pack to R hip. Tolerating fluids. The patient intermittently falls asleep in between cares. Call light within reach. The patients son Chad would like to be called with any updates. Tracy WILSON BSN
[2023-07-10] MEDS: OXYCODONE 5 MG TABLET PO (20:21)
[2023-07-10] MEDS: SENNOSIDES 1 TAB TABLET 2 TAB PO (20:22)
[2023-07-11] VITALS (13 sets, daily range): BP systolic 90–112; BP diastolic 62–71; PULSE 78–116; RESP 16–20; TEMP 36.5–36.9; O2SAT 90–99
[2023-07-11] MEDS: 0.9 % SODIUM CHLORIDE 500 ML 500 ML IV (00:15)
[2023-07-11] MEDS: ACETAMINOPHEN 500 MG TABLET 1000 MG PO ×4 (02:10→20:24)
[2023-07-11] MEDS: LACTATED RINGERS 1000 ML 1,000 ML 75 ML IV (02:11)
[2023-07-11] MEDS: ERYTHROMYCIN OPHTH OINT 3.5 GM 1 APPLIC EYE-RIGHT (05:50)
[2023-07-11 06:59] LABS: Basophils Percent Auto 0.1 % (0.0-3.0); Hematocrit 27.7 % (37.0-53.0); Hemoglobin* 8.7 gm/dL (13.5-17.5); Immature Granulocytes Pct Auto 0.2 %; Lymphocytes Percent Auto 5.3 % (20-44); Mean Corpuscular HGB Conc 31 gm/dL (32-36); Mean Corpuscular Hemoglobin 31 pg (26-34); Mean Corpuscular Volume 98 fL (80-100); Monocytes Percent Auto 8.8 % (0.0-11.0); Neutrophils Percent Auto 85.6 % (42.0-72.0); Platelet Count* 207 K/uL (140-440); RDW Coefficient of Variation % 15.4 % (11.5-15.5); Red Blood Count 2.83 m/uL (4.30-5.90); White Blood Count* 12.82 K/uL (4.50-11.00)
[2023-07-11 07:17] LABS: Slide Review Reflex No
[2023-07-11 07:27] LABS: Potassium* 5.5 mmol/L (3.6-5.1); Sodium* 138 mmol/L (135-149)
[2023-07-11 07:29] LABS: Creatinine* 2.1 mg/dL (0.5-1.5); Est. Creatinine Clearance* 22.73; Estimated Glomerular Filt Rate 30 ml/min
[2023-07-11 07:30] LABS: Blood Urea Nitrogen* 42 mg/dL (7-30)
[2023-07-11] MEDS: DIGOXIN 250 MCG TABLET 500 MCG PO (07:59)
--- NOTE | 2023-07-11 08:47 | PC.NURSE ---
Pt alert and oriented x3. Afebrile. Pt reports 2/10 pain in right hip, managed with ice pack and scheduled Tylenol. Pt had low blood pressures and tachycardia, MD Gan updated, 500 cc bolus of normal saline ordered. Pt is up SBA to bathroom, voiding, and tolerating regular diet. Pt was on 1L of O2 via nasal cannula overnight to maintain O2 stats of 90% or higher. Pt was encouraged to use IS, cough and deep breath. Pt slept throughout most of night.
--- NOTE | 2023-07-11 08:48 | PM.ORPN ---
Subjective Subjective Time Seen by Provider: 07:15 Date Seen: 07/11/23 Principal diagnosis: Status post right hip replacement Interval history: Shade is comfortable at rest in the recliner this morning. He will be staying another day or 2. He will be getting blood. His atrial fib is not controlled. Ortho Exam Narrative Exam Narrative: Alert. Patient is in no acute distress. Converses without labored breathing. Hearing is grossly intact. Ambulates with a walker. Examination of the right hip shows no erythema or warmth or sign of infection. Edema is present. CMS intact right lower extremity. Bilatera lower extremity edema with excoriation. Calves are soft and nontender. Dressing is intact. Const Vital Signs, click to edit/add: Vital Signs - 24 hr 07/10/23 11:41 07/10/23 11:46 07/10/23 11:51 Temperature 97.4 F L Pulse Rate 109 H 100 100 Pulse Rate [Left Pulse Oximeter] Respiratory Rate 14 14 14 Blood Pressure 107/75 104/76 114/74 Blood Pressure [Right Arm] Pulse Oximetry 96 96 96 Oxygen Delivery Method Nasal Cannula Nasal Cannula Nasal Cannula Oxygen Flow Rate 4 4 4 07/10/23 11:56 07/10/23 12:03 07/10/23 12:08 Temperature Pulse Rate 100 100 100 Pulse Rate [Left Pulse Oximeter] Respiratory Rate 14 14 14 Blood Pressure 104/73 99/69 107/59 L Blood Pressure [Right Arm] Pulse Oximetry 96 100 100 Oxygen Delivery Method Nasal Cannula Nasal Cannula Nasal Cannula Oxygen Flow Rate 4 4 4 07/10/23 12:13 07/10/23 12:18 07/10/23 12:23 Temperature Pulse Rate 100 100 100 Pulse Rate [Left Pulse Oximeter] Respiratory Rate 14 14 14 Blood Pressure 112/72 110/78 99/70 Blood Pressure [Right Arm] Pulse Oximetry 100 100 97 Oxygen Delivery Method Nasal Cannula Nasal Cannula Nasal Cannula Oxygen Flow Rate 2 2 2 07/10/23 12:28 07/10/23 12:34 07/10/23 12:39 Temperature 97.2 F L Pulse Rate 100 100 100 Pulse Rate [Left Pulse Oximeter] Respiratory Rate 14 14 14 Blood Pressure 102/62 106/63 109/73 Blood Pressure [Right Arm] Pulse Oximetry 97 97 97 Oxygen Delivery Method Nasal Cannula Room Air Room Air Oxygen Flow Rate 2 07/10/23 13:00 07/10/23 13:30 07/10/23 13:46 Temperature 96.0 F L 96.5 F L 96.0 F L Pulse Rate 100 100 110 H Pulse Rate [Left Pulse Oximeter] Respiratory Rate 14 14 14 Blood Pressure 100/58 L 108/69 100/63 Blood Pressure [Right Arm] Pulse Oximetry 91 95 91 Oxygen Delivery Method Nasal Cannula Nasal Cannula Nasal Cannula Oxygen Flow Rate 3 2 3 07/10/23 14:00 07/10/23 14:00 07/10/23 14:30 Temperature 96.5 F L 96.5 F L Pulse Rate 111 H 109 H Pulse Rate [Left Pulse Oximeter] Respiratory Rate 14 14 Blood Pressure 101/75 108/60 Blood Pressure [Right Arm] Pulse Oximetry 95 91 95 Oxygen Delivery Method Nasal Cannula Nasal Cannula Nasal Cannula Oxygen Flow Rate 2 2 2 07/10/23 15:00 07/10/23 15:00 07/10/23 15:00 Temperature 97.2 F L Pulse Rate 121 H Pulse Rate [Left Pulse Oximeter] 121 H Respiratory Rate 16 16 16 Blood Pressure 104/69 Blood Pressure [Right Arm] Pulse Oximetry 96 96 Oxygen Delivery Method Nasal Cannula Nasal Cannula Oxygen Flow Rate 1 1 07/10/23 15:30 07/10/23 16:30 07/10/23 17:30 Temperature 97.4 F L 97.9 F Pulse Rate 121 H 112 H 111 H Pulse Rate [Left Pulse Oximeter] Respiratory Rate 16 16 16 Blood Pressure 113/72 106/66 106/66 Blood Pressure [Right Arm] Pulse Oximetry 98 96 97 Oxygen Delivery Method Nasal Cannula Nasal Cannula Room Air Oxygen Flow Rate 1 1 07/10/23 18:30 07/10/23 23:00 07/10/23 23:00 Temperature 98.4 F Pulse Rate 100 101 H Pulse Rate [Left Pulse Oximeter] 104 H Respiratory Rate 16 16 Blood Pressure 111/75 Blood Pressure [Right Arm] 86/55 L Pulse Oximetry 95 90 Oxygen Delivery Method Nasal Cannula Room Air Oxygen Flow Rate 1 07/10/23 23:00 07/10/23 23:00 07/11/23 02:13 Temperature 98.4 F Pulse Rate Pulse Rate [Left Pulse Oximeter] 102 H Respiratory Rate 16 16 16 Blood Pressure Blood Pressure [Right Arm] 92/71 Pulse Oximetry 92 94 Oxygen Delivery Method Nasal Cannula Room Air Oxygen Flow Rate 1 07/11/23 07:59 Temperature Pulse Rate 106 H Pulse Rate [Left Pulse Oximeter] Respiratory Rate Blood Pressure Blood Pressure [Right Arm] Pulse Oximetry Oxygen Delivery Method Oxygen Flow Rate Assessment and Plan Assessment and plan (1) Status post right hip replacement: Problem details: 07/10/2023Liliana Status: Acute Assessment and Plan: Plan for discharge is in a day or 2 when he meets discharge criteria. He will get blood today. DVT prophylaxis upon discharge. Planning Xarelto 15 mg daily. Remove dressing 1 week. Observe wound and phone Orthopedics with any questions or concerns Use Ice on operative hip unrestricted. Return to clinic in 1 week with PA for a wound check Return to clinic in 6 weeks with surgeon Minimize narcotic use. Wean off and discontinue soon as possible. Activities as tolerated. No strenuous activity. Attend outpt PT
[2023-07-11] MEDS: TAMSULOSIN HCL 0.4 MG CAPSULE PO (10:00)
[2023-07-11] MEDS: SPIRONOLACTONE 25 MG TABLET PO (10:00)
[2023-07-11] MEDS: SENNOSIDES 1 TAB TABLET 2 TAB PO ×2 (10:01→20:26)
--- NOTE | 2023-07-11 10:47 | P.ANES_ITS ---
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
--- NOTE | 2023-07-11 11:14 | PM.IMPN1 ---
Progress Note: A&P Assessment and plan (1) Status post right hip replacement: Problem details: 07/10/2023Liliana Status: Acute (2) CKD (chronic kidney disease) stage 3, GFR 30-59 ml/min: Problem details: bump in creat overnight, likely from hypotension. fluid bolus, control rate, support blood pressure Status: Acute (3) BPH (benign prostatic hyperplasia): Status: Acute (4) Atrial fibrillation: Problem details: Rate controlled (maybe suboptimal? clinic visit was 104-120 bpm), anticoagulated at baseline - holding for now b/c of concern of blood loss -hold dilt. start dig, with 500mcg load am of 07/10 -p.r.n. IV Lopressor for heart rate greater than 110 -restart anticoagulation on 07/11 - patient currently takes 15 mg of Xarelto (renal dosed with hx of AFIB) Status: Acute (5) Primary hypertension: Status: Acute (6) ABLA (acute blood loss anemia): Problem details: 12.1-->8.7 hypotensive, tachycardia AFIB poorly controlled 1 unit PRBCS hold dilt, start dig fluid bolus Status: Acute Subjective Date Seen: 07/11/23 Interval history: Procedure: NAME OF OPERATION: Right total hip arthroplasty SURGEON: Remington Ford MD ANESTHESIA: General ESTIMATED BLOOD LOSS: 800 cc COMPLICATIONS: None Exam Const: Vital Signs, click to edit/add: Vital Signs - 24 hr 07/10/23 11:41 07/10/23 11:46 07/10/23 11:51 Temperature 97.4 F L Pulse Rate 109 H 100 100 Pulse Rate [Left P ulse Oximeter] Respiratory Rate 14 14 14 Blood Pressure 107/75 104/76 114/74 Blood Pressure [Ri ght Arm] Pulse Oximetry 96 96 96 Oxygen Delivery Me thod Nasal Cannula Nasal Cannula Nasal Cannula Oxygen Flow Rate 4 4 4 07/10/23 11:56 07/10/23 12:03 07/10/23 12:08 Temperature Pulse Rate 100 100 100 Pulse Rate [Left P ulse Oximeter] Respiratory Rate 14 14 14 Blood Pressure 104/73 99/69 107/59 L Blood Pressure [Ri ght Arm] Pulse Oximetry 96 100 100 Oxygen Delivery Me thod Nasal Cannula Nasal Cannula Nasal Cannula Oxygen Flow Rate 4 4 4 07/10/23 12:13 07/10/23 12:18 07/10/23 12:23 Temperature Pulse Rate 100 100 100 Pulse Rate [Left P ulse Oximeter] Respiratory Rate 14 14 14 Blood Pressure 112/72 110/78 99/70 Blood Pressure [Ri ght Arm] Pulse Oximetry 100 100 97 Oxygen Delivery Me thod Nasal Cannula Nasal Cannula Nasal Cannula Oxygen Flow Rate 2 2 2 07/10/23 12:28 07/10/23 12:34 07/10/23 12:39 Temperature 97.2 F L Pulse Rate 100 100 100 Pulse Rate [Left P ulse Oximeter] Respiratory Rate 14 14 14 Blood Pressure 102/62 106/63 109/73 Blood Pressure [Ri ght Arm] Pulse Oximetry 97 97 97 Oxygen Delivery Me thod Nasal Cannula Room Air Room Air Oxygen Flow Rate 2 07/10/23 13:00 07/10/23 13:30 07/10/23 13:46 Temperature 96.0 F L 96.5 F L 96.0 F L Pulse Rate 100 100 110 H Pulse Rate [Left P ulse Oximeter] Respiratory Rate 14 14 14 Blood Pressure 100/58 L 108/69 100/63 Blood Pressure [Ri ght Arm] Pulse Oximetry 91 95 91 Oxygen Delivery Me thod Nasal Cannula Nasal Cannula Nasal Cannula Oxygen Flow Rate 3 2 3 07/10/23 14:00 07/10/23 14:00 07/10/23 14:30 Temperature 96.5 F L 96.5 F L Pulse Rate 111 H 109 H Pulse Rate [Left P ulse Oximeter] Respiratory Rate 14 14 Blood Pressure 101/75 108/60 Blood Pressure [Ri ght Arm] Pulse Oximetry 95 91 95 Oxygen Delivery Me thod Nasal Cannula Nasal Cannula Nasal Cannula Oxygen Flow Rate 2 2 2 07/10/23 15:00 07/10/23 15:00 07/10/23 15:00 Temperature 97.2 F L Pulse Rate 121 H Pulse Rate [Left P ulse Oximeter] 121 H Respiratory Rate 16 16 16 Blood Pressure 104/69 Blood Pressure [Ri ght Arm] Pulse Oximetry 96 96 Oxygen Delivery Me thod Nasal Cannula Nasal Cannula Oxygen Flow Rate 1 1 07/10/23 15:30 07/10/23 16:30 07/10/23 17:30 Temperature 97.4 F L 97.9 F Pulse Rate 121 H 112 H 111 H Pulse Rate [Left P ulse Oximeter] Respiratory Rate 16 16 16 Blood Pressure 113/72 106/66 106/66 Blood Pressure [Ri ght Arm] Pulse Oximetry 98 96 97 Oxygen Delivery Me thod Nasal Cannula Nasal Cannula Room Air Oxygen Flow Rate 1 1 07/10/23 18:30 07/10/23 23:00 07/10/23 23:00 Temperature 98.4 F Pulse Rate 100 101 H Pulse Rate [Left P ulse Oximeter] 104 H Respiratory Rate 16 16 Blood Pressure 111/75 Blood Pressure [Ri ght Arm] 86/55 L Pulse Oximetry 95 90 Oxygen Delivery Me thod Nasal Cannula Room Air Oxygen Flow Rate 1 07/10/23 23:00 07/10/23 23:00 07/11/23 02:13 Temperature 98.4 F Pulse Rate Pulse Rate [Left P ulse Oximeter] 102 H Respiratory Rate 16 16 16 Blood Pressure Blood Pressure [Ri ght Arm] 92/71 Pulse Oximetry 92 94 Oxygen Delivery Me thod Nasal Cannula Room Air Oxygen Flow Rate 1 07/11/23 07:00 07/11/23 07:59 07/11/23 09:41 Temperature 98.1 F 98.1 F Pulse Rate 106 H 116 H Pulse Rate [Left P ulse Oximeter] 113 H Respiratory Rate 16 18 Blood Pressure 99/70 Blood Pressure [Ri ght Arm] 99/70 Pulse Oximetry 96 90 Oxygen Delivery Me thod Nasal Cannula Oxygen Flow Rate 0.5 07/11/23 10:06 07/11/23 10:08 Temperature 98.0 F 98.1 F Pulse Rate 100 92 Pulse Rate [Left P ulse Oximeter] Respiratory Rate 18 18 Blood Pressure 112/65 111/62 Blood Pressure [Ri ght Arm] Pulse Oximetry 95 99 Oxygen Delivery Me thod Oxygen Flow Rate Labs Labs: Laboratory Results - last 24 hr 07/10/23 07/10/23 07/11/23 07:38 15:35 05:48 WBC 12.82 H RBC 2.83 L Hgb 9.8 L 8.7 L Hct 27.7 L MCV 98 MCH 31 MCHC 31 L RDW Coeff of Eva 15.4 Plt Count 207 Neut % (Auto) 85.6 H Lymph % (Auto) 5.3 L [place] % (Auto) 8.8 Eos % (Auto) 0.0 Baso % (Auto) 0.1 Neut # (Auto) 11.00 H Lymph # (Auto) 0.70 L [place] # (Auto) 1.10 H Eos # (Auto) 0.00 Baso # (Auto) 0.00 Abs Immat Gran (auto) 0.00 Imm/Tot Granulo (auto) 0.2 Sodium 138 Potassium 5.5 H BUN 42 H Creatinine 2.1 H Estimated Creat Clear 22.73 Estimated GFR 30 Blood Type A Positive Antibody Screen NEGATIVE Crossmatch (AHG) See Detail
[2023-07-11] MEDS: LACTATED RINGERS 500 ML 500 ML 250 ML IV (12:27)
--- NOTE | 2023-07-11 14:59 | PC.SOCIAL ---
Met with pt to discuss discharge plans. Pt is planning to go to pt's niece's home in [place] for recovery. Pt reports his niece is a RN at the clinic in [place]. When pt's niece is working pt's niece's will assist pt. Pt reports he lives with his son at his home. Pt's son works during the day. Pt's sister is planning to stay with him when pt returns to his home. Pt plans to do outpatient therapy at the clinic in [place]. Pt does not have any identified social work needs.
[2023-07-11] MEDS: DIGOXIN 250 MCG TABLET PO (16:30)
[2023-07-11] MEDS: OXYCODONE 5 MG TABLET PO (16:42)
--- NOTE | 2023-07-11 18:44 | PC.NURSE ---
End of shift-- Very pleasant and cooperative, alert and oriented patient. VSS, though at times tachycardic and hypotensive, and pt is afebrile. Pt given 1 unit PRBCs today and tolerated it well. SPO2 maintained >90% on RA at rest. O2 sats noted to drop to about 87% following exertion, but pt is able to recover quickly. Pain appears well managed with scheduled Tylenol and occasional PRN oxycodone. Dressing to right hip is C/D/I and CMS WNL aside from minimal baseline neuropathy. Telemetry shows a fib with rate from 80s-110s. 2+ pitting edema noted in bilateral LE. LS CTA. He denied nausea and ate 100% of 3 meals today without difficulty. He ambulated in the hallway this evening and was up to chair and BR with assist of 1, belt and walker and tolerated it well. He did become mildly SOB with exertion.
[2023-07-11 19:05] LABS: Hemoglobin* 9.3 gm/dL (13.5-17.5)
[2023-07-12] VITALS (10 sets, daily range): BP systolic 106–130; BP diastolic 62–92; PULSE 58–90; RESP 16–20; TEMP 36.6–36.8; O2SAT 88–99
[2023-07-12] MEDS: DIGOXIN 250 MCG TABLET PO (00:55)
[2023-07-12] MEDS: ACETAMINOPHEN 500 MG TABLET 1000 MG PO ×4 (02:33→21:05)
[2023-07-12 06:47] LABS: HCO3 VBG 25 mmol/L (21-28); PCO2 VBG 41 mmHG (40-50); PO2 VBG 36.5 mmHG (25-47); pH VBG 7.398 (7.32-7.43)
[2023-07-12 06:53] LABS: Basophils Absolute Auto 0.02 K/uL (0.00-0.30); Basophils Percent Auto 0.2 % (0.0-3.0); Eosinophils Absolute Auto 0.01 K/uL (0.00-0.50); Eosinophils Percent Auto 0.1 % (0.0-7.0); Hematocrit 28.6 % (37.0-53.0); Hemoglobin* 9.1 gm/dL (13.5-17.5); Immature Granulocytes Abs Auto 0.02 K/uL (0.00-0.30); Immature Granulocytes Pct Auto 0.2 %; Mean Corpuscular HGB Conc 32 gm/dL (32-36); Mean Corpuscular Hemoglobin 30 pg (26-34); Mean Corpuscular Volume 95 fL (80-100); Monocytes Percent Auto 9.4 % (0.0-11.0); Neutrophils Percent Auto 80.1 % (42.0-72.0); Platelet Count* 171 K/uL (140-440); RDW Coefficient of Variation % 15.3 % (11.5-15.5); White Blood Count* 10.84 K/uL (4.50-11.00)
[2023-07-12 07:03] LABS: Slide Review Reflex No
[2023-07-12 07:15] LABS: Albumin* 3.2 g/dL (3.3-5.0); Chloride* 108 mmol/L (96-114); Sodium* 136 mmol/L (135-149)
[2023-07-12 07:18] LABS: Anion Gap 2 mEq/L (7-15); Blood Urea Nitrogen* 48 mg/dL (7-30); Carbon Dioxide* 26 mmol/L (20-32); Creatinine* 1.8 mg/dL (0.5-1.5); Est. Creatinine Clearance* 26.52; Estimated Glomerular Filt Rate 36 ml/min; Glucose* 93 mg/dL (60-115)
[2023-07-12 07:19] LABS: Calcium* 8.9 mg/dL (8.4-10.6); Phosphorus* 3.3 mg/dL (2.5-4.5)
--- NOTE | 2023-07-12 07:25 | PM.ORPN ---
Subjective Subjective Time Seen by Provider: 07:26 Date Seen: 07/12/23 Principal diagnosis: Status post right hip replacement Interval history: Chris is comfortable this morning. He has been ambulating down the blackwell and can not get in and out of bed on his own. He denies nausea vomiting. He will discharge when medically appropriate. Ortho Exam Narrative Exam Narrative: Alert and oriented x3. Patient is in no acute distress. Converses without labored breathing. Hearing is grossly intact. Ambulates with a walker. Examination of the right hip shows the dressing is clean, dry, intact. Soft tissue edema is present about the hip and thigh. He has pitting edema bilateral lower extremities with excoriations in that area. No erythema or drainage or sign of infection. CMS intact right lower extremity. Calves are nontender. Const Vital Signs, click to edit/add: Vital Signs - 24 hr 07/11/23 07:38 07/11/23 07:59 07/11/23 09:41 Temperature 98.1 F Pulse Rate 96 106 H 116 H Pulse Rate [Left Pulse Oximeter] Respiratory Rate 18 Blood Pressure 99/70 Blood Pressure [Left Arm] Blood Pressure [Right Arm] Pulse Oximetry 90 Oxygen Delivery Method Oxygen Flow Rate 07/11/23 10:06 07/11/23 10:08 07/11/23 10:53 Temperature 98.0 F 98.1 F 97.9 F Pulse Rate 100 92 103 H Pulse Rate [Left Pulse Oximeter] Respiratory Rate 18 18 18 Blood Pressure 112/65 111/62 104/63 Blood Pressure [Left Arm] Blood Pressure [Right Arm] Pulse Oximetry 95 99 96 Oxygen Delivery Method Oxygen Flow Rate 07/11/23 11:00 07/11/23 15:00 07/11/23 15:00 Temperature 97.9 F Pulse Rate Pulse Rate [Left Pulse Oximeter] 85 Respiratory Rate 18 18 18 Blood Pressure Blood Pressure [Left Arm] 104/63 90/70 Blood Pressure [Right Arm] Pulse Oximetry 95 92 92 Oxygen Delivery Method Nasal Cannula Room Air Room Air Oxygen Flow Rate 0.5 07/11/23 15:00 07/11/23 15:00 07/11/23 16:30 Temperature Pulse Rate 78 83 Pulse Rate [Left Pulse Oximeter] Respiratory Rate 18 Blood Pressure Blood Pressure [Left Arm] Blood Pressure [Right Arm] Pulse Oximetry Oxygen Delivery Method Oxygen Flow Rate 07/11/23 19:00 07/11/23 23:00 07/11/23 23:00 Temperature 97.8 F 97.7 F Pulse Rate Pulse Rate [Left Pulse Oximeter] 78 80 Respiratory Rate 20 20 20 Blood Pressure Blood Pressure [Left Arm] 100/63 Blood Pressure [Right Arm] 104/66 Pulse Oximetry 95 95 95 Oxygen Delivery Method Room Air Room Air Room Air Oxygen Flow Rate 07/12/23 00:55 07/12/23 02:41 Temperature 98.0 F Pulse Rate 80 Pulse Rate [Left Pulse Oximeter] 89 Respiratory Rate 18 Blood Pressure Blood Pressure [Left Arm] 116/81 Blood Pressure [Right Arm] Pulse Oximetry 94 Oxygen Delivery Method Room Air Oxygen Flow Rate Assessment and Plan Assessment and plan (1) Status post right hip replacement: Problem details: 07/10/2023Liliana Status: Acute Assessment and Plan: Plan for discharge is today or tomorrow when he meets discharge criteria. DVT prophylaxis upon discharge, will speak with hospitalist regarding best medication and dosage AFib and DVT prophylaxis. Remove dressing 1 week. Observe wound and phone Orthopedics with any questions or concerns Use Ice on operative hip unrestricted. Return to clinic in 1 week with PA for a wound check Return to clinic in 6 weeks with surgeon Minimize narcotic use. Wean off and discontinue soon as possible. Activities as tolerated. No strenuous activity. Attend outpt PT
[2023-07-12 07:31] LABS: Potassium* 4.7 mmol/L (3.6-5.1)
[2023-07-12] MEDS: OXYCODONE 5 MG TABLET PO ×2 (08:25→14:55)
--- NOTE | 2023-07-12 08:48 | PC.NURSE ---
Patient pleasant, alert and oriented. Ambulated with assist of one, walker and gait belt. Dressing clean, dry and intact. Reported pain in right hip ranging from sore and stiff at rest to 4/10 with ambulation. Scheduled Tylenol given.?
[2023-07-12] MEDS: TAMSULOSIN HCL 0.4 MG CAPSULE PO (09:04)
[2023-07-12] MEDS: SENNOSIDES 1 TAB TABLET 2 TAB PO ×2 (09:04→21:05)
[2023-07-12] MEDS: DIGOXIN 125 MCG TABLET PO (09:04)
[2023-07-12] MEDS: SPIRONOLACTONE 25 MG TABLET PO (09:05)
[2023-07-12] MEDS: RIVAROXABAN 10 MG TABLET 15 MG PO (11:53)
--- NOTE | 2023-07-12 14:03 | P.IMPN_ITS ---
Progress Note: A&P Assessment and plan (1) Status post right hip replacement: Problem details: 07/10/2023Liliana Status: Acute (2) ABLA (acute blood loss anemia): Problem details: 12.1-->8.7 -> 9.1 hypotensive, tachycardia AFIB poorly controlled 1 unit PRBCS 07/10 hold dilt, start dig fluid bolus Status: Acute (3) CKD (chronic kidney disease) stage 3, GFR 30-59 ml/min: Problem details: improving creat rate control, blood, fluids Status: Acute (4) Atrial fibrillation: Problem details: Rate controlled (maybe suboptimal? clinic visit was 104-120 bpm), anticoagulated at baseline - holding for now b/c of concern of blood loss -hold dilt. start dig, with 500mcg load am of 07/10 -p.r.n. IV Lopressor for heart rate greater than 110 -restart anticoagulation on 07/11 - patient currently takes 15 mg of Xarelto (renal dosed with hx of AFIB) Status: Acute Subjective Date Seen: 07/12/23 Interval history: Daily Progress Note - Hospital Medicine Day #: 3 POST OP# 2 NAME OF OPERATION: Right total hip arthroplasty SURGEON: Remington Ford MD ANESTHESIA: General ESTIMATED BLOOD LOSS: 800 cc COMPLICATIONS: None OVERNIGHT UPDATES FROM STAFF & MED, LAB, IMAGING UPDATES Quiet night. HR is controlled at rest, with exertion does climb to 140's, r eturns to less than 100 quickly. starting OAC this am. Dilt is on hold. Hgb: 9.1 creat improving 1.8 Objective: alert, working with PT/OT Vitals: see above Lungs: Clear. Cardiac: irregular Disposition/Potential discharge - Likely to return to previous living situation. Today I spent 50minutes seeing the patient, reviewing Expanse and EPIC notes/diagnostics, discussing the care plan with our care time that includes social work, PT/OT, pharmacy, RT, correction and documenting my impressions and plan in the medical record. Exam Const: Vital Signs, click to edit/add: Vital Signs - 24 hr 07/11/23 15:00 07/11/23 15:00 07/11/23 15:00 Temperature Pulse Rate 78 Pulse Rate [Left P ulse Oximeter] Respiratory Rate 18 18 Blood Pressure [Le ft Arm] 90/70 Blood Pressure [Ri ght Arm] Pulse Oximetry 92 92 Oxygen Delivery Me thod Room Air Room Air 07/11/23 15:00 07/11/23 16:30 07/11/23 19:00 Temperature 97.8 F Pulse Rate 83 Pulse Rate [Left P ulse Oximeter] 78 Respiratory Rate 18 20 Blood Pressure [Le ft Arm] Blood Pressure [Ri ght Arm] 104/66 Pulse Oximetry 95 Oxygen Delivery Me thod Room Air 07/11/23 23:00 07/11/23 23:00 07/11/23 23:00 Temperature 97.7 F Pulse Rate 89 Pulse Rate [Left P ulse Oximeter] 80 Respiratory Rate 20 20 Blood Pressure [Le ft Arm] 100/63 Blood Pressure [Ri ght Arm] Pulse Oximetry 95 95 Oxygen Delivery [facility] Room Air Room Air 07/12/23 00:55 07/12/23 02:41 07/12/23 07:00 Temperature 98.0 F Pulse Rate 80 Pulse Rate [Left P ulse Oximeter] 89 Respiratory Rate 18 Blood Pressure [Le ft Arm] 116/81 Blood Pressure [Ri ght Arm] Pulse Oximetry 94 94 Oxygen Delivery [facility] Room Air Room Air 07/12/23 07:00 07/12/23 07:00 07/12/23 09:04 Temperature Pulse Rate 58 L 90 Pulse Rate [Left P ulse Oximeter] 80 Respiratory Rate 18 Blood Pressure [Le ft Arm] 115/92 H Blood Pressure [Ri ght Arm] Pulse Oximetry 94 Oxygen Delivery [facility] Room Air 07/12/23 11:00 Temperature 98.0 F Pulse Rate Pulse Rate [Left P ulse Oximeter] 82 Respiratory Rate 16 Blood Pressure [Le ft Arm] 115/66 Blood Pressure [Ri ght Arm] Pulse Oximetry 96 Oxygen Delivery [facility] Room Air Labs Labs: Laboratory Results - last 24 hr 07/11/23 07/12/23 19:00 06:09 WBC 10.84 RBC 3.00 L Hgb 9.3 L 9.1 L Hct 28.6 L MCV 95 MCH 30 MCHC 32 RDW Coeff of Eva 15.3 Plt Count 171 Neut % (Auto) 80.1 H Lymph % (Auto) 10.0 L Elliott % (Auto) 9.4 Eos % (Auto) 0.1 Baso % (Auto) 0.2 Neut # (Auto) 8.70 H Lymph # (Auto) 1.10 Elliott # (Auto) 1.00 H Eos # (Auto) 0.01 Baso # (Auto) 0.02 Abs Immat Gran (auto) 0.02 Imm/Tot Granulo (auto) 0.2 VBG pH 7.398 VBG pCO2 41 VBG pO2 36.5 VBG HCO3 25 Sodium 136 Potassium 4.7 Chloride 108 Carbon Dioxide 26 Anion Gap 2 L BUN 48 H Creatinine 1.8 H Estimated Creat Clear 26.52 Estimated GFR 36 Glucose 93 Calcium 8.9 Phosphorus 3.3 Albumin 3.2 L
--- NOTE | 2023-07-12 18:33 | PC.NURSE ---
End of shift [id number]- The patient is pleasant and cooperative with cares. VSS on RA. Tele remains in place... afib w/ NVR @ rest. With activity the patient's HR climbs to 140s... was made aware, although the patient reports no symptoms and recovers well. Reported moderate pain intermittently throughout the day.. PRN Oxy given 2x this shift as well as scheduled Tylenol. SBA w/ GB and RW to BR. Ice pack to R hip. 2+ edema noted in bilateral feet, 1+ in BLE. Dressing is CDI. Call light within reach. Plan to dc with family. Tracy WILSON BSN
[2023-07-13] MEDS: OXYCODONE 5 MG TABLET PO (02:05)
[2023-07-13 03:00] VITALS: BP 124/77; PULSE 99; RESP 18; TEMP 36.7
[2023-07-13] MEDS: ACETAMINOPHEN 500 MG TABLET 1000 MG PO ×2 (03:20→10:13)
[2023-07-13 06:58] LABS: Hemoglobin* 9.4 gm/dL (13.5-17.5)
[2023-07-13 07:01] VITALS: PULSE 91
[2023-07-13 07:26] LABS: Chloride* 111 mmol/L (96-114); Potassium* 4.6 mmol/L (3.6-5.1); Sodium* 139 mmol/L (135-149)
[2023-07-13 07:29] LABS: Anion Gap 1 mEq/L (7-15); Carbon Dioxide* 27 mmol/L (20-32); Creatinine* 1.6 mg/dL (0.5-1.5); Est. Creatinine Clearance* 29.84; Estimated Glomerular Filt Rate 41 ml/min
[2023-07-13 07:30] LABS: Blood Urea Nitrogen* 37 mg/dL (7-30); Calcium* 8.6 mg/dL (8.4-10.6); Glucose* 89 mg/dL (60-115)
--- NOTE | 2023-07-13 08:01 | PC.NURSE ---
Patient pleasant, alert and oriented. Ambulates with assist of one, walker and gait belt. Uses call light appropriately. Dressing clean, dry and intact. PRN Oxycodone given at 0200 for pain in right hip rated 4/10. Tachycardic with ambulation.?
[2023-07-13 08:09] VITALS: BP 124/55; PULSE 93; RESP 16; TEMP 36.5; O2SAT 98
[2023-07-13 08:56] VITALS: PULSE 93
[2023-07-13] MEDS: DIGOXIN 125 MCG TABLET PO (08:56)
[2023-07-13] MEDS: SENNOSIDES 1 TAB TABLET 2 TAB PO (08:56)
[2023-07-13] MEDS: RIVAROXABAN 10 MG TABLET 15 MG PO (08:56)
[2023-07-13] MEDS: TAMSULOSIN HCL 0.4 MG CAPSULE PO (08:57)
[2023-07-13] MEDS: SPIRONOLACTONE 25 MG TABLET PO (08:57)
--- NOTE | 2023-07-13 15:58 | P.DS_ITS ---
DS: Providers Provider Date Seen: 07/13/23 Date of admission: 07/11/23 11:22 Primary care physician: Braulio Gonsales MD Admitting Clinician: Ale Contreras MD Consults: 07/10/23 12:52 Consult to Occupational Therapy [CONS] Routine Comment: Reason(s) for OT Consult:: ADLs Prior to Discharge Any Restrictions?:: No Restrictions Comment: Consult to Occupational Therapy [CONS] Routine Comment: Reason(s) for OT Consult:: Evaluate and Treat Any Restrictions?:: No Restrictions Consult to Physical Therapy [CONS] Routine Comment: Ambulate in the blackwell today Reason(s) for PT Consult:: Evaluate and Treat Any Restrictions?:: No Restrictions Comment: Nursing Activity Consult to Physical Therapy [CONS] Routine Comment: Ambulate in the [place]well today Reason(s) for PT Consult:: THR TX Protocol POD#0 Any Restrictions?:: No Restrictions Comment: Nursing Activity: See nursing activity order Consult to Physician [CONS] Routine Comment: Consulting Provider: Hospitalists Has provider been notified: No Consult to Manufacturing Supervisor [CONS] Routine Comment: Reason for Consult:: Discharge Planning Needs Consult to Manufacturing Supervisor [CONS] Routine Comment: Reason for Consult:: Discharge Planning Needs Attending Physician on discharge: [facility] Date of Discharge: 07/13/23 DS: Diagnosis Discharge Diagnosis (1) Status post right hip replacement: Status: Acute Problem details: 07/10/2023, Liliana (2) Atrial fibrillation: Status: Acute Problem details: Rate controlled (maybe suboptimal? clinic visit was 104-120 bpm), anticoagulated at baseline - held initially for ABLA after surgery. resumed 07/11 with Xarelto 15mg daily. Rate control was difficult after surgery with relative hypotension. I transfused him and started Digoxin. I added back his diltiazem at discharge with hold parameters to his caregiver (niece who is an RN) (3) CKD (chronic kidney disease) stage 3, GFR 30-59 ml/min: Status: Acute Problem details: back to baseline at discharge (4) ABLA (acute blood loss anemia): Status: Acute Problem details: 12.1-->8.7 -> 9.1 --> 9.4 1 unit PRBCS 07/10 DS: Summary Hospital Course Hospital Course: FINAL DIAGNOSIS/FOLLOW UP ISSUES: Rate control for atrial fibrillation: Started on digoxin as an inpatient, discharged on this medication. He also has diltiazem at a baseline that was restarted at discharge. Daily checks of his blood pressure and pulse are recommended. Follow-up with PCP for further management BRIEF HOSPITAL COURSE: Patient was admitted for 4 days. Synopsis of acute inpatient issues are outlined above. Chronic medical conditions with notable findings outlined above. his surgery was uncomplicated however he did have a fair amount of blood loss. There was some confusion if he did actually hold his Xarelto as instructed. We had conflicting stories. Either way we noticed a blood loss that started with a hemoglobin of 12.1 and went down to a nilay of 8.7. Given his hypotension and AFib RVR/tachycardia he was transfused 1 unit of packed red blood cells. His hemoglobin improved to 9.4. He became easier to rate control. He was discharged on Sunday the 12 of July with his niece who is an RN. She will monitor his blood pressure and pulse and his pain management with continued recovery. DISCHARGE MEDICATIONS: See Reconciled list - SIGNIFICANT CHANGES: Same amount of diltiazem now with digoxin 125 mcg Q a.m.. Specific instructions to the patient and follow-up are outlined below. REVIEW OF SYSTEMS No new chest pain or dyspnea Pain controlled No voiding difficulties Tolerating diet challenge PHYSICAL EXAM: CONSTITUTIONAL: [place]. Moving better with each day. Baseline. VITAL SIGNS: see record. HEENT: Normocephalic, atraumatic. PERRL, EOMI, conjunctivae pink, no scleral icterus. Ears and nose externally normal. Pharynx normal. NECK: No JVD. No carotid bruit, no thyromegaly, no adenopathy. CHEST: Clear to auscultation bilaterally. HEART: S1 and S2 normal. Edema ABDOMEN: Soft, nontender. Normal bowel sounds. MUSCULOSKELETAL: No gross joint deformity or swelling. NEURO: Cranial nerves intact. Grossly intact. No asymmetric findings. SKIN: No rashes, petechiae, concerning changes PSYCHIATRIC: Mood euthymic. DISPOSITION: Home with family Time spent on discharge 37 minutes. Status at Discharge Functional status at discharge: uses cane/walker Overall status at discharge: patient is progressing back to baseline Time Spent with Patient Time attestation: Total time spent providing and/or coordinating discharge services: Time spent: Greater than 30 minutes Exam Const: Vital Signs, click to edit/add: Vital Signs - 24 hr 07/12/23 19:00 07/12/23 22:57 07/12/23 22:59 Temperature 97.8 F 98.0 F Pulse Rate Pulse Rate [Left P ulse Oximeter] 88 62 Respiratory Rate 19 20 20 Blood Pressure [Le ft Arm] 109/62 106/74 Pulse Oximetry 88 97 97 Oxygen Delivery Me thod Room Air Room Air Room Air 07/12/23 23:00 07/13/23 03:00 07/13/23 07:01 Temperature 98.1 F Pulse Rate 76 91 Pulse Rate [Left P ulse Oximeter] 99 Respiratory Rate 18 Blood Pressure [Le ft Arm] 124/77 Pulse Oximetry Oxygen Delivery Me thod 07/13/23 08:09 07/13/23 08:09 07/13/23 08:56 Temperature 97.7 F Pulse Rate 93 Pulse Rate [Left P ulse Oximeter] 93 Respiratory Rate 16 16 Blood Pressure [Le ft Arm] 124/55 L Pulse Oximetry 98 98 Oxygen Delivery Me thod Room Air Room Air DS: Data Data Completed and Pending Labs on day of discharge: Labs from last 24 hours 07/13/23 06:17 Hgb 9.4 L Sodium 139 Potassium 4.6 Chloride 111 Carbon Dioxide 27 Anion Gap 1 L BUN 37 H Creatinine 1.6 H Estimated Creat Clear 29.84 Estimated GFR 41 Glucose 89 Calcium 8.6 Discharge Plan Discharge Disposition: Home w/ Parent or Adult Date of Admission: 07/11/23 11:22 Attending Provider on Discharge: Ale Contreras Primary Care Provider: Braulio Gonsales Anticipated Discharge Date/Time: 07/13/23 10:52 Discharge Medications: New sennosides [Senna Lax] 8.6 mg Tablet 17.2 mg PO BID PRN (Reason: constipation) Qty: 100 0RF acetaminophen 500 mg capsule 500 - 1,000 mg PO Q6H MDD 4000mg per day PRN (Reason: pain) Qty: 100 0RF oxycodone 5 mg Tablet 2.5 - 5 mg PO Q4-6H MDD 6 tabs per day PRN (Reason: Pain) Qty: 42 0RF Rx Instructions: Minimize. Discontinue as soon as possible digoxin 125 mcg (0.125 mg) Tablet 125 mcg PO DAILY Qty: 30 0RF diltiazem HCl 120 mg capsule,extended release 24hr 120 mg PO DAILY Qty: 30 2RF Continued amlodipine 5 mg tablet 5 mg PO DAILY diltiazem HCl 120 mg capsule,extended release 24hr 120 mg PO DAILY PreserVision AREDS-2 250-90-40-1 mg capsule 1 tab PO BID calcium carbonate-vitamin D3 [Calcium 500 + D] 500 mg-10 mcg (400 unit) tablet 0.5 tab PO DAILY pyridoxine (vitamin B6) 500 mg tablet 500 mg PO DAILY spironolactone 25 mg tablet 25 mg PO DAILY cyanocobalamin (vitamin B-12) 500 mcg tablet 500 mcg PO DAILY Xarelto 15 mg tablet 15 mg PO DAILY tamsulosin 0.4 mg capsule 0.4 mg PO DAILY Discharge Orders: Discharge Order (Routine); Ordered 07/13/23 Ordered By: Ale Contreras Patient Education: Diltiazem (By mouth), Digoxin (By mouth), Oxycodone, Rapid Release (By mouth), Senna (By mouth), Total Hip Replacement (DC), Tachycardia (GEN), Anterior Hip Replacement (DC) Additional Instructions: -Take Michael's blood pressure and pulse every morning. If his top number (systolic) blood pressure is less than 110, hold Diltizem. Michael's HR may go up with activity, as long as it comes back down within a few minutes (goal is 110 or less), then we are good to go. -Give Digoxin every day -F/U with Dr. Gonsales with a log of his blood pressures and pulse readings to make sure these doses are where they need to be. Activity Level: Activity as Tolerated and No strenuous activity Activity Detail: Keep dressing on for 1 week. Dressing is waterproof. May shower. Surgical glue covers the wound. Attend outpatient physical therapy if scheduled. Ice and elevate operative extremity without restriction. Swelling and bruising will worsen within the first week. When swelling occurs, elevate the extremity above heart level several times a day and gently massage/pull soft tissue swelling toward hip. This allows gravity to assist in eliminating the swelling/edema. Ambulate every hour throughout the day. If you drive, Do not drive while taking narcotic pain medication. Do not drink alcohol while taking narcotic pain medication. May drive when safe to do so and have full function of the extremities, this may take 6 weeks or more. Notify Orthopedics with any questions or concerns. ([phone]) Follow Up Appointments: Erin Cruz PA-C [Physician Rd Scientist] - 07/18/23 1:00 pm ([facility] for follow-up.) Braulio Gonsales MD [Primary Care Provider] - 07/23/23 1:30 pm ([facility] for surgery and atrial fibrillation follow-up) Forms: [employer] Info Instructions
--- OUTSIDE RECORDS SUMMARY | 2023-07-20 08:40 | XMS_ITS | Clinical Summary ---
Author Name Unknown Organization [facility] Address [address] [place] [address] Care Team Providers Care Road Mechanic Name Role Phone Elsewhere, Pcp Primary Care Provider Unavailabl e Source Comments Patient records contain information from all sites at [facility]. For routine questions regarding patient records, call [phone] during business hours, M-F 8:00 AM - 5:00 PM Central Time. Record requests for emergency care only can be directed to [phone] at any time.[facility] Allergies Active Allergy Reactions Criticality Noted Date Comments Ibuprofen Angioedema (Reselect Reaction) 01/07 Medications Medication Sig Dispensed Refills Start Date End Date Status amLODIPine (NORVASC) 5 mg tablet Take 1 tablet by mouth daily. 02/22/2022 Active aspirin 325 mg tablet Take 1 tablet by mouth daily. 02/22/2022 Active cyanocobalamin (VITAMIN B12) 100 mcg tablet Take 1 tablet by mouth daily. 02/22/2022 Active pyridoxine, vitamin B6, (VITAMIN B6) 50 mg tablet Take 1 tablet by mouth daily. 02/22/2022 Active MULTIVITAMIN ORAL Take 1 tablet by mouth daily. 02/22/2022 Active calcium carbonate/vitamin D3 (CALCIUM 500 + D ORAL) Take by mouth. 0.5 a capsul every other day Active vitamins A,C,S-jrbn-dovjhf (PRESERVISION AREDS) 7,160 Units-113 mg-100 Units per tablet Take 1 tablet by mouth daily. Active dilTIAZem CD (CARDIZEM CD/CARTIA XT) 120 [...] , 01/29/2017 Medical Devices Implanted Type Area Vat Overhauler Device Identifier Shelf Expiration Date Model / Serial / Lot 125 Left Trigen Intertan 10s Nail Tl-6al-4v Implanted:Qty : 1 on 10/21/2017 at [facility] Other Left: Hip [employer] [id number] 04/02/2023 [id number] Trigen Intertan Subtroch Lag Screw Tl-6al-4v Implanted:Qty : 1 on 10/21/2017 at [facility] Other Left: Hip [employer] 08/29/2025 [id number] / / [id number] Procedures Procedure Name Priority Date/Time Associated Diagnosis Comments BASIC METABOLIC PANEL, S/P Routine 08/15/2022 2:08 PM CDT Atrial Fibrillation Unspecified (HCC) Edema Leg from Last 3 Months or Most Recently Relevant to Health Maintenance Results * (ABNORMAL) Basic Metabolic Panel (08/15/2022 2:08 PM CDT) Potassium, P 4.3 3.6 - 5.2 mmol/L 08/15/2022 4:03 PM CDT NPRG Sodium, P 141 135 - 145 mmol/L 08/15/2022 4:03 PM CDT NPRG Chloride, P 102 98 - 107 mmol/L 08/15/2022 4:03 PM CDT NPRG Bicarbonate, P 29 22 - 29 mmol/L 08/15/2022 4:03 PM CDT NPRG Anion Gap, P 10 7 - 15 08/15/2022 4:03 PM CDT NPRG BUN (Blood Urea Nitrogen), P 28(H) 8 - 24 mg/dL 08/15/2022 4:03 PM CDT NPRG Creatinine 1.47(H) 0.74 - 1.35 mg/dL 08/15/2022 4:03 PM CDT NPRG Estimated GFR (eGFR) 46(L) >=60 mL/min/BSA 08/15/2022 4:03 PM CDT NPRG Comment: Estimated GFR calculated using the 2020 CKD_EPI creatinine equation. Calcium, Total, P 9.6 8.8 - 10.2 mg/dL 08/15/2022 4:03 PM CDT NPRG Glucose, P 106 70 - 140 mg/dL 08/15/2022 4:03 PM CDT NPRG Blood (Blood, Venous) 08/15/2022 2:08 PM CDT 08/15/2022 3:31 PM CDT Aditya Norton M.D. LAB BLOOD ADD-ON [facility] [address] [place] [address], [place] NPRG [facility] [address] [place] [address] from Last 3 Months or Most Recently Relevant to Health Maintenance Advance Directives For more information, please contact: [phone] * Full Code (Latest Code Status on File) Date Activated Date Inactivated Comments 10/25/2017 12:02 AM 11/02/2017 3:56 PM Question Answer Comments Full Code: Not Discussed Due to: Not medically appropriate * Full Code Date Activated Date Inactivated Comments 10/21/2017 12:22 AM 10/24/2017 11:59 PM Question Answer Comments Full Code: Not Discussed Due to: Not medically appropriate Care Teams Road Mechanic Relationship Specialty Start Date End Date Elsewhere, Pcp PCP - General Hazardous Materials Analyst 04/11/19
--- OUTSIDE RECORDS SUMMARY | 2023-07-20 08:40 | XMS_ITS | Clinical Summary ---
Author Name Unknown Organization [facility] Address [facility] [place] [address] Care Team Providers Care Exhibits Curator Name Role Phone Tony Ramos Primary Care Provider [phone] Sni Jones MD Unavailable Allergies Active Allergy Reactions Criticality Noted Date Comments Furosemide Rash Low 11/14/2022 Rash, Itching Ibuprofen Swelling Medium 03/07/2016 Swelling of Lips and numbness Medications Medication Sig Dispensed Refills Start Date End Date Status dutasteride (AVODART) 0.5 MG capsule Take 0.5 mg by mouth daily Active amLODIPine (NORVASC) 5 MG tabletIndications:Hyp ertension Take 5 mg by mouth daily Active apixaban ANTICOAGULANT (ELIQUIS) 5 MG tablet Take 5 mg by mouth 2 times daily Active Calcium Carbonate-Vitamin D 500-5 MG-MCG TABS Take 0.5 tablets by mouth every other day Active diltiazem (CARDIZEM) 120 MG tablet Take 120 mg by mouth 4 times daily Active furosemide (LASIX) 40 MG tablet Take 40 mg by mouth daily Active hydrOXYzine (ATARAX) 10 MG tablet Take 10-20 mg by mouth every 6 hours as needed for itching Active multivitamin w/minerals (THERA-VIT-M) tablet Take 1 tablet by mouth daily Active spironolactone (ALDACTONE) 25 MG tablet Take 25 mg by mouth daily Active Multiple Vitamins-Minerals (PRESERVISION AREDS PO) Take 1 tablet by mouth daily Active pyridOXINE (VITAMIN B-6) 50 MG tablet Take 50 mg by mouth daily Active tamsulosin (FLOMAX) 0.4 MG capsuleIndications:Ri ght inguinal hernia Take 1 capsule (0.4 mg) by mouth daily Begin 4 days before surgery, including morning of surgery. 7 capsule 11/14/2022 Active Social History Tobacco Use Types [...] Respiratory Rate 14 03/07/2016 10:2 0 AM [employer] Oxygen Saturation 97% 11/14/2022 12: 30 PM [...] age to complete this topic Care Teams Exhibits Curator Relationship Specialty Start Date End Date Tony Ramos [facility] [address] [place] [address] PCP - General Family Practice 03/06/16 Sin Jones MD [address] [facility] [address] [place] [address] Assigned Surgical Provider 11/18/22
--- OUTSIDE RECORDS SUMMARY | 2023-07-20 08:40 | XMS_ITS ---
Author Name Unknown Organization [facility] Address [address] [place] [address] Care Team Providers Care Computer Support Technician Name Role Phone Unavailable Unavailable Unavailable Surgery Details Not on file Complications Check Surgery Details section. Procedure Estimated Blood Loss Check Surgery Details section. Procedure Findings Check Surgery Details section. Procedure Specimens Taken Check Surgery Details section.
--- OUTSIDE RECORDS SUMMARY | 2023-07-20 08:40 | XMS_ITS | Referral Summary ---
Author Name Unknown Organization [facility] Address [address] [place] [address] Care Team Providers Care Saw Offbearer Name Role Phone Tony Ramos Primary Care Provider [phone] Sin Jones MD Unavailable [phone] Allergies Active Allergy Reactions Criticality Noted Date [...] Respiratory Rate 14 03/07/2016 10:2 0 AM CLINICAL REVIEW SPECIALIST Oxygen Saturation 97% 11/14/2022 12: 30 PM CDT Inhaled Oxygen Concentration - - Weight 93 kg (205 lb 2 oz) 11/14/2022 1 2:30 PM CDT patient reported Height 171.5 cm (5' 7.5) 11/14/2022 12 :30 PM CDT patient reported Body Mass Index 31.65 11/14/2022 12:30 PM CDT Plan of Treatment Not on file Care Teams Saw Offbearer Relationship Specialty Start Date End Date Tony Ramos [facility] [address] [place] [address] PCP - General Family Practice 03/06/16 Sin Jones MD [address] [facility] [address] [place] [address] Assigned Surgical Provider 11/18/22
--- OUTSIDE RECORDS SUMMARY | 2023-07-20 08:40 | XMS_ITS | Referral Summary ---
Author Name Unknown Organization [facility] Address [address] [place] [address] Care Team Providers Care Automated Logistics Specialist Name Role Phone Elsewhere, Pcp Primary Care Provider Unavailabl e Source Comments Patient records contain information from all sites at [facility]. For routine questions regarding patient records, call [phone] during business hours, M-F 8:00 AM - 5:00 PM Central Time. Record requests for emergency care only can be directed to [phone] at any time.[facility] Allergies Active Allergy Reactions Criticality Noted [...] a capsul every other day Active vitamins A,C,A-usyc-gpuyus (PRESERVISION AREDS) 7,160 Units-113 mg-100 Units per [...] on file Medical Devices Implanted Type Area Cigarette And Filter Chief Inspector Device Identifier Shelf Expiration Date Model / Serial / Lot 125 Left Trigen Intertan 10s Nail Tl-6al-4v Implanted:Qty : 1 on 10/21/2017 at [facility] Other Left: Hip [employer] [id number] 04/02/2023 [id number] / / [id number] Trigen Intertan Subtroch Lag Screw Tl-6al-4v Implanted:Qty : 1 on 10/21/2017 at [facility] Other Left: Hip [employer] 08/29/2025 [id number] / / [id number] Procedures Procedure Name Priority Date/Time Associated Diagnosis [...] CDT Aditya Norton M.D. LAB BLOOD ADD-ON [facility] [address] [place] [address], [place] NPRG [facility] [address] [place] [address] from Last 3 Months or Most Recently Relevant to Health Maintenance Advance Directives For more information, please contact: [phone] * Full Code (Latest Code Status on File) Date Activated Date Inactivated Comments 10/25/2017 12:02 AM 11/02/2017 3:56 PM Question Answer Comments Full Code: Not Discussed Due to: Not medically appropriate * Full Code Date Activated Date Inactivated Comments 10/21/2017 12:22 AM 10/24/2017 11:59 PM Question Answer Comments Full Code: Not Discussed Due to: Not medically appropriate Care Teams Automated Logistics Specialist Relationship Specialty Start Date End Date Elsewhere, Pcp PCP - General Sheep Boner 04/11/19
== END 2023-07-13 12:23 | disposition home or self-care (01) | DRG 470 ==
LOC: OR 11:23 → MEDSURG 07-13 10:53
PROVIDERS: Physician Assistant; Admitting Provider Family Medicine; PCP Family Medicine; Visit Provider Orthopaedic Surgery
PROC: 0SR902Z Replacement of Right Hip Joint with Metal on Polyethylene Synthetic Substitute, Open Approach (ICD-10-PCS; CPT 27130; principal; 2023-07-10 08:15)
DX: M16.11 Unilateral primary osteoarthritis, right hip (principal); D62 Acute posthemorrhagic anemia; G89.18 Other acute postprocedural pain; I48.91 Unspecified atrial fibrillation; Z79.01 Long term (current) use of anticoagulants; I12.9 Hypertensive chronic kidney disease with stage 1 through stage 4 chronic kidney disease, or unspecified chronic kidney disease; N18.30 Chronic kidney disease, stage 3 unspecified; N40.0 Benign prostatic hyperplasia without lower urinary tract symptoms
CPT/HCPCS: 01214; 36415; 36430; 64450; 73501; 76942; 80048; 80069; 82565; 82803; 84132; 84295; 84520; 85018; 85025; 85027; 86850; 86900; 86901; 86922; 93005; 97110; 97116; 97161; 97165; 97530; 97535; 99100; G0378; A9270; C1776; J0330; J0690; J1100; J1170; J2250; J2371; J2405; J2704; J2795; J3010; J3490; J7030; J7120; P9016

== ENCOUNTER 2023-07-23 13:54 | Outpatient (CLI) | payer MEDICARE, BC, SELFPAY ==
--- OUTSIDE RECORDS SUMMARY | 2023-07-23 13:59 | XMS_ITS | Clinical Summary ---
Author Name Unknown Organization [facility] Address [address] [place] [address] Care Team Providers Care White Work Cleaner Name Role Phone Elsewhere, Pcp Primary Care Provider Unavailabl e Source Comments Patient records contain information from all sites at [facility]. For routine questions regarding patient records, call [phone] during business hours, M-F 8:00 AM - 5:00 PM Central Time. Record requests for emergency care only can be directed to [phone] at any time.[facility] Allergies Active Allergy Reactions Criticality Noted Date [...] a capsul every other day Active vitamins A,C,T-hwks-yxacfi (PRESERVISION AREDS) 7,160 Units-113 mg-100 Units per [...] , 01/29/2017 Medical Devices Implanted Type Area Banking Center Manager Device Identifier Shelf Expiration Date Model / Serial / Lot 125 Left Trigen Intertan 10s Nail Tl-6al-4v Implanted:Qty : 1 on 10/21/2017 at [facility] Other Left: Hip [employer] [id number] 04/02/2023 [id number] Trigen Intertan Subtroch Lag Screw Tl-6al-4v Implanted:Qty : 1 on 10/21/2017 at [facility] Other Left: Hip [employer] 08/29/2025 [id number] / / [id number] Procedures Procedure Name Priority Date/Time Associated Diagnosis [...] CDT Aditya Norton M.D. LAB BLOOD ADD-ON [facility] [address] [place] [address], [place] NPRG [facility] [address] [place] [address] from Last 3 Months or Most Recently Relevant to Health Maintenance Advance Directives For more information, please contact: [phone] * Full Code (Latest Code Status on File) Date Activated Date Inactivated Comments 10/25/2017 12:02 AM 11/02/2017 3:56 PM Question Answer Comments Full Code: Not Discussed Due to: Not medically appropriate * Full Code Date Activated Date Inactivated Comments 10/21/2017 12:22 AM 10/24/2017 11:59 PM Question Answer Comments Full Code: Not Discussed Due to: Not medically appropriate Care Teams White Work Cleaner Relationship Specialty Start Date End Date Elsewhere, Pcp PCP - General Assistant Professor Of Business 04/11/19
--- OUTSIDE RECORDS SUMMARY | 2023-07-23 13:59 | XMS_ITS | Referral Summary ---
Author Name Unknown Organization [facility] Address [address] [place] [address] Care Team Providers Care Seafood Specialist Name Role Phone Tony Ramos Primary Care Provider [phone] Sin Jones MD Unavailable Allergies Active Allergy Reactions [...] Respiratory Rate 14 03/07/2016 10:2 0 AM ENVIRONMENTAL RESEARCH PROJECT MANAGER Oxygen Saturation 97% 11/14/2022 12: 30 PM CDT Inhaled Oxygen Concentration - - Weight 93 kg (205 lb 2 oz) 11/14/2022 1 2:30 PM CDT patient reported Height 171.5 cm (5' 7.5) 11/14/2022 12 :30 PM CDT patient reported Body Mass Index 31.65 11/14/2022 12:30 PM CDT Plan of Treatment Not on file Care Teams Seafood Specialist Relationship Specialty Start Date End Date Tony Ramos [facility] [address] [place] [address] PCP - General Family Practice 03/06/16 Sin Jones MD [address] [facility] [address] [place] [address] Assigned Surgical Provider 11/18/22
--- OUTSIDE RECORDS SUMMARY | 2023-07-23 13:59 | XMS_ITS | Clinical Summary ---
Author Name Unknown Organization [facility] Address [facility] [place] [address] Care Team Providers Care Transition Mgr Rn Name Role Phone Tony Ramos Primary Care Provider [phone] Sin Jones MD Unavailable [phone] Allergies Active Allergy Reactions Criticality Noted Date [...] Respiratory Rate 14 03/07/2016 10:2 0 AM CIRCULATION MAN Oxygen Saturation 97% 11/14/2022 12: 30 PM [...] age to complete this topic Care Teams Transition Mgr Rn Relationship Specialty Start Date End Date Tony Ramos [facility] [address] [place] [address] PCP - General Family Practice 03/06/16 Sin Jones MD [address] [facility] [address] [place] [address] Assigned Surgical Provider 11/18/22
--- OUTSIDE RECORDS SUMMARY | 2023-07-23 13:59 | XMS_ITS | Continuity of Care Document ---
Author Name [facility] Organization [facility] Care Team Providers Care Leather Goods I Assembler Name Role Phone [facility] Unavailable Unavailable Problems Combined list of problems from [facility] facilities. It does not include entries that were removed or entered in error. Problem Status Onset Date Problem Type Date of Resolution Comments Source Atrial fibrillation Active Condition [facility] Bilateral hearing loss Active Condition [facility] Hypertension Active Condition [facility] Inguinal hernia Active Condition Mar 29, 2023 Entered By: GILSON TOSCANO Comment: right [facility] Joint pain Active Condition [facility] Long-term current use of anticoagulant Active Condition [facility] Pain of left hip joint Active Condition [facility] Diagnosis: ICD-10-CM Z79.01 half-way (current) use of anticoagulants Active Diagnosis [facility] Diagnosis: ICD-10-CM I48.91 Unspecified atrial fibrillation Active Diagnosis [facility] Diagnosis: ICD-10-CM Z51.81 Encounter for therapeutic drug level monitoring Active Diagnosis [facility] Diagnosis: ICD-10-CM I10 Essential (primary) hypertension Active Diagnosis [facility] Medications Combined list of outpatient medications from [facility] facilities.Medications provided include 1) outpatient medications from the last 15 months, and 2) patient-reported medications. Medication Details Route Status Patient Instructions Prescription Expires Prescription Number Last Dispense Date Ordering Provider Order Date Order Qty Source AMLODIPINE BESYLATE 5MG TAB TAKE ONE TABLET BY MOUTH EVERY DAY FOR BLOOD PRESSURE ORALLY ACTIVE 03/27/2024 [id number] Tanna TOSCANOISTINE N 2022 90 [facility] AMLODIPINE BESYLATE 5MG TAB TAKE ONE TABLET BY MOUTH EVERY DAY FOR BLOOD PRESSURE ORALLY DISCONT INUED 02/23/2023 [id number] Tanna TOSCANO HRISTINE N 2021 90 [facility] APIXABAN 2.5MG TAB TAKE ONE TABLET BY MOUTH EVERY 12 HOURS ORALLY DISCONT INUED 11/24/2023 [id number] CONSTANCE RUIZ 2022 180 [place] [facility] APIXABAN 5MG TAB TAKE ONE TABLET BY MOUTH EVERY 12 HOURS TO PREVENT STROKES ORALLY DISCONT INUED (EDIT) 08/19/2023 [id number] Ghazala MCKEON INAH 2022 180 [facility] APIXABAN 5MG TAB TAKE ONE TABLET BY MOUTH EVERY 12 HOURS TO PREVENT STROKES ORALLY DISCONT INUED 09/15/2022 [id number] Tanna TOSCANO HRISTINE N 2022 60 [facility] CALCIUM 250MG/VITAM IN [...] DAY FOR HEART RHYTHM ORALLY ACTIVE 08/19/2023 [id number] Tanna TOSCANO HRISTINE N 2022 90 [facility] MULTIVIT/OP HTH AREDS2/LUTE IN/ZEAXANTH IN CAP/TAB TAKE 1 TABLET BY MOUTH TWICE A DAY ORALLY 06/07/2023 [id number] ZAIRA CHAPMAN 2022 240 [facility] MULTIVITAMI NS CAP/TAB TAKE ONE TABLET BY MOUTH EVERY DAY ORALLY ACTIVE Tanna TOSCANO HRISTINE N 2021 [facility] PYRIDOXINE HCL 50MG TAB TAKE TWO TABLETS BY MOUTH EVERY DAY ORALLY ACTIVE Tanna TOSCANO HRISTINE N 2022 [facility] RIVAROXABAN 15MG TAB TAKE ONE TABLET BY MOUTH EVERY DAY TO PREVENT STROKES WITH LARGEST MEAL OF THE DAY ORALLY ACTIVE 05/07/2024 [id number] 4 DOROTHYELDAIE Alisa 2023 90 [facility] RIVAROXABAN 15MG TAB TAKE ONE TABLET BY MOUTH EVERY DAY TO PREVENT STROKES WITH LARGEST MEAL OF THE DAY ORALLY DISCONT INUED (EDIT) 03/30/2024 [id number] 4 ERIKA LAMBERT 2022 30 [facility] SAW [place] CAP/TAB TAKE 1 CAPSULE BY MOUTH EVERY DAY ORALLY ACTIVE Tanna TOSCANO N 2021 [facility] Allergies, Adverse Reactions, Alerts Combined list of allergies from [facility] and [facility] facilities. It does not include entries that were removed or entered in error. Substance Category Reaction Severity Reaction type Status Date Reported Comments Source IBUPROFEN Propensity to adverse reactions to drug (finding) Pharyngeal swelling active 2 [facility] Immunizations Combined list of available immunizations from the Department of [facility] and [facility] facilities. Immunization Series Date Given Administered By Site Reaction Lot Number CVX Code Drug Weed Science Research Technician Status Comments Source INFLUENZA, HIGH-DOSE, QUADRIVALENT 2022 JACQUES ULLOA RIGHT DELTO ID [id number] 197 complet ed [facility] COVID-19 (MODERNA), MRNA, LNP-S, PF, 100 MCG/0.5ML DOSE OR 50 MCG/0.25ML DOSE 2020 207 complet ed [facility] COVID-19 (PFIZER), MRNA, LNP-S, PF, 30 MCG/0.3 ML DOSE, ARASH-SUCROSE (AGES 12+ YEARS) 3 2020 217 complet ed [facility] INFLUENZA, HIGH-DOSE, QUADRIVALENT 2020 197 complet ed [facility] COVID-19 (MODERNA), MRNA, LNP-S, PF, 100 MCG/0.5ML DOSE OR 50 MCG/0.25ML DOSE 2020 207 complet ed [facility] COVID-19 (PFIZER), MRNA, LNP-S, PF, 30 MCG/0.3 ML DOSE 2 2020 208 complet ed [facility] COVID-19 (MODERNA), MRNA, LNP-S, PF, 100 MCG/0.5ML DOSE OR 50 MCG/0.25ML DOSE 2020 207 complet ed [facility] COVID-19 (PFIZER), MRNA, LNP-S, PF, 30 MCG/0.3 ML DOSE 1 2020 208 complet ed [facility] TDAP 2019 115 complet ed [facility] INFLUENZA, HIGH DOSE SEASONAL 2016 135 complet ed [facility] TDAP 2015 115 complet ed [facility] PNEUMOCOCCAL CONJUGATE PCV 13 2013 133 complet ed [facility] Results Combined list of recent chemistry, hematology and other laboratory results from Department of Defense and [facility] Affairs, ranging from 15 months to all on record, depending upon the facility. Order Name Results Value Reference Range Date Interpretation Specimen Comments Source CBC LEUKOCYTES [#/VOLUME] IN BLOOD BY AUTOMATED COUNT 8.11 4.0 - 11.0 03/29 Specimen Type: BLOOD No comment entered. Ordering Provider: GILSON TOSCANO Report Released Date/Time: Mar 29, 2023 11:34 AM Reporting Lab: [facility] [address] Performing Lab: [facility] [address] [facility] CBC ERYTHROCYT ES [#/VOLUME] IN BLOOD BY AUTOMATED COUNT 4.12 4.6 - 6.2 03/29 L Specimen Type: BLOOD No comment entered. Ordering Provider: GILSON TOSCANO Report Released Date/Time: Mar 29, 2023 11:34 AM Reporting Lab: [facility] [address] Performing Lab: [facility] [address] [facility] CBC HEMOGLOBIN [MASS/VOLU ME] IN BLOOD 12.3 13.5 - 17.9 03/29 L Specimen Type: BLOOD No comment entered. Ordering Provider: GILSON TOSCANO Report Released Date/Time: Mar 29, 2023 11:34 AM Reporting Lab: [facility] [address] Performing Lab: [facility] [address] [facility] CBC HEMATOCRIT [VOLUME FRACTION] OF BLOOD BY AUTOMATED COUNT 38.6 41 - 54 03/29 L Specimen Type: BLOOD No comment entered. Ordering Provider: GILSON TOSCANO Report Released Date/Time: Mar 29, 2023 11:34 AM Reporting Lab: [facility] [address] Performing Lab: [facility] [address] [facility] CBC MCV [ENTITIC VOLUME] BY AUTOMATED COUNT 93.7 80 - 100 03/29 Specimen Type: BLOOD No comment entered. Ordering Provider: GILSON TOSCANO Report Released Date/Time: Mar 29, 2023 11:34 AM Reporting Lab: [facility] [address] Performing Lab: [facility] [address] [facility] CBC MCH [ENTITIC MASS] BY AUTOMATED COUNT 29.9 27 - 33 03/29 Specimen Type: BLOOD No comment entered. Ordering Provider: GILSON TOSCANO Report Released Date/Time: Mar 29, 2023 11:34 AM Reporting Lab: [facility] [address] Performing Lab: [facility] [address] [facility] CBC MCHC [MASS/VOLU ME] BY AUTOMATED COUNT 31.9 32.0 - 37.5 03/29 L Specimen Type: BLOOD No comment entered. Ordering Provider: GILSON TOSCANO Report Released Date/Time: Mar 29, 2023 11:34 AM Reporting Lab: [facility] [address] Performing Lab: [facility] [address] [facility] CBC PLATELETS [#/VOLUME] IN BLOOD BY AUTOMATED COUNT 216 150 - 400 03/29 Specimen Type: BLOOD No comment entered. Ordering Provider: GILSON TOSCANO Report Released Date/Time: Mar 29, 2023 11:34 AM Reporting Lab: [facility] [address] Performing Lab: [facility] [address] [facility] CBC PLATELET MEAN VOLUME [ENTITIC VOLUME] IN BLOOD BY AUTOMATED COUNT 10.1 7.4 - 10.4 03/29 Specimen Type: BLOOD No comment entered. Ordering Provider: GILSON TOSCANO Report Released Date/Time: Mar 29, 2023 11:34 AM Reporting Lab: [facility] [address] Performing Lab: [facility] [address] [facility] CBC ERYTHROCYT E DISTRIBUTI ON WIDTH [RATIO] BY AUTOMATED COUNT 14.6 11.5 - 14.5 03/29 H Specimen Type: BLOOD No comment entered. Ordering Provider: GILSON TOSCANO Report Released Date/Time: Mar 29, 2023 11:34 AM Reporting Lab: [facility] [address] Performing Lab: [facility] [address] [facility] COMPREHE NSIVE METABOLI C PANEL+MG CREATININE [MASS/VOLU ME] IN SERUM OR PLASMA 1.4 0.7 - 1.2 03/29 H Specimen Type: PLASMA No comment entered. Ordering Provider: GILSON TOSCANO Report Released Date/Time: Mar 29, 2023 11:34 AM Reporting Lab: [facility] [address] Performing Lab: [facility] [address] [facility] COMPREHE NSIVE METABOLI C PANEL+MG UREA NITROGEN [MASS/VOLU ME] IN SERUM OR PLASMA 31 8 - 26 03/29 H Specimen Type: PLASMA No comment entered. Ordering Provider: GILSON TOSCANO Report Released Date/Time: Mar 29, 2023 11:34 AM Reporting Lab: [facility] [address] Performing Lab: [facility] [address] [facility] COMPREHE NSIVE METABOLI C PANEL+MG GLUCOSE [MASS/VOLU ME] IN SERUM OR PLASMA 94 70 - 100 03/29 Specimen Type: PLASMA No comment entered. Ordering Provider: GILSON TOSCANO N Report Released Date/Time: Mar 29, 2023 11:34 AM Reporting Lab: [facility] [address] Performing Lab: [facility] [address] [facility] COMPREHE NSIVE METABOLI C PANEL+MG SODIUM [MOLES/VOL UME] IN SERUM OR PLASMA 138 136 - 145 03/29 Specimen Type: PLASMA No comment entered. Ordering Provider: GILSON TOSCANO Report Released Date/Time: Mar 29, 2023 11:34 AM Reporting Lab: [facility] [address] Performing Lab: [facility] [address] [facility] COMPREHE NSIVE METABOLI C PANEL+MG POTASSIUM [MOLES/VOL UME] IN SERUM OR PLASMA 4.3 3.5 - 5.1 03/29 Specimen Type: PLASMA No comment entered. Ordering Provider: GILSON TOSCANO Report Released Date/Time: Mar 29, 2023 11:34 AM Reporting Lab: [facility] [address] Performing Lab: [facility] [address] [facility] COMPREHE NSIVE METABOLI C PANEL+MG CHLORIDE [MOLES/VOL UME] IN SERUM OR PLASMA 105 98 - 107 03/29 Specimen Type: PLASMA No comment entered. Ordering Provider: GILSON TOSCANO Report Released Date/Time: Mar 29, 2023 11:34 AM Reporting Lab: [facility] [address] Performing Lab: [facility] [address] [facility] COMPREHE NSIVE METABOLI C PANEL+MG CARBON DIOXIDE, TOTAL [MOLES/VOL UME] IN SERUM OR PLASMA 23 - 29 03/29 Specimen Type: PLASMA No comment entered. Ordering Provider: GILSON TOSCANO Report Released Date/Time: Mar 29, 2023 11:34 AM Reporting Lab: [facility] [address] Performing Lab: [facility] [address] [facility] COMPREHE NSIVE METABOLI C PANEL+MG CALCIUM [MASS/VOLU ME] IN SERUM OR PLASMA 9.3 8.4 - 10.2 03/29 Specimen Type: PLASMA No comment entered. Ordering Provider: GILSON TOSCANO Report Released Date/Time: Mar 29, 2023 11:34 AM Reporting Lab: [facility] [address] Performing Lab: [facility] [address] [facility] COMPREHE NSIVE METABOLI C PANEL+MG PROTEIN [MASS/VOLU ME] IN SERUM OR PLASMA 7.1 6.0 - 8.3 03/29 Specimen Type: PLASMA No comment entered. Ordering Provider: GILSON TOSCANO N Report Released Date/Time: Mar 29, 2023 11:34 AM Reporting Lab: [facility] [address] Performing Lab: [facility] [address] [facility] COMPREHE NSIVE METABOLI C PANEL+MG ALBUMIN [MASS/VOLU ME] IN SERUM OR PLASMA 3.9 3.5 - 5.2 03/29 Specimen Type: PLASMA No comment entered. Ordering Provider: GILSON TOSCANO Report Released Date/Time: Mar 29, 2023 11:34 AM Reporting Lab: [facility] [address] Performing Lab: [facility] [address] [facility] COMPREHE NSIVE METABOLI C PANEL+MG BILIRUBIN. TOTAL [MASS/VOLU ME] IN SERUM OR PLASMA 0.4 0.2 - 1.2 03/29 Specimen Type: PLASMA No comment entered. Ordering Provider: GILSON TOSCANO N Report Released Date/Time: Mar 29, 2023 11:34 AM Reporting Lab: [facility] [address] Performing Lab: [facility] [address] [facility] COMPREHE NSIVE METABOLI C PANEL+MG MAGNESIUM [MASS/VOLU ME] IN SERUM OR PLASMA 2.1 1.6 - 2.6 03/29 Specimen Type: PLASMA No comment entered. Ordering Provider: GILSON TOSCANO N Report Released Date/Time: Mar 29, 2023 11:34 AM Reporting Lab: [facility] [address] Performing Lab: [facility] [address] [facility] COMPREHE NSIVE METABOLI C PANEL+MG ANION GAP IN SERUM OR PLASMA 10 5 - 15 03/29 Specimen Type: PLASMA No comment entered. Ordering Provider: GILSON TOSCANO Report Released Date/Time: Mar 29, 2023 11:34 AM Reporting Lab: [facility] [address] Performing Lab: [facility] [address] [facility] COMPREHE NSIVE METABOLI C PANEL+MG ALKALINE PHOSPHATAS E [ENZYMATIC ACTIVITY/V OLUME] IN SERUM OR PLASMA 99 40 - 150 03/29 Specimen Type: PLASMA No comment entered. Ordering Provider: GILSON TOSCANO Report Released Date/Time: Mar 29, 2023 11:34 AM Reporting Lab: [facility] [address] Performing Lab: [facility] [address] [facility] COMPREHE NSIVE METABOLI C PANEL+MG ALANINE AMINOTRANS FERASE [ENZYMATIC ACTIVITY/V OLUME] IN SERUM OR PLASMA 16 <55 - 55 03/29 Specimen Type: PLASMA No comment entered. Ordering Provider: GISLON TOSCANO Report Released Date/Time: Mar 29, 2023 11:34 AM Reporting Lab: [facility] [address] Performing Lab: [facility] [address] [facility] COMPREHE NSIVE METABOLI C PANEL+MG ASPARTATE AMINOTRANS FERASE [ENZYMATIC ACTIVITY/V OLUME] IN SERUM OR PLASMA 42 <34 - 34 03/29 H Specimen Type: PLASMA No comment entered. Ordering Provider: GILSON TOSCANO Report Released Date/Time: Mar 29, 2023 11:34 AM Reporting Lab: [facility] [address] Performing Lab: [facility] [address] [facility] COMPREHE NSIVE METABOLI C PANEL+MG GLOMERULAR FILTRATION RATE/1.73 SQ M.PREDICTE D [VOLUME RATE/AREA] IN SERUM, PLASMA OR BLOOD BY CREATININE -BASED FORMULA (CKD-EPI 2020) 48 60 03/29 L Specimen Type: PLASMA No comment entered. Ordering Provider: GILSON TOSCANO Report Released Date/Time: Mar 29, 2023 11:34 AM Reporting Lab: [facility] [address] Performing Lab: [facility] [address] [facility] HEMOGLOB IN A1C HEMOGLOBIN [...] Mar 29, 2023 11:58 AM Reporting Lab: [facility] [address] Performing Lab: [facility] [address] [facility] CREATINI NE(INCLU PETAR EGFR) CREATININE [MASS/VOLU ME] IN SERUM OR PLASMA 1.8 0.7 - 1.2 11/22 H Specimen Type: PLASMA No comment entered. Ordering Provider: ISAAK GUZMAN Report Released Date/Time: Sep 27, 2022 10:47 AM Reporting Lab: [facility] [address] Performing Lab: [facility] [address] [facility] CREATINI NE(INCLU PETAR EGFR) GLOMERULAR FILTRATION RATE/1.73 SQ M.PREDICTE D [VOLUME RATE/AREA] IN SERUM, PLASMA OR BLOOD BY CREATININE -BASED FORMULA (CKD-EPI 2020) 36 60 11/22 L Specimen Type: PLASMA No comment entered. Ordering Provider: ISAAK GUZMAN Report Released Date/Time: Sep 27, 2022 10:47 AM Reporting Lab: [facility] [address] Performing Lab: [facility] [address] [facility] ALT/SGPT ALANINE AMINOTRANS FERASE [ENZYMATIC ACTIVITY/V OLUME] IN SERUM OR PLASMA 24 09/20 Specimen Type: PLASMA No comment entered. Ordering Provider: DEMETRIO MCKEON Report Released Date/Time: August 18, 2022 03:57 PM Reporting Lab: [facility] [address] Performing Lab: [facility] [address] [place] [facility] AST/SGOT ASPARTATE AMINOTRANS FERASE [ENZYMATIC ACTIVITY/V OLUME] IN SERUM OR PLASMA 48 09/20 H Specimen Type: PLASMA No comment entered. Ordering Provider: DEMETRIO MCKEON Report Released Date/Time: August 18, 2022 03:57 PM Reporting Lab: [facility] [address] Performing Lab: [facility] [address] [place] [facility] CBC LEUKOCYTES [#/VOLUME] IN BLOOD BY AUTOMATED COUNT 7.11 4.0 - 11.0 09/20 Specimen Type: BLOOD No comment entered. Ordering Provider: DEMETRIO MCKEON Report Released Date/Time: August 18, 2022 03:57 PM Reporting Lab: [facility] [address] Performing Lab: [facility] [address] [place] [facility] CBC ERYTHROCYT ES [#/VOLUME] IN BLOOD BY AUTOMATED COUNT 3.95 4.6 - 6.2 09/20 L Specimen Type: BLOOD No comment entered. Ordering Provider: DEMETRIO MCKEON Report Released Date/Time: August 18, 2022 03:57 PM Reporting Lab: [facility] [address] Performing Lab: [facility] [address] [place] [facility] CBC HEMOGLOBIN [MASS/VOLU ME] IN BLOOD 12.1 13.5 - 17.9 09/20 L Specimen Type: BLOOD No comment entered. Ordering Provider: DEMETRIO MCKEON Report Released Date/Time: August 18, 2022 03:57 PM Reporting Lab: [facility] [address] Performing Lab: [facility] [address] [place] [facility] CBC HEMATOCRIT [VOLUME FRACTION] OF BLOOD BY AUTOMATED COUNT 37.5 41 - 54 09/20 L Specimen Type: BLOOD No comment entered. Ordering Provider: DEMETRIO MCKEON Report Released Date/Time: August 18, 2022 03:57 PM Reporting Lab: [facility] [address] Performing Lab: [facility] [address] [place] [facility] CBC MCV [ENTITIC VOLUME] BY AUTOMATED COUNT 94.9 80 - 100 09/20 Specimen Type: BLOOD No comment entered. Ordering Provider: DEMETRIO MCKEON Report Released Date/Time: August 18, 2022 03:57 PM Reporting Lab: [facility] [address] Performing Lab: [facility] [address] [place] [facility] CBC MCH [ENTITIC MASS] BY AUTOMATED COUNT 30.6 27 - 33 09/20 Specimen Type: BLOOD No comment entered. Ordering Provider: DEMETRIO MCKEON Report Released Date/Time: August 18, 2022 03:57 PM Reporting Lab: [facility] [address] Performing Lab: [facility] [address] [place] [facility] CBC MCHC [MASS/VOLU ME] BY AUTOMATED COUNT 32.3 32.0 - 37.5 09/20 Specimen Type: BLOOD No comment entered. Ordering Provider: DEMETRIO MCKEON Report Released Date/Time: August 18, 2022 03:57 PM Reporting Lab: [facility] [address] Performing Lab: [facility] [address] [place] [facility] CBC PLATELETS [#/VOLUME] IN BLOOD BY AUTOMATED COUNT 237 150 - 400 09/20 Specimen Type: BLOOD No comment entered. Ordering Provider: DEMETRIO MCKEON Report Released Date/Time: August 18, 2022 03:57 PM Reporting Lab: [facility] [address] Performing Lab: [facility] [address] [place] [facility] CBC PLATELET MEAN VOLUME [ENTITIC VOLUME] IN BLOOD BY AUTOMATED COUNT 9.4 7.4 - 10.4 09/20 Specimen Type: BLOOD No comment entered. Ordering Provider: DEMETRIO MCKEON Report Released Date/Time: August 18, 2022 03:57 PM Reporting Lab: [facility] [address] Performing Lab: [facility] [address] [place] [facility] CBC ERYTHROCYT E DISTRIBUTI ON WIDTH [RATIO] BY AUTOMATED COUNT 13.9 11.5 - 14.5 09/20 Specimen Type: BLOOD No comment entered. Ordering Provider: DEMETRIO MCKEON Report Released Date/Time: August 18, 2022 03:57 PM Reporting Lab: [facility] [address] Performing Lab: [facility] [address] [facility] CREATINI NE(INCLU PETAR EGFR) CREATININE [MASS/VOLU ME] IN SERUM OR PLASMA 1.5 0.7 - 1.2 09/20 H Specimen Type: PLASMA No comment entered. Ordering Provider: DEMETRIO MCKEON Report Released Date/Time: August 18, 2022 03:57 PM Reporting Lab: [facility] [address] Performing Lab: [facility] [address] [place] [facility] CREATINI NE(INCLU PETAR EGFR) GLOMERULAR FILTRATION RATE/1.73 SQ M.PREDICTE D [VOLUME RATE/AREA] IN SERUM, PLASMA OR BLOOD BY CREATININE -BASED FORMULA (CKD-EPI 2020) 45 09/20 L Specimen Type: PLASMA No comment entered. Ordering Provider: DEMETRIO MCKEON Report Released Date/Time: August 18, 2022 03:57 PM Reporting Lab: [facility] [address] Performing Lab: [facility] [address] [place] [facility] URINALYS IS COLOR OF URINE LIGHT-YE LLOW 02/22 Specimen Type: URINE No comment entered. Ordering Provider: GILSON TOSCANO Report Released Date/Time: Feb 22, 2022 03:18 PM Reporting Lab: [facility] [address] Performing Lab: [facility] [address] [facility] URINALYS IS SPECIFIC GRAVITY OF URINE 1.025 1.003 - 1.035 02/22 Specimen Type: URINE No comment entered. Ordering Provider: GILSON TOSCANO Report Released Date/Time: Feb 22, 2022 03:18 PM Reporting Lab: [facility] [address] Performing Lab: [facility] [address] [facility] URINALYS IS BILIRUBIN. TOTAL [PRESENCE] IN URINE BY TEST STRIP NEGATIVE 02/22 Specimen Type: URINE No comment entered. Ordering Provider: GILSON TOSCANO Report Released Date/Time: Feb 22, 2022 03:18 PM Reporting Lab: [facility] [address] Performing Lab: [facility] [address] [facility] URINALYS IS KETONES [MASS/VOLU ME] IN URINE BY TEST STRIP NEGATIVE 02/22 Specimen Type: URINE No comment entered. Ordering Provider: GILSON TOSCANO Report Released Date/Time: Feb 22, 2022 03:18 PM Reporting Lab: [facility] [address] Performing Lab: [facility] [address] [facility] URINALYS IS GLUCOSE [MASS/VOLU ME] IN URINE BY TEST STRIP NEGATIVE 02/22 Specimen Type: URINE No comment entered. Ordering Provider: GILSON TOSCANO Report Released Date/Time: Feb 22, 2022 03:18 PM Reporting Lab: [facility] [address] Performing Lab: [facility] [address] [facility] URINALYS IS PROTEIN [MASS/VOLU ME] IN URINE BY TEST STRIP 50 02/22 Specimen Type: URINE No comment entered. Ordering Provider: GILSON TOSCANO Report Released Date/Time: Feb 22, 2022 03:18 PM Reporting Lab: [facility] [address] Performing Lab: [facility] [address] [facility] URINALYS IS PH OF URINE BY TEST STRIP 6.5 5.0 - 8.0 02/22 Specimen Type: URINE No comment entered. Ordering Provider: GILSON TOSCANO Report Released Date/Time: Feb 22, 2022 03:18 PM Reporting Lab: [facility] [address] Performing Lab: [facility] [address] [facility] URINALYS IS LEUKOCYTES [#/AREA] IN URINE SEDIMENT BY MICROSCOPY HIGH POWER FIELD NONE SEEN 0 - 7 02/22 Specimen Type: URINE No comment entered. Ordering Provider: GILSON TOSCANO Report Released Date/Time: Feb 22, 2022 03:18 PM Reporting Lab: [facility] [id number] Performing Lab: [facility] [address] [facility] URINALYS IS BACTERIA [PRESENCE] IN URINE SEDIMENT BY LIGHT MICROSCOPY NONE SEEN 02/22 Specimen Type: URINE No comment entered. Ordering Provider: GILSON TOSCANO Report Released Date/Time: Feb 22, 2022 03:18 PM Reporting Lab: [facility] [id number] Performing Lab: [facility] [address] [facility] URINALYS IS ERYTHROCYT ES [#/AREA] IN URINE SEDIMENT BY MICROSCOPY HIGH POWER FIELD 2 0 - 3 02/22 Specimen Type: URINE No comment entered. Ordering Provider: GILSON TOSCANO Report Released Date/Time: Feb 22, 2022 03:18 PM Reporting Lab: [facility] [phone] Performing Lab: [facility] [address] [facility] URINALYS IS APPEARANCE OF URINE CLEAR 02/22 Specimen Type: URINE No comment entered. Ordering Provider: GILSON TOSCANO Report Released Date/Time: Feb 22, 2022 03:18 PM Reporting Lab: [facility] [id number] Performing Lab: [facility] [id number] [facility] URINALYS IS EPITHELIAL CELLS.SQUA MOUS [#/AREA] IN URINE SEDIMENT BY MICROSCOPY HIGH POWER FIELD NONE SEEN 02/22 Specimen Type: URINE No comment entered. Ordering Provider: GILSON TOSCANO Report Released Date/Time: Feb 22, 2022 03:18 PM Reporting Lab: [facility] [phone] Performing Lab: [facility] [address] [facility] URINALYS IS HEMOGLOBIN [PRESENCE] IN URINE BY TEST STRIP NEGATIVE 02/22 Specimen Type: URINE No comment entered. Ordering Provider: IGLSON TOSCANO Report Released Date/Time: Feb 22, 2022 03:18 PM Reporting Lab: [facility] [phone] Performing Lab: [facility] [address] [facility] URINALYS IS NITRITE [PRESENCE] IN URINE BY TEST STRIP NEGATIVE 02/22 Specimen Type: URINE No comment entered. Ordering Provider: GILSON TOSCANO Report Released Date/Time: Feb 22, 2022 03:18 PM Reporting Lab: [facility] [phone] Performing Lab: [facility] [address] [facility] URINALYS IS LEUKOCYTE ESTERASE [PRESENCE] IN URINE BY TEST STRIP NEGATIVE 02/22 Specimen Type: URINE No comment entered. Ordering Provider: GILSON TOSCANO Report Released Date/Time: Feb 22, 2022 03:18 PM Reporting Lab: [facility] [phone] Performing Lab: [facility] [address] [facility] TSH W/REFLEX TO FREE T4 THYROTROPI N [UNITS/VOL UME] IN SERUM OR PLASMA 2.64 0.35 - 4.94 02/22 Specimen Type: PLASMA No comment entered. Ordering Provider: GILSON TOSCANO Report Released Date/Time: Feb 22, 2022 03:18 PM Reporting Lab: [facility] [address] Performing Lab: [facility] [address] [facility] Vital Signs Combined list of inpatient and outpatient Vital Signs from Department of Defense and Veterans Affairs, ranging from 12 months to all on record, depending upon the facility. Vital Sign Value Date Comments Source Encounters Combined list of: 1) Encounters from Department of Veterans Affairs facilities going back up to thelast 18 months. 2) Encounters from the Department of Defense facilities going back up to 280 months. Location Location Details Encounter Type Encounter Number Reason For Visit Attending Provider ADM Date DC Date Status Disposition Source [facility] Outpatient Encounter [id number] Diagnos is: ICD-10- CM I10 Essenti al (primar y) hyperte nsion<b r/> NSUBUGA,CH RISTINE N 02/22 [facility] [place] [facility] Outpatient Encounter [id number] 02/22 [place] [facility] [place] [facility] [place] Encounter [id number] 02/22 [place] [facility] [place] [facility] [place] Encounter [id number] 04/06 [place] [facility] [place] [facility] Out[place] Encounter [id number] 06/02 [place] [facility] Outpatient Encounter [id number] 07/12 [facility] [place] [facility] Outpatient Encounter [id number] 07/12 [place] [facility] [place] [facility] Outpatient Encounter [id number] 08/11 [place] [facility] [place] [facility] Out[place] Encounter [id number] 08/14 [place] [facility] [place] [facility] Out[place] Encounter [id number] 08/15 [place] [facility] [place] [facility] Out[place] Encounter [id number] 08/16 [place] [facility] [place] [facility] QNHP OL DIG ASSMT&MGMT 21+ [id number] Diagnos is: ICD-10- CM 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
JAC MCKEON 08/18 [place] [facility] [place] [facility] PRO PHONE CALL 11-20 MIN [id number] Diagnos is: ICD-10- CM Z51.81 Encount er for therape utic drug level monitor ing<br/ > JOSH GUZMAN 09/27 [place] [facility] [place] [facility] TTE W/DOPPLER COMPLETE [id number] Diagnos is: ICD-10- CM I48.91 Unspeci fied atrial fibrill ation<b r/> DENIZ HUGHESI 10/11 [place] [facility] [place] [facility] Outpatient Encounter [id number] ANÍBAL HALL 10/23 [place] [facility] [place] [facility] PRO PHONE CALL 11-20 MIN [id number] Diagnos is: ICD-10- CM Z79.01 half-way () use of anticoa gulants
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
MICHEL LAMBERT 03/30 [place] [facility] [place] [facility] MTMS BY PHARM ADDL 15 MIN [id number] Diagnos is: ICD-10- CM Z79.01 half-way (curren t) use of anticoa gulants
Lizzie DE LA CRUZ 05/07 [place] [facility] Social History Combined list of available smoking, tobacco, and other social history from Department of Defense and Veterans Affairs facilities. Social History Type Response Date Comment Sourc e Tobacco smoking status [facility] FORMER USER 03/29/2023 [facility] of [facility]/29[facility]2023 [facility] History of tobacco use [facility] FORMER USER 02/22/2022 [facility]
--- OUTSIDE RECORDS SUMMARY | 2023-07-23 13:59 | XMS_ITS | Referral Summary ---
Author Name Unknown Organization [facility] Address [address] [place] [address] Care Team Providers Care Spare Fixer Name Role Phone Elsewhere, Pcp Primary Care Provider Unavailabl e Source Comments Patient records contain information from all sites at [facility]. For routine questions regarding patient records, call [phone] during business hours, M-F 8:00 AM - 5:00 PM Central Time. Record requests for emergency care only can be directed to [phone] at any time.[facility] Allergies Active Allergy Reactions Criticality Noted [...] a capsul every other day Active vitamins A,C,Y-hsvu-mssiex (PRESERVISION AREDS) 7,160 Units-113 mg-100 Units per [...] on file Medical Devices Implanted Type Area Receivables Specialist Device Identifier Shelf Expiration Date Model / Serial / Lot 125 Left Trigen Intertan 10s Nail Tl-6al-4v Implanted:Qty : 1 on 10/21/2017 at [facility] Other Left: Hip [employer] [id number] 04/02/2023 [id number] / / [id number] Trigen Intertan Subtroch Lag Screw Tl-6al-4v Implanted:Qty : 1 on 10/21/2017 at [facility] Other Left: Hip [employer] 08/29/2025 [id number] / / [id number] Procedures Procedure Name Priority Date/Time Associated Diagnosis [...] CDT Aditya Norton M.D. LAB BLOOD ADD-ON [facility] [address] [place] [address], [place] [facility] [address] [place] [address] from Last 3 Months or Most Recently Relevant to Health Maintenance Advance Directives For more information, please contact: [phone] * Full Code (Latest Code Status on File) Date Activated Date Inactivated Comments 10/25/2017 12:02 AM 11/02/2017 3:56 PM Question Answer Comments Full Code: Not Discussed Due to: Not medically appropriate * Full Code Date Activated Date Inactivated Comments 10/21/2017 12:22 AM 10/24/2017 11:59 PM Question Answer Comments Full Code: Not Discussed Due to: Not medically appropriate Care Teams Spare Fixer Relationship Specialty Start Date End Date Elsewhere, Pcp PCP - General Smelting Engineer 04/11/19
--- OUTSIDE RECORDS SUMMARY | 2023-07-23 13:59 | XMS_ITS ---
Author Name Unknown Organization [facility] Address [address] [place] [address] Care Team Providers Care Dry Box Tender Name Role Phone Unavailable Unavailable Unavailable Surgery Details Not on file Complications Check Surgery Details section. Procedure Estimated Blood Loss Check Surgery Details section. Procedure Findings Check Surgery Details section. Procedure Specimens Taken Check Surgery Details section.
== END 2023-07-23 13:55 | disposition home or self-care (01) ==
PROVIDERS: PCP Family Medicine; Visit Provider Family Medicine
DX: D62 Acute posthemorrhagic anemia (principal); Z96.641 Presence of right artificial hip joint
CPT/HCPCS: 80048; 85025

== ENCOUNTER 2023-09-25 10:37 | Outpatient (CLI) | payer MEDICARE, BC, SELFPAY ==
--- OUTSIDE RECORDS SUMMARY | 2023-09-25 10:39 | XMS_ITS | Continuity of Care Document ---
Author Name [facility] Organization [facility] Care Team Providers Care Performance Engineer Name Role Phone [facility] Unavailable Unavailable Problems Combined list of problems from Department [facility] and [facility] facilities. It does not include entries that were removed or entered in error. Problem Status Onset Date Problem Type Date of Resolution Comments Source Atrial fibrillation Active Condition [facility] Bilateral hearing loss Active Condition [facility] Hypertension Active Condition [facility] Inguinal hernia Active Condition Mar 29, 2023 Entered By: GILSON TOSCANO Comment: right [facility] Joint pain Active Condition [facility] Long-term current use of anticoagulant Active Condition [facility] Pain of left hip joint Active Condition [facility] Diagnosis: ICD-10-CM Z79.01 FPC (current) use of anticoagulants Active Diagnosis [facility] Diagnosis: ICD-10-CM I48.91 Unspecified atrial fibrillation Active Diagnosis [facility] Diagnosis: ICD-10-CM Z51.81 Encounter for therapeutic drug level monitoring Active Diagnosis [facility] Medications Combined list of outpatient medications from [facility] and [facility] facilities.Medications provided include 1) outpatient medications from the last 15 months, and 2) patient-reported medications. Medication Details Route Status Patient Instructions Prescription Expires Prescription Number Last Dispense Date Ordering Provider Order Date Order Qty Source AMLODIPINE BESYLATE 5MG TAB TAKE ONE TABLET BY MOUTH EVERY DAY FOR BLOOD PRESSURE ORAL ACTIVE 03/27/2024 [id number] Tanna TOSCANOISTINE N 2022 90 [facility] AMLODIPINE BESYLATE 5MG TAB TAKE ONE TABLET BY MOUTH EVERY DAY FOR BLOOD PRESSURE ORAL DISCONT INUED 02/23/2023 [id number] Tanna TOSCANO HRISTINE N 2021 90 [facility] APIXABAN 2.5MG TAB TAKE ONE TABLET BY MOUTH EVERY 12 HOURS ORAL DISCONT INUED 11/24/2023 [id number] JOSEPHCONSTANCE AJ Alisa 2022 [facility] APIXABAN 5MG TAB TAKE ONE TABLET BY MOUTH EVERY 12 HOURS TO PREVENT STROKES ORAL DISCONT INUED (EDIT) 08/19/2023 [id number] Ghazala MCKEON INAH 2022 [facility] APIXABAN 5MG TAB TAKE ONE TABLET BY MOUTH EVERY 12 HOURS TO PREVENT STROKES ORAL DISCONT INUED 09/15/2022 [id number] NSUBCLARISSAC HRISTINE N 2022 60 [facility] CALCIUM 250MG/VITAM IN D 125UNT TAB TAKE ONE TABLET BY MOUTH EVERY DAY ORAL ACTIVE NSUBCLARISSAC HRISTINE N 2022 [facility] CYANOCOBALA MIN 500MCG TAB TAKE ONE TABLET BY MOUTH EVERY DAY ORAL ACTIVE NSCHRISTINAUGAC HRISTINE N 2022 [facility] DILTIAZEM (EQV-TIAZAC AB4) 120MG 24HR CAP TAKE ONE CAPSULE BY MOUTH EVERY DAY FOR HEART RHYTHM ORAL ACTIVE 08/18/2024 [id number] NSUBUGAC HRISTINE N 2023 90 [facility] DILTIAZEM (EQV-TIAZAC AB4) 120MG 24HR CAP TAKE ONE CAPSULE BY MOUTH EVERY DAY FOR HEART RHYTHM ORAL DISCONT INUED 08/19/2023 [id number] NSUBUGAC HRISTINE N 2022 90 [facility] MULTIVIT/OP HTH AREDS2/LUTE IN/ZEAXANTH IN CAP/TAB TAKE 1 TABLET BY MOUTH TWICE A DAY ORAL 06/07/2023 [id number] 4 ZAIRA CHAPMAN 2022 [address] [facility] MULTIVITAMI NS CAP/TAB TAKE ONE TABLET BY MOUTH EVERY DAY ORAL ACTIVE NSUBCLARISSAC HRISTINE N 2021 [facility] PYRIDOXINE HCL 50MG TAB TAKE TWO TABLETS BY MOUTH EVERY DAY ORAL ACTIVE NSUBUGAC HRISTINE N 2022 [facility] RIVAROXABAN 15MG TAB TAKE ONE TABLET BY MOUTH EVERY DAY TO PREVENT STROKES WITH LARGEST MEAL OF THE DAY ORAL ACTIVE 05/07/2024 [id number] LEONOR DE LA CRUZ 2023 90 [facility] RIVAROXABAN 15MG TAB TAKE ONE TABLET BY MOUTH EVERY DAY TO PREVENT STROKES WITH LARGEST MEAL OF THE DAY ORAL DISCONT INUED (EDIT) 03/30/2024 [id number] 4 ERIKA LAMBERT 2022 30 [facility] SAW [place] CAP/TAB TAKE 1 CAPSULE BY MOUTH EVERY DAY ORAL ACTIVE Tanna TOSCANO N 2021 [facility] Allergies, Adverse Reactions, Alerts Combined list of allergies from Department of Defense and Veterans Affairs facilities. It does not include entries that were removed or entered in error. Substance Category Reaction Severity Reaction type Status Date Reported Comments Source IBUPROFEN Propensity to adverse reactions to drug (finding) Pharyngeal swelling active 2 [facility] Immunizations Combined list of available immunizations from the Department of [place] and Veterans Affairs facilities. Immunization Series Date Given Administered By Site Reaction Lot Number CVX Code Drug Safety Investigator/Cause Analyst Status Comments Source INFLUENZA, HIGH-DOSE, QUADRIVALENT 2022 JACQUES ULLOA RIGHT DELTO ID [id number] complet ed [facility] [...] [#/VOLUME] IN BLOOD BY AUTOMATED COUNT 8.11 10*3/uL 4.0 - 11.0 03/29 Specimen Type: BLOOD No comment entered. Ordering Provider: GILSON TOSCANO Report Released Date/Time: Mar 29, 2023 11:34 AM Reporting Lab: [facility] [address] Performing Lab: [facility] [address] [facility] CBC ERYTHROCYT ES [#/VOLUME] IN BLOOD BY AUTOMATED COUNT 4.12 10*6/uL 4.6 - 6.2 03/29 L Specimen Type: BLOOD No comment entered. Ordering Provider: GILSON TOSCANO Report Released Date/Time: Mar 29, 2023 11:34 AM Reporting Lab: [facility] [address] Performing Lab: [facility] [address] [facility] CBC HEMOGLOBIN [MASS/VOLU ME] IN BLOOD 12.3 g/dL 13.5 - 17.9 03/29 L Specimen Type: BLOOD No comment entered. Ordering Provider: GILSON TOSCANO Report Released Date/Time: Mar 29, 2023 11:34 AM Reporting Lab: [facility] [address] Performing Lab: [facility] [address] [facility] CBC HEMATOCRIT [VOLUME FRACTION] OF BLOOD BY AUTOMATED COUNT 38.6 41 - 54 03/29 L Specimen Type: BLOOD No comment entered. Ordering Provider: GILSON TOSCANO Report Released Date/Time: Mar 29, 2023 11:34 AM Reporting Lab: [facility] [address] Performing Lab: [facility] [address] [facility] CBC MCV [ENTITIC VOLUME] BY AUTOMATED COUNT 93.7 fL 80 - 100 03/29 Specimen Type: BLOOD No comment entered. Ordering Provider: GILSON TOSCANO Report Released Date/Time: Mar 29, 2023 11:34 AM Reporting Lab: [facility] [address] Performing Lab: [facility] [address] [facility] CBC MCH [ENTITIC MASS] BY AUTOMATED COUNT 29.9 pg 27 - 33 03/29 Specimen Type: BLOOD No comment entered. Ordering Provider: GILSON TOSCANO Report Released Date/Time: Mar 29, 2023 11:34 AM Reporting Lab: [facility] [address] Performing Lab: [facility] [address] [facility] CBC MCHC [MASS/VOLU ME] BY AUTOMATED COUNT 31.9 g/dL 32.0 - 37.5 03/29 L Specimen Type: BLOOD No comment entered. Ordering Provider: GILSON TOSCANO Report Released Date/Time: Mar 29, 2023 11:34 AM Reporting Lab: [facility] [address] Performing Lab: [facility] [address] [facility] CBC PLATELETS [#/VOLUME] IN BLOOD BY AUTOMATED COUNT 216 10*3/uL 150 - 400 03/29 Specimen Type: BLOOD No comment entered. Ordering Provider: GILSON TOSCANO Report Released Date/Time: Mar 29, 2023 11:34 AM Reporting Lab: [facility] [address] Performing Lab: [facility] [address] [facility] CBC PLATELET MEAN VOLUME [ENTITIC VOLUME] IN BLOOD BY AUTOMATED COUNT 10.1 fL 7.4 - 10.4 03/29 Specimen Type: BLOOD No comment entered. Ordering Provider: GILSON TOSCANO Report Released Date/Time: Mar 29, 2023 11:34 AM Reporting Lab: [facility] [address] Performing Lab: [facility] [address] [facility] CBC ERYTHROCYT E DISTRIBUTI ON WIDTH [RATIO] BY AUTOMATED COUNT 14.6 11.5 - 14.5 03/29 H Specimen Type: BLOOD No comment entered. Ordering Provider: GILSON TOSCANO Report Released Date/Time: Mar 29, 2023 11:34 AM Reporting Lab: [facility] [address] Performing Lab: [facility] [address] [facility] COMPREHE NSIVE METABOLI C PANEL+MG CREATININE [MASS/VOLU ME] IN SERUM OR PLASMA 1.4 mg/dL 0.7 - 1.2 03/29 H Specimen Type: PLASMA No comment entered. Ordering Provider: GILSON TOSCANO Report Released Date/Time: Mar 29, 2023 11:34 AM Reporting Lab: [facility] [address] Performing Lab: [facility] [address] [facility] COMPREHE NSIVE METABOLI C PANEL+MG UREA NITROGEN [MASS/VOLU ME] IN SERUM OR PLASMA 31 mg/dL 8 - 26 03/29 H Specimen Type: PLASMA No comment entered. Ordering Provider: GILSON TOSCANO Report Released Date/Time: Mar 29, 2023 11:34 AM Reporting Lab: [facility] [address] Performing Lab: [facility] [address] [facility] COMPREHE NSIVE METABOLI C PANEL+MG GLUCOSE [MASS/VOLU ME] IN SERUM OR PLASMA 94 mg/dL 70 - 100 03/29 Specimen Type: PLASMA No comment entered. Ordering Provider: GILSON TOSCANO Report Released Date/Time: Mar 29, 2023 11:34 AM Reporting Lab: [facility] [address] Performing Lab: [facility] [address] [facility] COMPREHE NSIVE METABOLI C PANEL+MG SODIUM [MOLES/VOL UME] IN SERUM OR PLASMA 138 mmol/L 136 - 145 03/29 Specimen Type: PLASMA No comment entered. Ordering Provider: GILSON TOSCANO Report Released Date/Time: Mar 29, 2023 11:34 AM Reporting Lab: [facility] [address] Performing Lab: [facility] [address] [facility] COMPREHE NSIVE METABOLI C PANEL+MG POTASSIUM [MOLES/VOL UME] IN SERUM OR PLASMA 4.3 mmol/L 3.5 - 5.1 03/29 Specimen Type: PLASMA No comment entered. Ordering Provider: GILSON TOSCANO Report Released Date/Time: Mar 29, 2023 11:34 AM Reporting Lab: [facility] [address] Performing Lab: [facility] [address] [facility] COMPREHE NSIVE METABOLI C PANEL+MG CHLORIDE [MOLES/VOL UME] IN SERUM OR PLASMA 105 mmol/L 98 - 107 03/29 Specimen Type: PLASMA No comment entered. Ordering Provider: GILSON TOSCANO Report Released Date/Time: Mar 29, 2023 11:34 AM Reporting Lab: [facility] [address] Performing Lab: [facility] [address] [facility] COMPREHE NSIVE METABOLI C PANEL+MG CARBON DIOXIDE, TOTAL [MOLES/VOL UME] IN SERUM OR PLASMA 23 mmol/L 22 - 29 03/29 Specimen Type: PLASMA No comment entered. Ordering Provider: GILSON TOSCANO Report Released Date/Time: Mar 29, 2023 11:34 AM Reporting Lab: [facility] [address] Performing Lab: [facility] [address] [facility] COMPREHE NSIVE METABOLI C PANEL+MG CALCIUM [MASS/VOLU ME] IN SERUM OR PLASMA 9.3 mg/dL 8.4 - 10.2 03/29 Specimen Type: PLASMA No comment entered. Ordering Provider: GILSON TOSCANO Report Released Date/Time: Mar 29, 2023 11:34 AM Reporting Lab: [facility] [address] Performing Lab: [facility] [address] [facility] COMPREHE NSIVE METABOLI C PANEL+MG PROTEIN [MASS/VOLU ME] IN SERUM OR PLASMA 7.1 g/dL 6.0 - 8.3 03/29 Specimen Type: PLASMA No comment entered. Ordering Provider: GILSON TOSCANO Report Released Date/Time: Mar 29, 2023 11:34 AM Reporting Lab: [facility] [address] Performing Lab: [facility] [address] [facility] COMPREHE NSIVE METABOLI C PANEL+MG ALBUMIN [MASS/VOLU ME] IN SERUM OR PLASMA 3.9 g/dL 3.5 - 5.2 03/29 Specimen Type: PLASMA No comment entered. Ordering Provider: GILSON TOSCANO Report Released Date/Time: Mar 29, 2023 11:34 AM Reporting Lab: [facility] [address] Performing Lab: [facility] [address] [facility] COMPREHE NSIVE METABOLI C PANEL+MG BILIRUBIN. TOTAL [MASS/VOLU ME] IN SERUM OR PLASMA 0.4 mg/dL 0.2 - 1.2 03/29 Specimen Type: PLASMA No comment entered. Ordering Provider: GILSON TOSCANO Report Released Date/Time: Mar 29, 2023 11:34 AM Reporting Lab: [facility] [address] Performing Lab: [facility] [address] [facility] COMPREHE NSIVE METABOLI C PANEL+MG MAGNESIUM [MASS/VOLU ME] IN SERUM OR PLASMA 2.1 mg/dL 1.6 - 2.6 03/29 Specimen Type: PLASMA No comment entered. Ordering Provider: GILSON TOSCANO Report Released Date/Time: Mar 29, 2023 11:34 AM Reporting Lab: [facility] [address] Performing Lab: [facility] [address] [facility] COMPREHE NSIVE METABOLI C PANEL+MG ANION GAP IN SERUM OR PLASMA 10 mmol/L 5 - 15 03/29 Specimen Type: PLASMA No comment entered. Ordering Provider: GILSON TOSCANO Report Released Date/Time: Mar 29, 2023 11:34 AM Reporting Lab: [facility] [address] Performing Lab: [facility] [address] [facility] COMPREHE NSIVE METABOLI C PANEL+MG ALKALINE PHOSPHATAS E [ENZYMATIC ACTIVITY/V OLUME] IN SERUM OR PLASMA 99 U/L 40 - 150 03/29 Specimen Type: PLASMA No comment entered. Ordering Provider: GILSON TOSCANO Report Released Date/Time: Mar 29, 2023 11:34 AM Reporting Lab: [facility] [address] Performing Lab: [facility] [address] [facility] COMPREHE NSIVE METABOLI C PANEL+MG ALANINE AMINOTRANS FERASE [ENZYMATIC ACTIVITY/V OLUME] IN SERUM OR PLASMA 16 U/L <55 - 55 03/29 Specimen Type: PLASMA No comment entered. Ordering Provider: GILSON TOSCANO Report Released Date/Time: Mar 29, 2023 11:34 AM Reporting Lab: [facility] [address] Performing Lab: [facility] [address] [facility] COMPREHE NSIVE METABOLI C PANEL+MG ASPARTATE AMINOTRANS FERASE [ENZYMATIC ACTIVITY/V OLUME] IN SERUM OR PLASMA 42 U/L <34 - 34 03/29 H Specimen Type: PLASMA No comment entered. Ordering Provider: GILSON TOSCANO Report Released Date/Time: Mar 29, 2023 11:34 AM Reporting Lab: [facility] [address] Performing Lab: [facility] [address] [facility] COMPREHE NSIVE METABOLI C PANEL+MG GLOMERULAR FILTRATION RATE/1.73 SQ M.PREDICTE D [VOLUME RATE/AREA] IN SERUM, PLASMA OR BLOOD BY CREATININE -BASED FORMULA (CKD-EPI 2020) 48 60 03/29 L Specimen Type: PLASMA No comment entered. Ordering Provider: GILSON TOSCANO Report Released Date/Time: Mar 29, 2023 11:34 AM Reporting Lab: [facility] [address] Performing Lab: [facility] [address] [facility] HEMOGLOB IN A1C HEMOGLOBIN [...] Mar 29, 2023 11:58 AM Reporting Lab: [facility] [address] Performing Lab: [facility] [address] [facility] CREATINI NE(INCLU PETAR EGFR) CREATININE [MASS/VOLU ME] IN SERUM OR PLASMA 1.8 mg/dL 0.7 - 1.2 11/22 H Specimen Type: PLASMA No comment entered. Ordering Provider: ISAAK GUZMAN Report Released Date/Time: Sep 27, 2022 10:47 AM Reporting Lab: [facility] [address] Performing Lab: [facility] [address] [place] [facility] CREATINI NE(INCLU PETAR EGFR) GLOMERULAR FILTRATION RATE/1.73 SQ M.PREDICTE D [VOLUME RATE/AREA] IN SERUM, PLASMA OR BLOOD BY CREATININE -BASED FORMULA (CKD-EPI 2020) 36 60 11/22 L Specimen Type: PLASMA No comment entered. Ordering Provider: ISAAK GUZMAN Report Released Date/Time: Sep 27, 2022 10:47 AM Reporting Lab: [facility] [address] Performing Lab: [facility] [address] [place] [facility] ALT/SGPT ALANINE AMINOTRANS FERASE [ENZYMATIC ACTIVITY/V OLUME] IN SERUM OR PLASMA 24 U/L 09/20 Specimen Type: PLASMA No comment entered. Ordering Provider: DEMETRIO MCKEON Report Released Date/Time: August 18, 2022 03:57 PM Reporting Lab: [facility] [address] Performing Lab: [facility] [address] [facility] AST/SGOT ASPARTATE AMINOTRANS FERASE [ENZYMATIC ACTIVITY/V OLUME] IN SERUM OR PLASMA 48 U/L 09/20 H Specimen Type: PLASMA No comment entered. Ordering Provider: DEMETRIO MCKEON Report Released Date/Time: August 18, 2022 03:57 PM Reporting Lab: [facility] [address] Performing Lab: [facility] [address] [facility] CBC LEUKOCYTES [#/VOLUME] IN BLOOD BY AUTOMATED COUNT 7.11 10*3/uL 4.0 - 11.0 09/20 Specimen Type: BLOOD No comment entered. Ordering Provider: DEMETRIO MCKEON Report Released Date/Time: August 18, 2022 03:57 PM Reporting Lab: [facility] [address] Performing Lab: [facility] [address] [place] [facility] CBC ERYTHROCYT ES [#/VOLUME] IN BLOOD BY AUTOMATED COUNT 3.95 10*6/uL 4.6 - 6.2 09/20 L Specimen Type: BLOOD No comment entered. Ordering Provider: DEMETRIO MCKEON Report Released Date/Time: August 18, 2022 03:57 PM Reporting Lab: [facility] [address] Performing Lab: [facility] [address] [place] [facility] CBC HEMOGLOBIN [MASS/VOLU ME] IN BLOOD 12.1 g/dL 13.5 - 17.9 09/20 L Specimen Type: BLOOD No comment entered. Ordering Provider: DEMETRIO MCKEON Report Released Date/Time: August 18, 2022 03:57 PM Reporting Lab: [facility] [address] Performing Lab: [facility] [address] [place] [facility] CBC HEMATOCRIT [VOLUME FRACTION] OF BLOOD BY AUTOMATED COUNT 37.5 41 - 54 09/20 L Specimen Type: BLOOD No comment entered. Ordering Provider: DEMETRIO MCKEON Report Released Date/Time: August 18, 2022 03:57 PM Reporting Lab: [facility] [address] Performing Lab: [facility] [address] [place] [facility] CBC MCV [ENTITIC VOLUME] BY AUTOMATED COUNT 94.9 fL 80 - 100 09/20 Specimen Type: BLOOD No comment entered. Ordering Provider: DEMETRIO MCKEON Report Released Date/Time: August 18, 2022 03:57 PM Reporting Lab: [facility] [address] Performing Lab: [facility] [address] [place] [facility] CBC MCH [ENTITIC MASS] BY AUTOMATED COUNT 30.6 pg 27 - 33 09/20 Specimen Type: BLOOD No comment entered. Ordering Provider: DEMETRIO MCKEON Report Released Date/Time: August 18, 2022 03:57 PM Reporting Lab: [facility] [address] Performing Lab: [facility] [address] [place] [facility] CBC MCHC [MASS/VOLU ME] BY AUTOMATED COUNT 32.3 g/dL 32.0 - 37.5 09/20 Specimen Type: BLOOD No comment entered. Ordering Provider: DEMETRIO MCKEON Report Released Date/Time: August 18, 2022 03:57 PM Reporting Lab: [facility] [address] Performing Lab: [facility] [address] [place] [facility] CBC PLATELETS [#/VOLUME] IN BLOOD BY AUTOMATED COUNT 237 10*3/uL 150 - 400 09/20 Specimen Type: BLOOD No comment entered. Ordering Provider: DEMETRIO MCKEON Report Released Date/Time: August 18, 2022 03:57 PM Reporting Lab: [facility] [address] Performing Lab: [facility] [address] [place] [facility] CBC PLATELET MEAN VOLUME [ENTITIC VOLUME] IN BLOOD BY AUTOMATED COUNT 9.4 fL 7.4 - 10.4 09/20 Specimen Type: BLOOD No comment entered. Ordering Provider: DEMETRIO MCKEON Report Released Date/Time: August 18, 2022 03:57 PM Reporting Lab: [facility] [address] Performing Lab: [facility] [address] [place] [facility] CBC ERYTHROCYT E DISTRIBUTI ON WIDTH [RATIO] BY AUTOMATED COUNT 13.9 11.5 - 14.5 09/20 Specimen Type: BLOOD No comment entered. Ordering Provider: DEMETRIO MCKEON Report Released Date/Time: August 18, 2022 03:57 PM Reporting Lab: [facility] [address] Performing Lab: [facility] [address] [place] [facility] CREATINI NE(INCLU PETAR EGFR) CREATININE [MASS/VOLU ME] IN SERUM OR PLASMA 1.5 mg/dL 0.7 - 1.2 09/20 H Specimen Type: PLASMA No comment entered. Ordering Provider: DEMETRIO MCKEON Report Released Date/Time: August 18, 2022 03:57 PM Reporting Lab: [facility] [address] Performing Lab: [facility] [address] [place] [facility] CREATINI NE(INCLU PETAR EGFR) GLOMERULAR FILTRATION RATE/1.73 SQ M.PREDICTE D [VOLUME RATE/AREA] IN SERUM, PLASMA OR BLOOD BY CREATININE -BASED FORMULA (CKD-EPI 2020) 45 09/20 L Specimen Type: PLASMA No comment entered. Ordering Provider: DEMETRIO MCKEON Report Released Date/Time: August 18, 2022 03:57 PM Reporting Lab: [facility] [address] Performing Lab: [facility] [address] [place] [facility] URINALYS IS COLOR OF URINE LIGHT-YE LLOW 02/22 Specimen Type: URINE No comment entered. Ordering Provider: GILSON TOSCANO Report Released Date/Time: Feb 22, 2022 03:18 PM Reporting Lab: [facility] [address] Performing Lab: [facility] [address] [facility] URINALYS IS SPECIFIC GRAVITY OF URINE 1.025 1.003 - 1.035 02/22 Specimen Type: URINE No comment entered. Ordering Provider: GILSON TOSCANO Report Released Date/Time: Feb 22, 2022 03:18 PM Reporting Lab: [facility] [address] Performing Lab: [facility] [address] [facility] URINALYS IS BILIRUBIN. TOTAL [PRESENCE] IN URINE BY TEST STRIP NEGATIVE 02/22 Specimen Type: URINE No comment entered. Ordering Provider: GILSON TOSCANO Report Released Date/Time: Feb 22, 2022 03:18 PM Reporting Lab: [facility] [address] Performing Lab: [facility] [address] [facility] URINALYS IS KETONES [MASS/VOLU ME] IN URINE BY TEST STRIP NEGATIVE 02/22 Specimen Type: URINE No comment entered. Ordering Provider: GILSON TOSCANO Report Released Date/Time: Feb 22, 2022 03:18 PM Reporting Lab: [facility] [address] Performing Lab: [facility] [address] [facility] URINALYS IS GLUCOSE [MASS/VOLU ME] IN URINE BY TEST STRIP NEGATIVE mg/dL <30 - 30 02/22 Specimen Type: URINE No comment entered. Ordering Provider: GILSON TOSCANO Report Released Date/Time: Feb 22, 2022 03:18 PM Reporting Lab: [facility] [address] Performing Lab: [facility] [address] [facility] URINALYS IS PROTEIN [MASS/VOLU ME] IN URINE BY TEST STRIP 50 mg/dL <20 - 20 02/22 Specimen Type: URINE No comment entered. Ordering Provider: GILSON TOSCANO Report Released Date/Time: Feb 22, 2022 03:18 PM Reporting Lab: [facility] [address] Performing Lab: [facility] [address] [facility] URINALYS IS PH OF URINE BY TEST STRIP 6.5 5.0 - 8.0 02/22 Specimen Type: URINE No comment entered. Ordering Provider: GILSON TOSCANO Report Released Date/Time: Feb 22, 2022 03:18 PM Reporting Lab: [facility] [address] Performing Lab: [facility] [address] [facility] URINALYS IS LEUKOCYTES [#/AREA] IN URINE SEDIMENT BY MICROSCOPY HIGH POWER FIELD NONE SEEN/[HP F] 0 - 7 02/22 Specimen Type: URINE No comment entered. Ordering Provider: GILSON TOSCANO Report Released Date/Time: Feb 22, 2022 03:18 PM Reporting Lab: [facility] [address] Performing Lab: [facility] [address] [facility] URINALYS IS BACTERIA [PRESENCE] IN URINE SEDIMENT BY LIGHT MICROSCOPY NONE SEEN 02/22 Specimen Type: URINE No comment entered. Ordering Provider: GILSON TOSCANO Report Released Date/Time: Feb 22, 2022 03:18 PM Reporting Lab: [facility] [id number] Performing Lab: [facility] [phone] [facility] URINALYS IS ERYTHROCYT ES [#/AREA] IN URINE SEDIMENT BY MICROSCOPY HIGH POWER FIELD 2 /[HPF] 0 - 3 02/22 Specimen Type: URINE No comment entered. Ordering Provider: GILSON TOSCANO Report Released Date/Time: Feb 22, 2022 03:18 PM Reporting Lab: [facility] [phone] Performing Lab: [facility] [address] [facility] URINALYS IS APPEARANCE OF URINE CLEAR 02/22 Specimen Type: URINE No comment entered. Ordering Provider: GILSON TOSCANO Report Released Date/Time: Feb 22, 2022 03:18 PM Reporting Lab: [facility] [phone] Performing Lab: [facility] [phone] [facility] URINALYS IS EPITHELIAL CELLS.SQUA MOUS [#/AREA] IN URINE SEDIMENT BY MICROSCOPY HIGH POWER FIELD NONE SEEN/[HP F] 02/22 Specimen Type: URINE No comment entered. Ordering Provider: GILSON TOSCANO Report Released Date/Time: Feb 22, 2022 03:18 PM Reporting Lab: [facility] [address] Performing Lab: [facility] [address] [facility] URINALYS IS HEMOGLOBIN [PRESENCE] IN URINE BY TEST STRIP NEGATIVE 02/22 Specimen Type: URINE No comment entered. Ordering Provider: GILSON TOSCANO Report Released Date/Time: Feb 22, 2022 03:18 PM Reporting Lab: [facility] [address] Performing Lab: [facility] [address] [facility] URINALYS IS NITRITE [PRESENCE] IN URINE BY TEST STRIP NEGATIVE 02/22 Specimen Type: URINE No comment entered. Ordering Provider: GILSON TOSCANO Report Released Date/Time: Feb 22, 2022 03:18 PM Reporting Lab: [facility] [address] Performing Lab: [facility] [address] [facility] URINALYS IS LEUKOCYTE ESTERASE [PRESENCE] IN URINE BY TEST STRIP NEGATIVE 02/22 Specimen Type: URINE No comment entered. Ordering Provider: GILSON TOSCANO Report Released Date/Time: Feb 22, 2022 03:18 PM Reporting Lab: [facility] [address] Performing Lab: [facility] [address] [facility] TSH W/REFLEX TO FREE T4 THYROTROPI N [UNITS/VOL UME] IN SERUM OR PLASMA 2.64 u[IU]/mL 0.35 - 4.94 02/22 Specimen Type: PLASMA No comment entered. Ordering Provider: GILSON TOSCANO Report Released Date/Time: Feb 22, 2022 03:18 PM Reporting Lab: [facility] [address] Performing Lab: [facility] [address] [facility] Vital Signs Combined list [...] ADM Date DC Date Status [facility]counter [id number] [facility] [id number] 06/02 [facility] Outpatient Encounter [id number] 07/12 [facility] [place] [facility] Outpatient Encounter [id number] 07/12 [facility] [place] [facility] Outpatient Encounter [id number] 08/11 [facility] [place] [facility] Outpatient Encounter [id number] 08/14 [facility] [place] [facility] Outpatient Encounter [id number] 08/15 [facility] [place] [facility] Outpatient Encounter [id number] 08[facility]16 [facility] [place] [facility] QNHP OL DIG ASSMT&MGMT 21+ [id number] Diagnos is: ICD-10- CM Z79.01 FPC () use of anticoa gulants
JAC MCKEON 08/18 [facility] [place] [facility] PRO PHONE CALL 11-20 MIN [id number] Diagnos is: ICD-10- CM Z51.81 Encount er for therape utic drug level monitor ing<br/ > JOSH GUZMAN B 09/27 [facility] [place] [facility] TTE W/DOPPLER COMPLETE [id number] Diagnos is: ICD-10- CM I48.91 Unspeci fied atrial fibrill ation<b r/> DENIZ HUGHESI 10/11 [facility] [place] [facility] Outpatient Encounter [id number] ANÍBAL HALL 10/23 [facility] [place] [facility] PRO PHONE CALL 11-20 MIN [id number] Diagnos is: ICD-10- CM 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
Lizzie DE LA CRUZ 05/07 [facility] Social History Combined list of available smoking, tobacco, and other social history from Department of Defense and Veterans Affairs facilities. Social History Type Response Date Comment Sour e Tobacco smoking status [facility] FORMER [facility] 03/29/2023 [facility] of [facility] OR MORE [facility]/29/2023 [facility] History of tobacco use [facility] FORMER US[facility] 02/22/2022 [facility]
--- OUTSIDE RECORDS SUMMARY | 2023-09-25 10:39 | XMS_ITS ---
Author Organization [facility] Address [address] [place] [address] Care Team Providers Care Campus Security Director Name Role Phone Unavailable Unavailable Unavailable Surgery Details Not on file Complications Check Surgery Details section. Procedure Estimated Blood Loss Check Surgery Details section. Procedure Findings Check Surgery Details section. Procedure Specimens Taken Check Surgery Details section.
--- OUTSIDE RECORDS SUMMARY | 2023-09-25 10:39 | XMS_ITS | Referral Summary ---
Author Organization [facility] Address [address] [place] [address] Care Team Providers Care Assembler Product Name Role Phone Elsewhere, Pcp Primary Care Provider Unavailabl e Source Comments Patient records contain information from all sites at [facility]. For routine questions regarding patient records, call [phone] during business hours, M-F 8:00 AM - 5:00 PM Central Time. Record requests for emergency care only can be directed to [phone] at any time.[facility] Allergies Active Allergy Reactions Criticality Noted [...] a capsul every other day Active vitamins A,C,C-nyzr-ejwinn (PRESERVISION AREDS) 7,160 Units-113 mg-100 Units per [...] on file Medical Devices Implanted Type Area Cluster Bore Operator Device Identifier Shelf Expiration Date Model / Serial / Lot 125 Left Trigen Intertan 10s Nail Tl-6al-4v Implanted:Qty : 1 on 10/21/[address] [facility] Other Left: Hip Delaney and Nephew [id number] 04/02/2023 [id number] / / [id number] Trigen Intertan Subtroch Lag Screw Tl-6al-4v Implanted:Qty : 1 on 10/21/[address] [facility] Other Left: Hip [employer]aney [employer] Nephew 08/29/2025 [id number] / / [id number] Procedures Procedure Name Priority Date/Time Associated Diagnosis [...] CDT Aditya Norton M.D. LAB BLOOD ADD-ON [facility] [address] [place] [address], [place] NPRG [facility] [address] [place] [address] from Last 3 Months or Most Recently Relevant to Health Maintenance Advance Directives For more information, please contact: [phone] * Full Code (Latest Code Status on File) Date Activated Date Inactivated Comments 10/25/2017 12:02 AM 11/02/2017 3:56 PM Question Answer Comments Full Code: Not Discussed Due to: Not medically appropriate * Full Code Date Activated Date Inactivated Comments 10/21/2017 12:22 AM 10/24/2017 11:59 PM Question Answer Comments Full Code: Not Discussed Due to: Not medically appropriate Care Teams Assembler Product Relationship Specialty Start Date End Date Elsewhere, Pcp PCP - General Boxing Inspector 04/11/19
--- OUTSIDE RECORDS SUMMARY | 2023-09-25 10:39 | XMS_ITS | Clinical Summary ---
Author Organization [facility] Address [address] [place] [address] Care Team Providers Care Mud Mill Tender Name Role Phone Elsewhere, Pcp Primary Care Provider Unavailabl e Source Comments Patient records contain information from all sites at [facility]. For routine questions regarding patient records, call [phone] during business hours, M-F 8:00 AM - 5:00 PM Central Time. Record requests for emergency care only can be directed to [phone] at any time.[facility] Allergies Active Allergy Reactions Criticality [...] a capsul every other day Active vitamins A,C,C-nkxg-pqmuns (PRESERVISION AREDS) 7,160 Units-113 mg-100 Units per [...] Comments Zoster Vaccines (1 of 2) 1985 Pneumococcal vaccine (65+ ye ars) (2 of 2 - PPSV23 or PCV20) 01/12/2015 01/12/2014 COVID-19 Vaccine (2022-2 4 season) 2022 03/18/2021, 06/03/2020, 06/03/2020, Additional history exists Depression Screening (Annual PHQ-2) 04/02/2023 Fall Risk Screen (Annual) 04/02/2023 Creatinine Level (Kidney Fun ction Test) 08/16/2023 08/15/2022, 08/10/2022, 07/12/2022, Additional history exists Potassium Level 08/16/2023 08/15/2022, 07/31, 07/12/2022, Additional history exists Sodium Level 08/16/2023 08/15/2022, 07/31, 07/12/2022, Additional history exists DTaP,Tdap,and Td Vaccines (3 - Td or Tdap) 08/05/2029 08/06/2019, 04/24/2015 Influenza Vaccine Completed 03/29/2023, , 01/29/2017 Medical Devices Implanted Type Area Desk Clerk Device Identifier Shelf Expiration Date Model / Serial / Lot 125 Left Trigen Intertan 10s Nail Tl-6al-4v Implanted:Qty : 1 on 10/21/2017 at [facility] Other Left: Hip [employer]aney [employer] Nephew [id number] 04/02/2023 [id number] Neelam Intertan Subtroch Lag Screw Tl-6al-4v Implanted:Qty : 1 on 10/21/2017 at [facility] Other Left: Hip [employer]aney [employer] Nephew 08/29/2025 [id number] / / [id number] Procedures Procedure Name Priority Date/Time Associated Diagnosis [...] CDT Aditya Norton M.D. LAB BLOOD ADD-ON [facility] [address] [place] [address], [place] NPR[facility] [address] [place] [address] from Last 3 Months or Most Recently Relevant to Health Maintenance Advance Directives For more information, please contact: [phone] * Full Code (Latest Code Status on File) Date Activated Date Inactivated Comments 10/25/2017 12:02 AM 11/02/2017 3:56 PM Question Answer Comments Full Code: Not Discussed Due to: Not medically appropriate * Full Code Date Activated Date Inactivated Comments 10/21/2017 12:22 AM 10/24/2017 11:59 PM Question Answer Comments Full Code: Not Discussed Due to: Not medically appropriate Care Teams Mud Mill Tender Relationship Specialty Start Date End Date Elsewhere, Pcp PCP - General End Finder Twisting Department 04/11/19
--- OUTSIDE RECORDS SUMMARY | 2023-09-25 10:39 | XMS_ITS | Referral Summary ---
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 Oxygen Saturation 97% 11/14/2022 12: 30 PM CDT Inhaled Oxygen Concentration - - Weight 93 kg (205 lb 2 oz) 11/14/2022 1 2:30 PM CDT patient reported Height 171.5 cm (5' 7.5) 11/14/2022 12 :30 PM CDT patient reported Body Mass Index 31.65 11/14/2022 12:30 PM CDT Plan of Treatment Not on file Care Teams Inside Trucker Relationship Specialty Start Date End Date Tony Ramos [facility] [address] [place] [address] PCP - General Family Practice 03/06/16 Sin Jones MD [address] [facility] [address] [place] [address] (work) Assigned Surgical Provider 11/18/22
--- OUTSIDE RECORDS SUMMARY | 2023-09-25 10:39 | XMS_ITS | Clinical Summary ---
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 [address] [place] [address] PCP - General Family Practice 03/06/16 Sin Jones MD [address] [facility] [address] [place] [address] Assigned Surgical Provider 11/18/22
== END 2023-09-25 10:38 | disposition home or self-care (01) ==
PROVIDERS: PCP Family Medicine; Visit Provider Family Medicine
DX: I10 Essential (primary) hypertension (principal); I48.20 Chronic atrial fibrillation, unspecified; N40.0 Benign prostatic hyperplasia without lower urinary tract symptoms
CPT/HCPCS: 80048; 85025

== ENCOUNTER 2023-11-30 11:00 | Outpatient (CLI) | payer MEDICARE, BC, SELFPAY | END 2023-11-30 11:01 | disposition home or self-care (01) | PROVIDERS: PCP Family Medicine; Visit Provider Family Medicine | DX: I10 Essential (primary) hypertension (principal); I50.9 Heart failure, unspecified | CPT/HCPCS: 80048; 83880 ==

== ENCOUNTER 2024-02-27 11:25 | Outpatient (CLI) | payer MEDICARE, BC, SELFPAY ==
--- OUTSIDE RECORDS SUMMARY | 2024-02-27 11:31 | XMS_ITS ---
Author Organization [facility] Address [address] [place] [address] Care Team Providers Care Finisher Machine Name Role Phone Unavailable Unavailable Unavailable Surgery Details Not on file Complications Check Surgery Details section. Procedure Estimated Blood Loss Check Surgery Details section. Procedure Findings Check Surgery Details section. Procedure Specimens Taken Check Surgery Details section.
--- OUTSIDE RECORDS SUMMARY | 2024-02-27 11:31 | XMS_ITS | Clinical Summary ---
Author Organization [facility] Address [address] [place] [address]. [place] [address] Care Team Providers Care Miner Operator Name Role Phone Tony Ramos Primary Care Provider [phone] Sin Jones MD Unavailable [phone] Allergies Active Allergy Reactions Criticality Noted Date Comments Furosemide Rash Low 11/14/2022 Rash, Itching Ibuprofen Swelling Medium 03/07/2016 Swelling of Lips and numbness Medications dutasteride (AVODART) 0.5 MG capsule Take 0.5 mg by mouth daily Active amLODIPine (NORVASC) 5 MG tabletIndications: Hypertension Take 5 mg by mouth daily Active [...] mouth daily Active tamsulosin (FLOMAX) 0.4 MG capsuleIndications :Right inguinal hernia Take 1 capsule (0.4 mg) by mouth daily Begin 4 days before surgery, including morning of surgery. 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 Gender Identity Not on file Sexual Orientation Not on file Last Filed Vital Signs Vital Sign Reading Time Taken Comments Blood Pressure 121/69 11/14/2022 12:30 PM CDT Pulse 79 11/14/2022 12:30 PM CDT Temperature - - Respiratory Rate 14 03/07/2016 10:2 0 AM ACCESS REGISTRAR Oxygen Saturation 97% 11/14/2022 12: 30 PM [...] 1935 ZOSTER IMMUNIZATION (1 of 2) 1985 FALL RISK ASSESSMENT 01/18/2000 MEDICARE ANNUAL WELLNESS VISIT 01/18/2000 RSV VACCINE (1 - 1-dose 75+ series) 2010 Pneumococcal Vaccine: 65+ Years (2 of 2 - PPSV23 or PCV20) 01/12/2015 01/12/2014 PHQ-2 (once per calendar year) 2023 COVID-19 Vaccine ( season) 2023 03/18/2021, 03/18/2021, 06/03/2020, Additional history exists INFLUENZA VACCINE (#1) 2023 02/03/2021, 2016 DTAP/TDAP/TD IMMUNIZATION (3 - Td or Tdap) 08/05/2029 08/06/2019, 04/24/2015 HPV IMMUNIZATION Aged Out No longer e ligible based on patient's age to complete this topic MENINGITIS IMMUNIZATION Aged Out No l onger eligible based on patient's age to complete this topic RSV MONOCLONAL ANTIBODY Aged Out No l onger eligible based on patient's age to complete this topic Insurance MEDICARE [facility] Care Teams Miner Operator Relationship Specialty Start Date End Date Tony Ramos [facility] [address] [place] [address] PCP - General Family Practice 03/06/16 Sin Jones MD [address] [facility] [address] [place] [address] Assigned Surgical Provider 11/18/22
--- OUTSIDE RECORDS SUMMARY | 2024-02-27 11:31 | XMS_ITS | Referral Summary ---
Author Organization [facility] Address [address] [facility] 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 Oxygen Saturation 97% 11/14/2022 12: 30 PM CDT Inhaled Oxygen Concentration - - Weight 93 kg (205 lb 2 oz) 11/14/2022 1 2:30 PM CDT patient reported Height 171.5 cm (5' 7.5) 11/14/2022 12 :30 PM CDT patient reported Body Mass Index 31.65 11/14/2022 12:30 PM CDT Plan of Treatment Not on file Insurance MEDICARE [facility] Care Teams Rehabilitation Services Coordinator Relationship Specialty Start Date End Date Tony Ramos [facility] [address] [place] [address] PCP - General Family Practice 03/06/16 Sin Jones MD [address] [facility] [address] [place] [address] Assigned Surgical Provider 11/18/22
--- OUTSIDE RECORDS SUMMARY | 2024-02-27 11:31 | XMS_ITS | Continuity of Care Document ---
Author Name [facility] Organization [facility] Care Team Providers Care Ed Special Education Teacher Name Role Phone [facility] Unavailable Unavailable Problems Combined list of problems from Department [facility] and [facility] facilities. It does not include entries that were removed or entered in error. Problem Status Onset Date Problem Type Date of Resolution Comments Source Atrial fibrillation Active Condition [facility] Bilateral hearing loss Active Condition [facility] Hypertension Active Condition [facility] Inguinal hernia Active Condition Mar 29, 2023 Entered By: GILSON TOSCANO Comment: right [facility] Joint pain Active Condition [facility] Long-term current use of anticoagulant Active Condition [facility] Pain of left hip joint Active Condition [facility] Diagnosis: ICD-10-CM Z79.01 assisted (current) use of anticoagulants Active Diagnosis [facility] Diagnosis: ICD-10-CM I48.91 Unspecified atrial fibrillation Active Diagnosis [facility] Diagnosis: ICD-10-CM Z51.81 Encounter for therapeutic drug level monitoring Active Diagnosis [facility] Medications Combined list of outpatient medications from [facility] and [facility] facilities.Medications provided include 1) outpatient medications from the last 15 months, and 2) patient-reported medications. Medication Details Route Status Patient Instructions Prescription Expires Prescription Number Last Dispense Date Ordering Provider Order Date Order Qty Source AMLODIPINE BESYLATE 5MG TAB TAKE ONE TABLET BY MOUTH EVERY DAY FOR BLOOD PRESSURE ORAL ACTIVE 03/27/2024 [id number] Tanna TOSCANO HRISTINE N 2022 90 [facility] AMLODIPINE BESYLATE 5MG TAB TAKE ONE TABLET BY MOUTH EVERY DAY FOR BLOOD PRESSURE ORAL DISCONT INUED 02/23/2023 [id number] Tanna TOSCANO HRISTINE N 2021 90 [facility] CALCIUM 250MG/VITAM IN D 125UNT TAB TAKE ONE TABLET BY MOUTH EVERY DAY ORAL ACTIVE Tanna TOSCANO HRISTINE N 2022 [facility] CYANOCOBALA MIN 500MCG TAB TAKE ONE TABLET BY MOUTH EVERY DAY ORAL ACTIVE Tanna TOSCANO HRISTINE N 2022 [facility] DILTIAZEM (EQV-TIAZAC AB4) 120MG 24HR CAP TAKE ONE CAPSULE BY MOUTH EVERY DAY FOR HEART RHYTHM ORAL ACTIVE 08/18/2024 [id number] NSTanna TREJO HRISTINE N 2023 90 [facility] DILTIAZEM (EQV-TIAZAC AB4) 120MG 24HR CAP TAKE ONE CAPSULE BY MOUTH EVERY DAY FOR HEART RHYTHM ORAL DISCONT INUED 08/19/2023 [id number] Tanna TOSCANO HRISTINE N 2022 90 [facility] MULTIVIT/OP HTH AREDS2/LUTE IN/ZEAXANTH IN CAP/TAB TAKE 1 TABLET BY MOUTH TWICE A DAY ORAL 06/07/2023 [id number] ZAIRA CHAPMAN 2022 240 [place] [facility] MULTIVITAMI NS CAP/TAB TAKE ONE TABLET BY MOUTH EVERY DAY ORAL ACTIVE JOECHRISTINATanna ROMO HRISTINE N 2021 [facility] PYRIDOXINE HCL 50MG TAB TAKE TWO TABLETS BY MOUTH EVERY DAY ORAL ACTIVE NSTanna TREJO HRISTINE N 2022 [facility] RIVAROXABAN 15MG TAB TAKE ONE TABLET BY MOUTH EVERY DAY TO PREVENT STROKES WITH LARGEST MEAL OF THE DAY ORAL ACTIVE 05/07/2024 [id number] LEONOR DE LA CRUZ 2023 90 [place] RIVAROXABAN 15MG TAB TAKE ONE TABLET BY MOUTH EVERY DAY TO PREVENT STROKES WITH LARGEST MEAL OF THE DAY ORAL DISCONT INUED (EDIT) 03/30/2024 [id number] ERIKA LAMBERT 2022 30 [place] [facility] SAW [place] CAP/TAB TAKE 1 CAPSULE BY MOUTH EVERY DAY ORAL ACTIVE NSUBCLARISSAC HRISTINE N 2021 [facility] Allergies, Adverse Reactions, Alerts Combined list of allergies from Department of Defense and Veterans Affairs facilities. It does not include entries that were removed or entered in error. Substance Category Reaction Severity Reaction type Status Date Reported Comments Source IBUPROFEN Propensity to adverse reactions to drug (finding) Pharyngeal swelling active 2 [facility] Immunizations Combined list of available immunizations from the Department of [facility] and Veterans Affairs facilities. Immunization Series Date Given Administered By Site Reaction Lot Number CVX Code Drug Bobbin Dumper Status Comments Source INFLUENZA, HIGH-DOSE, QUADRIVALENT 2022 JACQUES ULLOA RIGHT DELTO ID [id number] 197 complet ed [facility] COVID-19 (MODERNA), MRNA, LNP-S, PF, 100 MCG/0.5ML DOSE OR 50 MCG/0.25ML DOSE 2020 207 complet ed [facility] COVID-19 (PFIZER), MRNA, LNP-S, PF, 30 MCG/0.3 ML DOSE, ARASH-SUCROSE (AGES 12+ YEARS) 3 2020 217 complet ed [facility] INFLUENZA, HIGH-DOSE, QUADRIVALENT 2020 197 complet ed [facility] COVID-19 (MODERNA), MRNA, LNP-S, PF, 100 MCG/0.5ML DOSE OR 50 MCG/0.25ML DOSE 2020 207 complet ed [facility] COVID-19 (PFIZER), MRNA, LNP-S, PF, 30 MCG/0.3 ML DOSE 2 2020 208 complet ed [facility] COVID-19 (MODERNA), MRNA, LNP-S, PF, 100 MCG/0.5ML DOSE OR 50 MCG/0.25ML DOSE 2020 207 complet ed [facility] COVID-19 (PFIZER), MRNA, LNP-S, PF, 30 MCG/0.3 ML DOSE 1 2020 208 complet ed [facility] TDAP 2019 115 complet ed [facility] INFLUENZA, HIGH DOSE SEASONAL 2016 135 complet ed [facility] TDAP 2015 115 complet ed [facility] PNEUMOCOCCAL CONJUGATE PCV 13 2013 133 complet ed [place] [facility] Results Combined list of recent chemistry, hematology and other laboratory results from Department of Defense and Veterans Affairs, ranging from 15 months to all on record, depending upon the facility. Order Name Results Value Reference Range Date Interpretation Specimen Comments Source CBC LEUKOCYTES [#/VOLUME] IN BLOOD BY AUTOMATED COUNT 8.11 10*3/u L 4.0 - 11.0 03/29 Specimen Type: BLOOD No comment entered. Ordering Provider: GILSON TOSCANO Report Released Date/Time: Mar 29, 2023 11:34 AM Reporting Lab: [facility] [address] Performing Lab: [facility] [address] [facility] CBC ERYTHROCYTE S [#/VOLUME] IN BLOOD BY AUTOMATED COUNT 4.12 10*6/u L 4.6 - 6.2 03/29 L Specimen Type: BLOOD No comment entered. Ordering Provider: GILSON TOSCANO Report Released Date/Time: Mar 29, 2023 11:34 AM Reporting Lab: [facility] [address] Performing Lab: [facility] [address] [facility] CBC HEMOGLOBIN [MASS/VOLUM E] IN BLOOD 12.3 g/dL 13.5 - 17.9 03/29 L Specimen Type: BLOOD No comment entered. Ordering Provider: GILSON TOSCANO Report Released Date/Time: Mar 29, 2023 11:34 AM Reporting Lab: [facility] [address] Performing Lab: [facility] [address] [facility] CBC HEMATOCRIT [VOLUME FRACTION] OF BLOOD BY AUTOMATED COUNT 38.6 41 - 54 03/29 L Specimen Type: BLOOD No comment entered. Ordering Provider: GILSON TOSCANO Report Released Date/Time: Mar 29, 2023 11:34 AM Reporting Lab: [facility] [address] Performing Lab: [facility] [address] [facility] CBC MCV [ENTITIC VOLUME] BY AUTOMATED COUNT 93.7 fL 80 - 100 03/29 Specimen Type: BLOOD No comment entered. Ordering Provider: GILSON TOSCANO Report Released Date/Time: Mar 29, 2023 11:34 AM Reporting Lab: [facility] [address] Performing Lab: [facility] [address] [facility] CBC MCH [ENTITIC MASS] BY AUTOMATED COUNT 29.9 pg 27 - 33 03/29 Specimen Type: BLOOD No comment entered. Ordering Provider: GILSON TOSCANO Report Released Date/Time: Mar 29, 2023 11:34 AM Reporting Lab: [facility] [address] Performing Lab: [facility] [address] [facility] CBC MCHC [MASS/VOLUM E] BY AUTOMATED COUNT 31.9 g/dL 32.0 - 37.5 03/29 L Specimen Type: BLOOD No comment entered. Ordering Provider: GILSON TOSCANO Report Released Date/Time: Mar 29, 2023 11:34 AM Reporting Lab: [facility] [address] Performing Lab: [facility] [address] [facility] CBC PLATELETS [#/VOLUME] IN BLOOD BY AUTOMATED COUNT 216 10*3/u L 150 - 400 03/29 Specimen Type: BLOOD No comment entered. Ordering Provider: GILSON TOSCANO N Report Released Date/Time: Mar 29, 2023 11:34 AM Reporting Lab: [facility] [address] Performing Lab: [facility] [address] [facility] CBC PLATELET MEAN VOLUME [ENTITIC VOLUME] IN BLOOD BY AUTOMATED COUNT 10.1 fL 7.4 - 10.4 03/29 Specimen Type: BLOOD No comment entered. Ordering Provider: GILSON TOSCANO Report Released Date/Time: Mar 29, 2023 11:34 AM Reporting Lab: [facility] [address] Performing Lab: [facility] [address] [facility] CBC ERYTHROCYTE DISTRIBUTIO N WIDTH [RATIO] BY AUTOMATED COUNT 14.6 11.5 - 14.5 03/29 H Specimen Type: BLOOD No comment entered. Ordering Provider: GILSON TOSCANO Report Released Date/Time: Mar 29, 2023 11:34 AM Reporting Lab: [facility] [address] Performing Lab: [facility] [address] [facility] COMPREHEN SIVE METABOLIC PANEL+MG CREATININE [MASS/VOLUM E] IN SERUM OR PLASMA 1.4 mg/dL 0.7 - 1.2 03/29 H Specimen Type: PLASMA No comment entered. Ordering Provider: GILSON TOSCANO Report Released Date/Time: Mar 29, 2023 11:34 AM Reporting Lab: [facility] [address] Performing Lab: [facility] [address] [facility] COMPREHEN SIVE METABOLIC PANEL+MG UREA NITROGEN [MASS/VOLUM E] IN SERUM OR PLASMA 31 mg/dL 8 - 26 03/29 H Specimen Type: PLASMA No comment entered. Ordering Provider: GILSON TOSCANO Report Released Date/Time: Mar 29, 2023 11:34 AM Reporting Lab: [facility] [address] Performing Lab: [facility] [address] [facility] COMPREHEN SIVE METABOLIC PANEL+MG GLUCOSE [MASS/VOLUM E] IN SERUM OR PLASMA 94 mg/dL 70 - 100 03/29 Specimen Type: PLASMA No comment entered. Ordering Provider: GILSON TOSCANO Report Released Date/Time: Mar 29, 2023 11:34 AM Reporting Lab: [facility] [address] Performing Lab: [facility] [address] [facility] COMPREHEN SIVE METABOLIC PANEL+MG SODIUM [MOLES/VOLU ME] IN SERUM OR PLASMA 138 mmol/L 136 - 145 03/29 Specimen Type: PLASMA No comment entered. Ordering Provider: GILSON TOSCANO Report Released Date/Time: Mar 29, 2023 11:34 AM Reporting Lab: [facility] [address] Performing Lab: [facility] [address] [facility] COMPREHEN SIVE METABOLIC PANEL+MG POTASSIUM [MOLES/VOLU ME] IN SERUM OR PLASMA 4.3 mmol/L 3.5 - 5.1 03/29 Specimen Type: PLASMA No comment entered. Ordering Provider: GILSON TOSCANO Report Released Date/Time: Mar 29, 2023 11:34 AM Reporting Lab: [facility] [address] Performing Lab: [facility] [address] [facility] COMPREHEN SIVE METABOLIC PANEL+MG CHLORIDE [MOLES/VOLU ME] IN SERUM OR PLASMA 105 mmol/L 98 - 107 03/29 Specimen Type: PLASMA No comment entered. Ordering Provider: GILSON TOSCANO Report Released Date/Time: Mar 29, 2023 11:34 AM Reporting Lab: [facility] [address] Performing Lab: [facility] [address] [facility] COMPREHEN SIVE METABOLIC PANEL+MG CARBON DIOXIDE, TOTAL [MOLES/VOLU ME] IN SERUM OR PLASMA 23 mmol/L 22 - 29 03/29 Specimen Type: PLASMA No comment entered. Ordering Provider: GILSON TOSCANO Report Released Date/Time: Mar 29, 2023 11:34 AM Reporting Lab: [facility] [address] Performing Lab: [facility] [address] [facility] COMPREHEN SIVE METABOLIC PANEL+MG CALCIUM [MASS/VOLUM E] IN SERUM OR PLASMA 9.3 mg/dL 8.4 - 10.2 03/29 Specimen Type: PLASMA No comment entered. Ordering Provider: GILSON TOSCANO Report Released Date/Time: Mar 29, 2023 11:34 AM Reporting Lab: [facility] [address] Performing Lab: [facility] [address] [facility] COMPREHEN SIVE METABOLIC PANEL+MG PROTEIN [MASS/VOLUM E] IN SERUM OR PLASMA 7.1 g/dL 6.0 - 8.3 12/28 /2023 Specimen Type: PLASMA No comment entered. Ordering Provider: GILSON TOSCANO N Report Released Date/Time: Mar 29, 2023 11:34 AM Reporting Lab: [facility] [address] Performing Lab: [facility] [address] [facility] COMPREHEN SIVE METABOLIC PANEL+MG ALBUMIN [MASS/VOLUM E] IN SERUM OR PLASMA 3.9 g/dL 3.5 - 5.2 03/29 Specimen Type: PLASMA No comment entered. Ordering Provider: GILSON TOSCANO N Report Released Date/Time: Mar 29, 2023 11:34 AM Reporting Lab: [facility] [address] Performing Lab: [facility] [address] [facility] COMPREHEN SIVE METABOLIC PANEL+MG BILIRUBIN.T OTAL [MASS/VOLUM E] IN SERUM OR PLASMA 0.4 mg/dL 0.2 - 1.2 03/29 Specimen Type: PLASMA No comment entered. Ordering Provider: GILSON TOSCANO N Report Released Date/Time: Mar 29, 2023 11:34 AM Reporting Lab: [facility] [address] Performing Lab: [facility] [address] [facility] COMPREHEN SIVE METABOLIC PANEL+MG MAGNESIUM [MASS/VOLUM E] IN SERUM OR PLASMA 2.1 mg/dL 1.6 - 2.6 03/29 Specimen Type: PLASMA No comment entered. Ordering Provider: GILSON TOSCANO N Report Released Date/Time: Mar 29, 2023 11:34 AM Reporting Lab: [facility] [address] Performing Lab: [facility] [address] [facility] COMPREHEN SIVE METABOLIC PANEL+MG ANION GAP IN SERUM OR PLASMA 10 mmol/L 5 - 15 03/29 Specimen Type: PLASMA No comment entered. Ordering Provider: GILSON TOSCANO N Report Released Date/Time: Mar 29, 2023 11:34 AM Reporting Lab: [facility] [address] Performing Lab: [facility] [address] [facility] COMPREHEN SIVE METABOLIC PANEL+MG ALKALINE PHOSPHATASE [ENZYMATIC ACTIVITY/VO LUME] IN SERUM OR PLASMA 99 U/L 40 - 150 03/29 Specimen Type: PLASMA No comment entered. Ordering Provider: GILSON TOSCANO Report Released Date/Time: Mar 29, 2023 11:34 AM Reporting Lab: [facility] [address] Performing Lab: [facility] [address] [facility] COMPREHEN SIVE METABOLIC PANEL+MG ALANINE AMINOTRANSF ERASE [ENZYMATIC ACTIVITY/VO LUME] IN SERUM OR PLASMA 16 U/L <55 - 55 03/29 Specimen Type: PLASMA No comment entered. Ordering Provider: GILSON TOSCANO Report Released Date/Time: Mar 29, 2023 11:34 AM Reporting Lab: [facility] [address] Performing Lab: [facility] [address] [facility] COMPREHEN SIVE METABOLIC PANEL+MG ASPARTATE AMINOTRANSF ERASE [ENZYMATIC ACTIVITY/VO LUME] IN SERUM OR PLASMA 42 U/L <34 - 34 03/29 H Specimen Type: PLASMA No comment entered. Ordering Provider: GILSON TOSCANO Report Released Date/Time: Mar 29, 2023 11:34 AM Reporting Lab: [facility] [address] Performing Lab: [facility] [address] [facility] COMPREHEN SIVE METABOLIC PANEL+MG GLOMERULAR FILTRATION RATE/1.73 SQ M.PREDICTED [VOLUME RATE/AREA] IN SERUM, PLASMA OR BLOOD BY CREATININE- BASED FORMULA (CKD-EPI 2020) 48 60 03/29 L Specimen Type: PLASMA No comment entered. Ordering Provider: GILSON TOSCANO Report Released Date/Time: Mar 29, 2023 11:34 AM Reporting Lab: [facility] [address] Performing Lab: [facility] [address] [facility] HEMOGLOBI N A1C HEMOGLOBIN A1C/HEMOGLO BIN.TOTAL IN BLOOD 6.1 4.0 - 6.0 03/29 H Specimen Type: BLOOD Comment: Values obtained from A1C measurement s can vary. For typical A1C assays, a reported value of 7.0 could actually be between 6.7 and 7.3 if measured by a reference method. A reported value of 9.0 could actually be between 8.7 and 9.3. Ref: http://www. ngsp.org/[place] Pdata.asp Ordering Provider: GILSON TSOCANO Report Released Date/Time: Mar 29, 2023 11:58 AM Reporting Lab: [facility] [address] Performing Lab: [facility] [address] [facility] CREATININ E(INCLUDE S EGFR) CREATININE [MASS/VOLUM E] IN SERUM OR PLASMA 1.8 mg/dL 0.7 - 1.2 11/22 H Specimen Type: PLASMA No comment entered. Ordering Provider: ISAAK GUZMAN Report Released Date/Time: Sep 27, 2022 10:47 AM Reporting Lab: [facility] [address] Performing Lab: [facility] [address] [place] [facility] CREATININ E(INCLUDE S EGFR) GLOMERULAR FILTRATION RATE/1.73 SQ M.PREDICTED [VOLUME RATE/AREA] IN SERUM, PLASMA OR BLOOD BY CREATININE- BASED FORMULA (CKD-EPI 2020) 36 60 11/22 L Specimen Type: PLASMA No comment entered. Ordering Provider: ISAAK GUZMAN Report Released Date/Time: Sep 27, 2022 10:47 AM Reporting Lab: [facility] [address] Performing Lab: [facility] [address] [place] [facility] ALT/SGPT ALANINE AMINOTRANSF ERASE [ENZYMATIC ACTIVITY/VO LUME] IN SERUM OR PLASMA 24 U/L 09/20 Specimen Type: PLASMA No comment entered. Ordering Provider: DEMETRIO MCKEON Report Released Date/Time: August 18, 2022 03:57 PM Reporting Lab: [facility] [address] Performing Lab: [facility] [address] [place] [facility] AST/SGOT ASPARTATE AMINOTRANSF ERASE [ENZYMATIC ACTIVITY/VO LUME] IN SERUM OR PLASMA 48 U/L 09/20 H Specimen Type: PLASMA No comment entered. Ordering Provider: DEMETRIO MCKEON Report Released Date/Time: August 18, 2022 03:57 PM Reporting Lab: [facility] [address] Performing Lab: [facility] [address] [place] [facility] CBC LEUKOCYTES [#/VOLUME] IN BLOOD BY AUTOMATED COUNT 7.11 10*3/u L 4.0 - 11.0 09/20 Specimen Type: BLOOD No comment entered. Ordering Provider: DEMETRIO MCKEON Report Released Date/Time: August 18, 2022 03:57 PM Reporting Lab: [facility] [address] Performing Lab: [facility] [address] [place] [facility] CBC ERYTHROCYTE S [#/VOLUME] IN BLOOD BY AUTOMATED COUNT 3.95 10*6/u L 4.6 - 6.2 09/20 L Specimen Type: BLOOD No comment entered. Ordering Provider: DEMETRIO MCKEON Report Released Date/Time: August 18, 2022 03:57 PM Reporting Lab: [facility] [address] Performing Lab: [facility] [address] [place] [facility] CBC HEMOGLOBIN [MASS/VOLUM E] IN BLOOD 12.1 g/dL 13.5 - 17.9 09/20 L Specimen Type: BLOOD No comment entered. Ordering Provider: DEMETRIO MCKEON Report Released Date/Time: August 18, 2022 03:57 PM Reporting Lab: [facility] [address] Performing Lab: [facility] [address] [facility] CBC HEMATOCRIT [VOLUME FRACTION] OF BLOOD BY AUTOMATED COUNT 37.5 41 - 54 09/20 L Specimen Type: BLOOD No comment entered. Ordering Provider: DEMETRIO MCKEON Report Released Date/Time: August 18, 2022 03:57 PM Reporting Lab: [facility] [address] Performing Lab: [facility] [address] [place] [facility] CBC MCV [ENTITIC VOLUME] BY AUTOMATED COUNT 94.9 fL 80 - 100 09/20 Specimen Type: BLOOD No comment entered. Ordering Provider: DEMETRIO MCKEON Report Released Date/Time: August 18, 2022 03:57 PM Reporting Lab: [facility] [address] Performing Lab: [facility] [address] [place] [facility] CBC MCH [ENTITIC MASS] BY AUTOMATED COUNT 30.6 pg 27 - 33 09/20 Specimen Type: BLOOD No comment entered. Ordering Provider: DEMETRIO MCKEON Report Released Date/Time: August 18, 2022 03:57 PM Reporting Lab: [facility] [address] Performing Lab: [facility] [address] [place] [facility] CBC MCHC [MASS/VOLUM E] BY AUTOMATED COUNT 32.3 g/dL 32.0 - 37.5 09/20 Specimen Type: BLOOD No comment entered. Ordering Provider: DEMETRIO MCKEON Report Released Date/Time: August 18, 2022 03:57 PM Reporting Lab: [facility] [address] Performing Lab: [facility] [address] [place] [facility] CBC PLATELETS [#/VOLUME] IN BLOOD BY AUTOMATED COUNT 237 10*3/u L 150 - 400 09/20 Specimen Type: BLOOD No comment entered. Ordering Provider: DEMETRIO MCKEON Report Released Date/Time: August 18, 2022 03:57 PM Reporting Lab: [facility] [address] Performing Lab: [facility] [address] [place] [facility] CBC PLATELET MEAN VOLUME [ENTITIC VOLUME] IN BLOOD BY AUTOMATED COUNT 9.4 fL 7.4 - 10.4 09/20 Specimen Type: BLOOD No comment entered. Ordering Provider: DEMETRIO MCKEON Report Released Date/Time: August 18, 2022 03:57 PM Reporting Lab: [facility] [address] Performing Lab: [facility] [address] [place] [facility] CBC ERYTHROCYTE DISTRIBUTIO N WIDTH [RATIO] BY AUTOMATED COUNT 13.9 11.5 - 14.5 09/20 Specimen Type: BLOOD No comment entered. Ordering Provider: DEMETRIO MCKEON Report Released Date/Time: August 18, 2022 03:57 PM Reporting Lab: [facility] [address] Performing Lab: [facility] [address] [facility] CREATININ E(INCLUDE S EGFR) CREATININE [MASS/VOLUM E] IN SERUM OR PLASMA 1.5 mg/dL 0.7 - 1.2 09/20 H Specimen Type: PLASMA No comment entered. Ordering Provider: DEMETRIO MCKEON Report Released Date/Time: August 18, 2022 03:57 PM Reporting Lab: [facility] [address] Performing Lab: [facility] [address] [facility] CREATININ E(INCLUDE S EGFR) GLOMERULAR FILTRATION RATE/1.73 SQ M.PREDICTED [VOLUME RATE/AREA] IN SERUM, PLASMA OR BLOOD BY CREATININE- BASED FORMULA (CKD-EPI 2020) 45 09/20 L Specimen Type: PLASMA No comment entered. Ordering Provider: DEMETRIO MCKEON Report Released Date/Time: August 18, 2022 03:57 PM Reporting Lab: [facility] [address] Performing Lab: [facility] [address] [facility] Vital Signs Combined list of inpatient and outpatient Vital Signs from Department of Defense and Veterans Affairs, ranging from 12 months to all on record, depending upon the facility. Vital Sign Value Date Comments Source SYSTOLIC BLOOD PRESSURE 108 03/29/2023 11:30:00 [facility] DIASTOLIC BLOOD PRESSURE 62 03/29/2023 11:30:00 [facility] PULSE OXIMETRY 98% 03/29/2023 11:30:00 [facility] WEIGHT 203.6 03/29/2023 11:30:00 [facility] BMI 29kg/m2 03/29/2023 11:30:00 [facility] PAIN 0 03/29/2023 11:30:00 [facility] HEIGHT 69.75 03/29/2023 11:30:00 [facility] TEMPERATURE 96.7 03/29/2023 11:30:00 [facility] PULSE 95 03/29/2023 11:30:00 [facility] RESPIRATION 20 03/29/2023 11:30:00 [facility] Encounters Combined list of: 1) Encounters from Department of [facility] Affairs facilities going back up to thelast 18 months. 2) Encounters from the Department of [facility] facilities going back up to 280 months. Location Location Details Encounter Type Encounter Number Reason For Visit Attending Provider ADM Date DC Date Status Disposition Source [place] [facility] PRO PHONE CALL 11-20 MIN [id number] Diagnos is: ICD-10- CM Z51.81 Encount er for therape utic drug level monitor ing<br/ > [facility] [facility] TTE W/DOPPLER COMPLETE [id number] Diagnos is: ICD-10- CM I48.91 Unspeci fied atrial fibrill ation<b r/> DENIZ HUGHESI 10/11 [place] [facility] [place] [facility] Outpatient Encounter [id number] ANÍBAL HALL [facility] [place] [facility] PRO PHONE CALL 11-20 MIN [id number] Diagnos is: ICD-10- CM Z79.01 assisted (curren t) use of anticoa gulants
VIKTOR RUIZ 11/23 [facility] [place] [facility] Outpatient Encounter [id number] 03/29 [facility] OFFICE O/P EST HI 40-54 MIN [id number] Diagnos is: ICD-10- CM I48.91 Unspeci fied atrial fibrill ation<b r/> NSUBUGA,JENNIFER RISTINE N 03/29 [facility] [place] [facility] QNHP OL DIG ASSMT&MGMT 21+ [id number] Diagnos is: ICD-10- CM Z79.01 assisted (curren t) use of anticoa gulants
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
Lizzie DE LA CRUZ 05/07 [place] [facility] Social History Combined list of available smoking, tobacco, and other social history from Department of Defense and Veterans Affairs facilities. Social History Type Response Date Comment Sourc e Tobacco smoking status [facility]IS [facility]-TOBACCO FORMER USER 03/29/2023 [facility] History of tobacco use MO-TOBACCO QUIT 1 5 YRS OR MORE 03/29/2023 [facility] History of tobacco use MO-TOBACCO FORMER USER 02/22/2022 [facility]
--- OUTSIDE RECORDS SUMMARY | 2024-02-27 11:31 | XMS_ITS | Clinical Summary ---
Author Organization [facility] Address [address] [place] [address] Care Team Providers Care Gas Combustion Engineer Name Role Phone Elsewhere, Pcp Primary Care Provider Unavailabl e Source Comments Patient records contain information from all sites at [facility]. For routine questions regarding patient records, call [phone] during business hours, M-F 8:00 AM - 5:00 PM Central Time. Record requests for emergency care only can be directed to [phone] at any time.[facility] Allergies Active Allergy Reactions Criticality Noted Date Comments Ibuprofen Angioedema (Reselect Reaction) 01/07 Medications amLODIPine (NORVASC) 5 mg tablet Take 1 [...] tablet by mouth daily. 02/22/2022 Active calcium carbonate/vitam in D3 (CALCIUM 500 + D ORAL) Take by mouth. 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 Gender Identity Male 11/09/2017 9:35 AM CDT Sexual Orientation Straight 11/09/2017 9: 35 AM CDT Occupation Industry Job Start Date Job End Date [employer] Not on file Not on file Not on file Last Filed Vital Signs Vital Sign Reading Time Taken Comments Blood Pressure 120/70 09/14/2022 11:20 AM CDT Pulse 112 09/14/2022 11:20 AM CDT Temperature 36.2 C (97.2 F) 09/14/2022 11:20 AM CDT Respiratory Rate 16 09/14/2022 11:20 AM CDT Oxygen Saturation 98% 08/15/2022 1:42 PM CDT Inhaled Oxygen Concentration - - Weight 90.7 kg (200 lb) 09/14/2022 11:20 AM CDT Height 172.7 cm (5' 7.99) 08/10/2022 1:56 PM CD T Body Mass Index 30.42 08/10/2022 1:56 PM CDT Plan of Treatment Health Maintenance Due Date Last Done Comments Zoster Vaccines (1 of 2) 1985 RSV vaccine - (32-36 weeks) or 60+ years (1 - 1-dose 75+ series) 2010 Pneumococcal vaccine (65+ years) (2 of 2 - PPSV23 or PCV20) 01/12/2015 01/12/2014 Depression Screening (Annual PHQ-2) 04/02/2023 Fall Risk Screen (Annual) 04/02/2023 Creatinine Level (Kidney Function Test) 08/16/2023 08/15/2022, 08/10/2022, 07/12/2022, Additional history exists Potassium Level 08/16/2023 08/15/2022, 07/31, 07/12/2022, Additional history exists Sodium Level 08/16/2023 08/15/2022, 07/31, 07/12/2022, Additional history exists COVID-19 Vaccine ( season) 2023 03/18/2021, 06/03/2020, 06/03/2020, Additional history exists Influenza Vaccine (#1) 2024 3, 02/03/2021, 01/29/2017 DTaP,Tdap,and Td Vaccines (3 - Td or Tdap) 08/05/2029 08/06/2019, 04/24/2015 IPV Vaccines Aged Out No longer eligi ble based on patient's age to complete this topic Medical Devices Implanted Type Area Supervisory Lifeguard Device Identifier Shelf Expiration Date Model / Serial / Lot 125 Left Trigen Intertan 10s Nail Tl-6al-4v Implanted:Qty : 1 on 10/21/2017 at [facility] Other Left: Hip [employer]hew [id number] 04/02/2023 [id number] / / [id number] Trigen Intertan Subtroch Lag Screw Tl-6al-4v Implanted:Qty : 1 on 10/21/2017 at [facility] Other Left: Hip [employer] 08/29/2025 [id number] / / [id number] Procedures Procedure Name Priority Date/Time Associated Diagnosis [...] 2:08 PM CDT 08/15/2022 3:31 PM CDT us Aditya Norton M.D. LAB BLOOD ADD-ON Final Result [facility] [address] [place] [address], [place] NPRG [facility] [address] [place] [address] from Last 3 Months or Most Recently Relevant to Health Maintenance Insurance [facility] MEDICARE [facility] Advance Directives For more information, please contact: [phone] * Full Code (Latest Code Status on File) Date Activated Date Inactivated Comments 10/25/2017 12:02 AM 11/02/2017 3:56 PM Question Answer Comments Full Code: Not Discussed Due to: Not medically appropriate * Full Code Date Activated Date Inactivated Comments 10/21/2017 12:22 AM 10/24/2017 11:59 PM Question Answer Comments Full Code: Not Discussed Due to: Not medically appropriate Care Teams Gas Combustion Engineer Relationship Specialty Start Date End Date Elsewhere, Pcp PCP - General Instrument Panel Assembler 04/11/19
--- OUTSIDE RECORDS SUMMARY | 2024-02-27 11:31 | XMS_ITS | Referral Summary ---
Author Organization [facility] Address [address] [place] [address] Care Team Providers Care Licensed Psychologist Director Name Role Phone Elsewhere, Pcp Primary Care Provider Unavailabl e Source Comments Patient records contain information from all sites at [facility]. For routine questions regarding patient records, call [phone] during business hours, M-F 8:00 AM - 5:00 PM Central Time. 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 Gender Identity Male 11/09/2017 9:35 AM CDT [...] on file Medical Devices Implanted Type Area Curriculum And Assessment Coordinator Device Identifier Shelf Expiration Date Model / Serial / Lot 125 Left Trigen Intertan 10s Nail Tl-6al-4v Implanted:Qty : 1 on 10/21/2017 at [facility] Other Left: Hip [employer] [id number] 04/02/2023 [id number] / / [id number] Trigen Intertan Subtroch Lag Screw Tl-6al-4v Implanted:Qty : 1 on 10/21/2017 at [facility] Other Left: Hip [employer] 08/29/2025 [id number] / / [id number] Procedures Procedure Name Priority Date/Time Associated Diagnosis [...] CDT Aditya Norton M.D. LAB BLOOD ADD-ON Final Result [facility] [address] [place] [address], [facility] NPRG [facility] [address] [place] [address] from Last 3 Months or Most Recently Relevant to Health Maintenance Insurance [facility] MEDICARE [facility] ADMINISTRATION Advance Directives For more information, please contact: [phone] * Full Code (Latest Code Status on File) Date Activated Date Inactivated Comments 10/25/2017 12:02 AM 11/02/2017 3:56 PM Question Answer Comments Full Code: Not Discussed Due to: Not medically appropriate * Full Code Date Activated Date Inactivated Comments 10/21/2017 12:22 AM 10/24/2017 11:59 PM Question Answer Comments Full Code: Not Discussed Due to: Not medically appropriate Care Teams Licensed Psychologist Director Relationship Specialty Start Date End Date Elsewhere, Pcp PCP - General Physical Meteorologist 04/11/19
== END 2024-02-27 11:26 | disposition home or self-care (01) ==
PROVIDERS: PCP Family Medicine; Visit Provider Family Medicine
DX: R19.7 Diarrhea, unspecified (principal); I10 Essential (primary) hypertension; R53.83 Other fatigue; I50.9 Heart failure, unspecified
CPT/HCPCS: 80048; 82728; 83880; 85025

== ENCOUNTER 2024-03-07 10:07 | Outpatient (RCR) | payer MEDICARE, BC, SELFPAY ==
[2024-03-07] VITALS (8 sets, daily range): BP systolic 93–129; BP diastolic 51–68; PULSE 67–88; RESP 16–18; TEMP 36.1–36.5; O2SAT 90–97
== END 2024-09-03 23:59 | disposition home or self-care (01) ==
LOC: CCIC 10:07
PROVIDERS: PCP Family Medicine; Referring Provider Family Medicine; Visit Provider Physician Assistant
DX: D64.9 Anemia, unspecified (principal); I12.9 Hypertensive chronic kidney disease with stage 1 through stage 4 chronic kidney disease, or unspecified chronic kidney disease; N18.30 Chronic kidney disease, stage 3 unspecified; I48.91 Unspecified atrial fibrillation
CPT/HCPCS: 36415; 36430; 86850; 86900; 86901; 86922; P9016

== ENCOUNTER 2024-03-12 12:45 | Outpatient (CLI) | payer MEDICARE, BC, SELFPAY | END 2024-03-12 12:46 | disposition home or self-care (01) | LOC: FBOREF 12:45 | PROVIDERS: PCP Family Medicine; Visit Provider Family Medicine | DX: D64.9 Anemia, unspecified (principal) | CPT/HCPCS: 85018 ==

== ENCOUNTER 2024-04-07 11:35 | Outpatient (CLI) | payer MEDICARE, BC, SELFPAY ==
--- NOTE | 2024-04-07 13:11 | W.ANESCHARGE ---
Anesthesia Charges Start Date/Time Anesthesia Start Date: 04/07/24 Anesthesia Start Time: 12:24 Stop Date/Time Anesthesia Stop Date: 04/07/24 Anesthesia Stop Time: 13:52 Summary Extremes of Age - Over 70 or under 1: MDA
--- NOTE | 2024-04-07 13:56 | W.ANESCHARGE ---
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
== END 2024-04-07 11:36 | disposition home or self-care (01) ==
LOC: OP CLINIC 11:36
PROVIDERS: PCP Family Medicine; Visit Provider Surgery
DX: D50.9 Iron deficiency anemia, unspecified (principal); D12.2 Benign neoplasm of ascending colon; D49.0 Neoplasm of unspecified behavior of digestive system; D12.3 Benign neoplasm of transverse colon
CPT/HCPCS: 00813; 43239; 45381; 45385; 88305; 99100; J2371; J2704

== ENCOUNTER 2024-04-16 11:15 | Outpatient (CLI) | payer MEDICARE, BC, SELFPAY | END 2024-04-16 11:16 | disposition home or self-care (01) | LOC: NFLDREF 04-21 03:44 | PROVIDERS: PCP Family Medicine; Referring Provider Family Medicine; Visit Provider Surgery | DX: D64.9 Anemia, unspecified (principal) | CPT/HCPCS: 85018 ==

== ENCOUNTER 2024-05-05 10:51 | Outpatient (CLI) | payer MEDICARE, BC, SELFPAY | END 2024-05-05 10:52 | disposition home or self-care (01) | PROVIDERS: PCP Family Medicine; Visit Provider Family Medicine | DX: D50.0 Iron deficiency anemia secondary to blood loss (chronic) (principal); I10 Essential (primary) hypertension | CPT/HCPCS: 82728; 85025 ==

== ENCOUNTER 2024-09-04 13:08 | Outpatient (CLI) | payer MEDICARE, BC, SELFPAY | END 2024-09-04 13:09 | disposition home or self-care (01) | PROVIDERS: PCP Family Medicine; Visit Provider Nurse Practitioner Family | DX: M79.641 Pain in right hand (principal) | CPT/HCPCS: 84550; 85025 ==